=== PATIENT | male | born 1960 | race Caucasian/White ===

== ENCOUNTER 2024-04-02 14:10 | Inpatient (IN) | payer OTHER, SELFPAY ==
[2024-04-02] VITALS (15 sets, daily range): BP systolic 118–159; BP diastolic 58–100; BMI 32.9
--- NOTE | 2024-04-02 09:53 | EDRN ---
Edie GUNTER in room w/pt.
--- NOTE | 2024-04-02 09:55 | ED.GENMED ---
History of Present Illness
General
Chief Complaint: Abdominal Symptoms
Time Seen by Provider: 04/02/24 09:42
History of Present Illness
History of Present Illness:
63-year-old male with history of sarcoidosis presents to the emergency department for evaluation of abdominal distention and bloating with increased belching and flatus, worsening over the past week. Reports a 20+ pound weight loss in the past 3 to
4 months unintentionally. No night sweats. Generally no appetite and early satiety is reported as well. No history of abdominal surgeries. Does report 1 episode of bright red blood per rectum 3 weeks ago but none since. No history of
colonoscopy.
Past History
Past History
ED Past Medical History: None
ED Past Surgical History: None
Social History
Tobacco: Non-smoker
Alcohol: Occasional
Drug: None
Employment: Employed
Review of Systems
Review of Systems
Allergies reviewed?: Yes
All Other Systems: ROS reviewed and negative except as documented in HPI and ROS
Phy Exam
Physical Exam
Physical Exam:
GEN: Well appearing, NAD, WDWN
HEENT: Oral mucosa moist, no scleral icterus
Cardiac: Regular rate and rhythm, no murmur
Lung: No respiratory distress, no tachypnea
Abdomen: Protuberant abdomen/distended, no rigidity, grossly nontender
MSK: No gross deformity or injuries
Skin: Good color, no pallor or jaundice, no rashes
Neuro: AO x3, moves all extremities freely
Psych: disheveled, cooperative
Course
Orders/Labs/Results
Orders:
Orders
04/02/24 Breakfast
NPO
Allow oral meds: No
Allow clear liquids: No
NPO with Ice Chips: No
04/02/24 09:55
CT Abd/Pel (IV only)-DH only Urgent
Comment:
Reason For Exam: abd distention/bloating
04/02/24 10:29
Complete Blood Count/With Diff Urgent
Comprehensive Metabolic Panel Urgent
Lipase Urgent
04/02/24 12:30
0.9% Sodium Chloride 1000 ml [Nss] 1,000 ml IV BOLUS
Piperacillin/Tazo 4.5 Gram [Zosyn] 4.5 gram in 100 ml IV NOW
04/02/24 13:01
Lactic Acid Q4H
Comment: CANCEL 2nd LACTIC ACID IF 1st LACTIC ACID IS LESS THAN 2
Blood Culture Q30M
ARA Source: Blood/Venous
Specimen Description:
04/02/24 13:46
Sequential Compression Device [Pneumatic Compression Sleeves] As Directed
Type: Knee high
DX Deep Vein Thrombosis Video Routine
04/02/24 13:51
Admit/Transfer Patient As Directed
Co-Sign Provider:
Level of Care: Inpatient admission
Assign to:: Medical/Surgical
Physician / Group: alex
Diagnosis: perforated sigmoid malignancy
Reason for Hospitalization: perforated sigmoid malignancy
Expected length of stay greater than two midnights?: Yes
ELOS- Estimated Length of Stay in days: 2
I certify the patient meets the requirements for IP care: Yes
PRN Pain Medication Management As Directed
May give lesser potent ordered pain med per pt: Yes
preference::
Protocol:: Medication orders for pain may be administered in a
manner that supports deferring to patient preference
when the pt is:
- Requesting an ordered lesser potent pain medication.
Least to most potent pain medications are defined
as: acetaminophen < NSAID < tramadol < opioids
(morphine, oxycodone, hydromorphone).
- Requesting a lesser dose of the same medication IF
ORDERED.
- Requesting a less intrusive route of administration
if both routes are prescribed by the provider (PO <
IV).
04/02/24 13:52
Code Status As Directed
Resuscitation Status: Full Code
04/02/24 14:11
Blood Culture Q30M
ARA Source: Blood/Venous
Specimen Description:
04/02/24 14:58
HYDROmorphone [Dilaudid] 0.5 mg IV Q4HPRN PRN
Ondansetron Injectable [Zofran] 4 mg IV Q6HPRN PRN
04/02/24 16:30
Lactic Acid Q4H
Comment: CANCEL 2nd LACTIC ACID IF 1st LACTIC ACID IS LESS THAN 2
Abnormal Lab Results
04/02/24
10:29
WBC 21.3 H 10^3/uL
(4.8-10.8)
RBC 4.35 L 10^6/uL
(4.70-6.10)
Hgb 9.5 L g/dL
(13.0-18.0)
Hct 31.7 L %
(39.0-52.0)
MCV 72.9 L fL
(80.0-94.0)
MCH 21.8 L pg
(27.0-31.0)
MCHC 30.0 L g/dL
(33.0-37.0)
RDW 17.1 H %
(11.5-14.5)
Plt Count 693 H 10^3/uL
(130-400)
Abs Immat Gran (auto) 0.1 H 10^3/uL
(0-0.05)
Absolute Neuts (auto) 18.6 H 10^3/uL
(1.4-6.5)
Absolute Monos (auto) 1.3 H 10^3/uL
(0.1-0.6)
Immature Gran % 0.6 H %
(0-0.5)
Neutrophils % 87.4 H %
(42.2-75.2)
Lymphocytes % 5.6 L %
(20.5-51.1)
Sodium 134 L mmol/L
(135-145)
Glucose 130 H mg/dl
(70-99)
AST 14 L U/L
(17-59)
Total Protein 6.0 L g/dl
(6.3-8.2)
Albumin 2.9 L g/dl
(3.5-5.0)
04/02/24 10:29
04/02/24 10:29
Vital Signs
Initial and Last Documented VS:
Initial Vital Signs
Temp Pulse Resp BP Pulse Ox
98.1 F 93 16 143/89 98
04/02/24 09:13 04/02/24 09:13 04/02/24 09:13 04/02/24 09:13 04/02/24 09:13
Last Documented Vital Signs
Temp Pulse Resp BP Pulse Ox
98.1 F 78 16 130/77 98
04/02/24 09:13 04/02/24 15:20 04/02/24 15:20 04/02/24 15:20 04/02/24 15:20
MDM/Problems Addressed
MDM/Problems Addressed:
Imaging unfortunately reveals a contained perforation of the sigmoid colon likely from malignancy. Patient started on broad-spectrum antibiotics and IV fluids and will admit to the hospital, colorectal surgery consulted for further management
*Critical Care Note
Total Time (30-74mins, 75-104mins- exclusive of procedures): 35 mins
comment:
Critical care time: 35 minutes
Critical care time was exclusive of: Separately billable procedures, treating other patients, and teaching time
Critical care was necessary to treat or prevent imminent or life-threatening deterioration of the following conditions: Colonic perforation requiring urgent OR
Critical care time spent personally by me on the following activities:
[x] Review of old charts
[x] Obtaining history from patient or surrogate
[x] Ordering and review of the laboratory studies
[x] Ordering and review of radiographic studies
[x] Ordering and performing treatments and interventions
[x] Patient patient's response to treatment
[x] Development of treatment plan with patient or surrogate
ED Attending Note
-
Portions of this chart may have been created with voice recognition software.� Occasional wrong word or��sound alike� substitutions may have occurred due to the inherent limitations of voice recognition software.
Discharge Plan
Departure
Patient Disposition: Admit
Date of Disposition: 04/02/24
Time of Disposition: 12:55
Admit to: IMU
Presentation/result/management discussed w/ accepting MD/DO: Hospitalist
Discharge Problem:
Perforated sigmoid colon
Interventions
Interventions:
*Risk Screen - Suicide Last Done: 04/02/24 10:25
*General Assessment Last Done: 04/02/24 10:25
*Neglect/Abuse Screening Last Done: 04/02/24 10:25
ED- Fall Risk Assessment Last Done: 04/02/24 10:25
*ED COVID-19 Vaccine History Last Done: 04/02/24 10:25
*Nursing Disposition Last Done: 04/02/24 15:24
MB-Tinzlh-Cfrihwuovw Assessment Last Done: 04/02/24 10:25
Discharge Date and Time
Discharge Date/Time: 04/02/24 15:25
[2024-04-02 10:57] LABS: % Basophils 0.2 % (0-2); % Immature Granulocytes 0.6 % (0-0.5); % Lymphocytes 5.6 % (20.5-51.1); % Monocytes 6.2 % (1.7-9.3); % Neutrophils 87.4 % (42.2-75.2); Absolute Immature Granulocytes 0.1 10^3/uL (0-0.05); Absolute Lymphocytes 1.2 10^3/uL (1.2-3.4); Absolute Monocytes 1.3 10^3/uL (0.1-0.6); Absolute Neutrophils 18.6 10^3/uL (1.4-6.5); Hematocrit 31.7 % (39.0-52.0); Hemoglobin 9.5 g/dL (13.0-18.0); Mean Corpuscular Hgb 21.8 pg (27.0-31.0); Mean Corpuscular Volume 72.9 fL (80.0-94.0); Mean Platelet Volume 8.3 fL (7.4-10.4); Nucleated Red Blood Cells % 0 % (-); Platelet Count 693 10^3/uL (130-400); Red Blood Cell Count 4.35 10^6/uL (4.70-6.10); Red Cell Dist. Width 17.1 % (11.5-14.5); White Blood Cell Count 21.3 10^3/uL (4.8-10.8)
[2024-04-02 10:59] LABS: ALT (SGPT) 13 U/L (0-50); AST (SGOT) 14 U/L (17-59); Albumin 2.9 g/dl (3.5-5.0); Alkaline Phosphatase 117 U/L (38-126); Blood Urea Nitrogen 18 mg/dl (9-20); Calcium 9.1 mg/dl (8.4-10.2); Carbon Dioxide 29 mmol/L (22-30); Chloride 98 mmol/L (98-107); Estimated Creatinine Clearance 114 ml/min; Glucose 130 mg/dl (70-99); Lipase 40 U/L (23-300); Potassium 4.9 mmol/L (3.5-5.1); Sodium 134 mmol/L (135-145); Total Bilirubin 0.2 mg/dl (0.2-1.3); eGFR > 60.00
[2024-04-02 13:33] LABS: Lactic Acid 1.3 mmol/L (0.7-2.0)
--- NOTE | 2024-04-02 13:39 | CON.CRS ---
Medical History
-
Chief Complaint: abdominal bloating
History of Present Illness:
Mr Jacinto is a 63 yo male with a history of BL THR and sarcoid who presents with nausea with diarrhea and abdominal discomfort over the last 3-4 weeks. He does note one large bloody BM around Thanksgiving but denies bloody stools otherwise. He
notes an intentional weight loss of about 130lbs over the last years or so but a recent unplanned weight loss of 27lbs over the last 5 weeks. He notes increasing abdominal distention and discomfort causing him to present. He notes he is belching but
also passing flatus and some liquid stool with debris. He has never had a colonoscopy and reports a family history of colon ca in his mother. His brother is at bedside to assist with history.
Past Medical History
Past Medical History: Other (Sarcoid)
Past Surgical History: Orthopedic (BL THR)
Social History
Tobacco: Non-Smoker
Alcohol: Occasional
Family History
Family History: Cancer (colon ca in mother at age 53)
Allergies / Home Medications
Allergy/AdvReac Type Severity Reaction Status Date / Time
No Known Allergies Allergy Verified 04/02/24 09:13
�Medication �Instructions �Recorded �Confirmed �Type
Co Q-10 1 tab PO DAILY 09/07/16 09/07/16 History
Fish Oil [place]-3 Softgel 2 tab PO DAILY 09/07/16 09/07/16 History
L Argine 2 tab PO DAILY 09/07/16 09/07/16 History
Lactobacillus acidophilus 10 1 tab PO DAILY 09/07/16 09/07/16 History
billion cell capsule (Probiotic)
Red Yeast Rice 2 tab PO DAILY 09/07/16 09/07/16 History
Tuneric 1 tab PO DAILY 09/07/16 09/07/16 History
Vitamin B Complex 1 tab PO DAILY 09/07/16 09/07/16 History
Vitamin D 1 tab PO DAILY 09/07/16 09/07/16 History
Vitamin E 1 tab PO DAILY 09/07/16 09/07/16 History
glucosamine sulfate dipotassium Cl 2 cap PO DAILY 09/07/16 09/07/16 History
500 mg-chondroitin 400 mg capsule
(Glucosamine Sulfate 2
KCL-Chondroitin)
albuterol sulfate 90 mcg/actuation 1 puff inhalation Q4HPRN PRN 09/09/16 Rx
aerosol inhaler (Ventolin HFA) shortness of breath ##1
azithromycin 250 mg tablet 250 mg PO DAILY #3 tabs 09/09/16 Rx
benzonatate 100 mg capsule 200 mg (2 x 100 mg) PO TIDPRN PRN 09/09/16 Rx
COUGH ##10
cefuroxime axetil 500 mg tablet 500 mg PO BID #10 tabs 09/09/16 Rx
fluticasone propionate 50 1 spray intranasal DAILY ##1 09/09/16 Rx
mcg/actuation nasal
spray,suspension
guaifenesin 100 mg/5 mL oral liquid 100 mg (5 mL) PO Q4HPRN PRN cough 09/09/16 Rx
##30
prednisone 10 mg tablet 10 mg PO .PAPER #40 tabs 09/09/16 Rx
Review of Systems
-
History Source: Patient and Family
All other systems: Negative unless noted
A 10 point review of systems was completed, and was negative except as per HPI.
Physical Exam
Vital Signs
Temp 98.1 F 04/02/24 09:13
Pulse 83 04/02/24 13:00
Resp Rate 16 04/02/24 13:00
Blood pressure 133/88 04/02/24 13:00
SaO2 100 04/02/24 13:00
04/01/24 04/02/24 04/03/24
06:59 06:59 06:59
Actual Weight 106.8 kg
Body Mass Index (BMI) 32.9
Lab Results / Allergies
04/02/24 10:29
04/02/24 10:
WBC 21.3 10^3/uL (4.8-10.8) H 04/02/24 10:
Hgb 9.5 g/dL (13.0-18.0) L 04/02/24 10:
Hct 31.7 % (39.0-52.0) L 04/02/24 10:
Plt Count 693 10^3/uL (130-400) H 04/02/24 10:
Abs Immat Gran (auto) 0.1 10^3/uL (0-0.05) H 04/02/24 10:
Neutrophils % 87.4 % (42.2-75.2) H 04/02/24 10:
Allergy/AdvReac Type Severity Reaction Status Date / Time
No Known Allergies Allergy Verified 04/02/24 09:13
Physical Exam
General: No Apparent Distress
HEENT: Moist Mucous Membranes
Respiratory: Non Labored Respirations
GI: Soft, Tender (generalized but without rebound, rigidity or guarding) and Distended
Skin: Warm and Dry
Neuro: Awake and Alert
Psych: Calm
Data Reviewed
-
CT Scan: Image Personally Visualized and interpreted, Report Reviewed by me, Discussed with Physician, Discussed with Patient and Discussed with Family
Labs: Labs Reviewed by me, Discussed with Physician, Discussed with Patient and Discussed with Family
Old Records: Reviewed
Assessment / Plan
-
Mr Jacinto is a 63 yo male with a history of BL THR and sarcoid who presents with nausea with diarrhea and abdominal discomfort over the last 3-4 weeks. He does note one large bloody BM around Thanksgiving but denies bloody stools otherwise. He
presents with increasing distention and belching. CT imaging with obstructing mass in the sigmoid colon with focal perforation/free air and phlegmonous changes. Afebrile with stable vital signs. Significant leukocytosis noted (wbc 21.3).
Admit for continued treatment
Keep NPO for OR today for emergent operative intervention with exploratory laparotomy and colostomy creation
Continue IV zosyn which was initiated in the ED
IVF as per primary team
Analgesics/antiemetics
SCDs for VTE ppx intraop
--- NOTE | 2024-04-02 13:55 | HPS.HSE ---
Family Physician
-
Family Physician: Alejo England, DO
Chief Complaint
-
abdominal pain
History of Present Illness
63-year-old male past medical history of sarcoidosis, presenting with 3 weeks of abdominal pain, distention and bloating with 20 pound weight loss in the past 3 to 4 months unintentionally. Denies fevers or night sweats. He had 1 episode of bright
red blood per rectum 3 weeks ago but none since. Denies nausea or vomiting. He had been having loose stools until 3 days ago when he stopped having bowel movements. He finally had a bowel movement this morning.
His mother had colon cancer at age of 53 and required colon resection.
He drinks alcohol occasionally. Denies smoking.
Medical History
Past Medical History
Past Medical History: Reports Other (sarcoidosis)
Past Surgical History: Reports Other (Double hip replacement,)
Social History
Tobacco: Non-smoker
Alcohol: Occasional
Drug: None
Family History
Family History: Other (His mother had colon cancer at age of 53 and required colon resection.)
Allergies / Home Medications
Allergies reflects when Allergies were last updated in [facility].
Home Medications with original date entered in [facility]
Allergy/Medication List:
Allergies
Allergy/AdvReac Type Severity Reaction Status Date / Time
No Known Allergies Allergy Verified 04/02/24 09:13
Home Medications
Co Q-10 1 tab PO DAILY 09/07/16
Fish Oil [place]-3 Softgel 2 tab PO DAILY 09/07/16
L Argine 2 tab PO DAILY 09/07/16
Lactobacillus acidophilus 10 billion cell capsule (Probiotic) 1 tab PO DAILY 09/07/16
Red Yeast Rice 2 tab PO DAILY 09/07/16
Tuneric 1 tab PO DAILY 09/07/16
Vitamin B Complex 1 tab PO DAILY 09/07/16
Vitamin D 1 tab PO DAILY 09/07/16
Vitamin E 1 tab PO DAILY 09/07/16
glucosamine sulfate dipotassium Cl 500 mg-chondroitin 400 mg capsule (Glucosamine Sulfate 2 KCL-Chondroitin) 2 cap PO DAILY 09/07/16
albuterol sulfate 90 mcg/actuation aerosol inhaler (Ventolin HFA) 1 puff inhalation Q4HPRN PRN shortness of breath ##1 09/09/16
azithromycin 250 mg tablet 250 mg PO DAILY #3 tabs 09/09/16
benzonatate 100 mg capsule 200 mg (2 x 100 mg) PO TIDPRN PRN COUGH ##10 09/09/16
cefuroxime axetil 500 mg tablet 500 mg PO BID #10 tabs 09/09/16
fluticasone propionate 50 mcg/actuation nasal spray,suspension 1 spray intranasal DAILY ##1 09/09/16
guaifenesin 100 mg/5 mL oral liquid 100 mg (5 mL) PO Q4HPRN PRN cough ##30 09/09/16
prednisone 10 mg tablet 10 mg PO .PAPER #40 tabs 09/09/16
Review of Systems
-
History Source: Patient
A 12 point ROS was completed and negative except as noted: Yes
Constitutional: Reports No Symptoms
EENT: Reports No Symptoms
Respiratory: Reports No Symptoms
Cardiac: Reports No Symptoms
Abdomen/GI: Reports See HPI
: Reports No Symptoms
Musculoskeletal: Reports No Symptoms
Skin: Reports No Symptoms
Neurological: Reports No Symptoms
Endocrine: Reports No Symptoms
Hematologic/Lymphatic: Reports No Symptoms
Psych: Reports No Symptoms
Physical Exam
Vital Signs
Vital Signs
Temp Pulse Resp BP Pulse Ox
98.1 F 83 16 133/88 100
04/02/24 09:13 04/02/24 13:00 04/02/24 13:00 04/02/24 13:00 04/02/24 13:00
Physical Exam
General: Well Developed, Well Nourished and No Apparent Distress
HEENT: NormoCephalic, Moist mucous membranes and Atraumatic
Respiratory: Clear
Cardiac: S1/S2 and Regular Rhythm; No Murmur or Rub
GI: Soft, Normal Bowel Sounds, Tender (diffusely ) and Distended; No Organomegaly
Rectal: Deferred by Provider
Musculoskeletal: No Clubbing, No Cyanosis and No Edema
Skin: No Rash
Neuro: Nonfocal/grossly intact
Laboratory Results
-
04/02/24 10:29
04/02/24 10:29
Laboratory Results
Lactic Acid 1.3 mmol/L (0.7-2.0) 04/02/24 13:01
Total Bilirubin 0.2 mg/dl (0.2-1.3) 04/02/24 10:29
AST 14 U/L (17-59) L 04/02/24 10:29
ALT 13 U/L (0-50) 04/02/24 10:29
Alkaline Phosphatase 117 U/L (38-126) 04/02/24 10:29
Lipase 40 U/L (23-300) 04/02/24 10:29
Data Reviewed
-
Lab Data: Labs Reviewed by me
Old Records: Reviewed
Impression/Plan
-
IMPRESSION:
PLAN:
# Likely perforated sigmoid malignancy versus less likely perforated sigmoid diverticulitis
-CT abdomen pelvis shows segment wall thickening within the mid sigmoid colon extensive adjacent phlegmonous change/developing abscess and focal free air extending superiorly from the sigmoid colon into the adjacent mesentery with associated colonic
obstruction with dilation of the ascending transverse and descending colon
-N.p.o.
-IV fluids
-Zosyn
-Colorectal surgery consulted and plan for OR today
Sarcoidosis
Full code
DVT prophylaxis�SCDs
N.p.o.
[2024-04-02] MEDS: ZOSYN 100 IV (14:15)
[2024-04-02] MEDS: NSS 1000 IV (14:15)
--- NOTE | 2024-04-02 15:15 | EDRN ---
Pt sent to OR w/ pneumatic compression L sized knee stockings but no pump as not available in ED at the time. OR said they will call [facility] for the pneumatic stocking equipment they need.
--- NOTE | 2024-04-02 22:11 | W.IMMPOSTOP ---
Addendum entered and electronically signed by Bi Churchill MD 04/08/24 13:56:
For CDI: peritonitis was not present
Original Note:
Surgical Immed Post Op Note
-
Primary Surgeon: Bi Churchill MD
Assisting Surgeon: Jessika Decker NP, ETIOLOGIST�S, Bassem Reese MD
Pre-op Diagnosis: Large bowel obstruction, perforated sigmoid mass, liver mass
Post-op Diagnosis: Large bowel obstruction, perforated sigmoid mass associated with abscess and invasion into 2 loops of small bowel, liver mass
Procedure Performed: Exploratory laparotomy, sigmoidectomy with en bloc small bowel resection x 2, drainage of abdominal abscess, resection of abdominal wall tumor, biopsy of liver mass, abdominal washout, tap block, creation of end colostomy
Anesthesia Type: General
Specimen / Cultures: Abdominal fluid cultures, sigmoid en bloc with small bowel, liver biopsy
Estimated Blood Loss: 200 mL
IVF 3.25 L
UOP 375 mL
Complications: None
Operative Findings: Murky ascites initially encountered, sent for culture; mid sigmoid mass densely adherent to lower anterior abdominal wall associated with an abscess containing thick green material and tumor invading into the preperitoneal space;
sigmoid mass appeared to invade into the sigmoid mesentery and also to loops of small bowel, one loop was about 50 cm from the ligament of Treitz and another area of mid jejunum; sigmoid mass was invading the base of the small bowel mesentery
posteriorly; the mass was resected en bloc with the 2 loops of small bowel; the small bowel mesentery was salvaged and no ischemic loops of small bowel developed; divided proximally at the proximal sigmoid and distally at the rectosigmoid junction;
divided the small bowel loops that were involved with the mass and medially proximal and distal; mobilized the proximal sigmoid and descending colon up to the proximal descending; evaluated liver and identified a small superficial mass concerning
for metastasis in the right lateral segment, performed 3 Kristian-Cut biopsies and controlled hemostasis with electrocautery; palpable large liver mass in the posterior aspect of the right lateral segment of the liver; washed abdomen out with 5 L of warm
saline; checked hemostasis which was assured; performed end to end antiperistaltic small bowel anastomoses x 2; performed tap block injecting 15 mL of 0.25% Marcaine with epi mixed with 0.3 mg of dexamethasone, injected 3 locations bilaterally in
the transversus abdominis plane; pulled omentum over bowel, placed Seprafilm underlying the fascial incision and closed fascia; matured and colostomy in Mikki fashion
Colon Resection
Colon Resection
Operation performed with curative intent: No
Tumor Location: Sigmoid Colon
Sigmoid Resection: Inferior Mesenteric
--- NOTE | 2024-04-02 22:28 | OR.RPT ---
Operative Report
Operative Report
DATE OF OPERATION: 04/04/2024
SURGEON: Bi Churchill MD
PREOPERATIVE DIAGNOSIS: Large bowel obstruction, perforated sigmoid mass, liver mass
POSTOPERATIVE DIAGNOSIS: Large bowel obstruction, perforated sigmoid mass associated with abscess and invasion into abdominal wall as well as 2 loops of small bowel, liver mass
OPERATION: Exploratory laparotomy, sigmoidectomy with en bloc small bowel resection x 2, drainage abdominal abscess, resection of abdominal wall tumor, biopsy of liver mass, abdominal washout, TAP block, creation of end colostomy
ASSISTANTS:
1. Bassem Reese MD
2. Jessika Decker NP, [facility]
ANESTHESIA: General
ESTIMATED BLOOD LOSS: 200 mL
UOP: 375 mL
IVF: 3.25 L
FINDINGS:
1. Murky ascites initially encountered, sent for abdominal fluid culture
2. Sigmoid mass with perforation and invasion anteriorly in the lower mid anterior abdominal wall associated with abscess cavity; invasion posteriorly into the base of the small bowel mesentery as well as invasion superiorly into 2 loops of small
bowel, each about 10 cm in length; performed en bloc resection of sigmoid with involved small bowel; resected residual tumor seen on the anterior abdominal wall
3. Small liver lesion noted on the lateral anterior right lobe of the liver; performed Kristian-Cut biopsies x 3; reaching over the dome, I was able to palpate a large liver mass, but not able to biopsy due to its location
4. Created end colostomy in the left upper quadrant
SPECIMENS:
1. Abdominal fluid cultures
2. Sigmoid en bloc with small bowel
3. Liver biopsy
DRAINS: None
COMPLICATIONS: No immediate complications.
INDICATIONS: The patient is a 66-year-old male who presented with several weeks of worsening abdominal pain, bloating and weight loss. He never had a colonoscopy. His mother had colon cancer at [address] scan was done showing mid
sigmoid thickening concerning for a mass associated with extensive adjacent phlegmonous change concerning for localized perforation, as well as significant proximal distention of the colon, cecum measuring 10.5 cm, and liver lesion of 6 cm within
the hepatic dome. He was hemodynamically stable and without signs of peritonitis. However, due to the concern for impending cecal perforation, I recommended moving forward uregently with surgery. The operation was discussed with the patient in
detail, including risks, benefits and alternatives. My plan is to explore the abdomen, assess the viability of the proximal colon and assess if this area of the sigmoid is resectable. I anticipate needing to create an ostomy to reduce the risk of
post-operative complications. Risks described included, but are not limited to, bleeding, infection, need to resect more bowel than anticipated, anastomotic leak (if anastomosis created), rectal stump dehiscence, ureteral injury, bowel or solid
organ injury, risks associated with a stoma if created and anesthetic risks. The patient understood and agreed to proceed. The patient's brother was present for this discussion as well.
PROCEDURE IN DETAIL: The patient was taken to the operating room and placed on the operating table in supine position. I assessed his abdominal wall and placed two ostomy markings in the LUQ and LLQ. Sequential compression devices were placed
bilaterally. General anesthesia was induced and the patient was intubated without complication. The patient was placed in lithotomy position with both arms secured to the armboards in extended position. Hughes catheter was placed with sterile
technique. The abdomen was shaved, prepped and draped in a sterile fashion. A time-out was performed verifying the correct patient, procedure, operative site, positioning, and special equipment. Anesthesia placed an nasogastric tube. Preoperative
antibiotics were given. A marking pen was used to jenny out the midline.
Using a 15 blade scalpel, a midline incision was made from 15 cm above the umbilicus and extended caudally to 5 cm above the pubic symphysis. This was taken down to the level of the fascia with Bovie electrocautery and hemostasis was assured. The
linea alba was divided carefully with Bovie electrocautery. Then, 2 Kellys were used to grasp and elevate the peritoneum, which was sharply divided with Metzenbaum scissors, ensuring no peritoneal organs were in the vicinity. Upon entry, I
encountered murky serous ascites, which was suctioned and sent for culture. I extended the fascial incision to the length of the skin incision, taking care to avoid injury to the bladder. An extra large Amando wound protector was placed. The abdomen
was explored. The small bowel was significantly distended, but it appeared healthy without evidence of ischemia. A sigmoid mass was palpable in the mid-sigmoid and was clearly adherent to the lower anterior abdominal wall, to the left of midline.
Due to the distention of the small bowel, this was difficult to visualize. Therefore the Amando was removed. The Bookwalter was set up with 4 points of retractions. The patient was placed in Trendelenburg position with the left side tilted up. I
evaluated the remainder of the colon. The cecum was significantly distended but appeared healthy without cyanosis or perforation. The transverse colon was also significantly distended, but the distention had tapered off a bit towards the splenic
flexure. The small bowel was then swept out of the pelvis. With the sigmoid colon adequately exposed, it appeared that the sigmoid had either perforated into the anterior abdominal wall or invaded into the anterior abdominal wall. I began by taking
down the adhesions bluntly and with sharp dissection, ensuring I was a safe distance from the left ureter. As this dissection was difficult, I continued a lateral to medial mobilization of the proximal sigmoid and descending colon, taking down the
white line of Toldt and mobilizing the mesocolon from the retroperitoneum.
In order to improve the visualization and mobility of the left colon, I elected to decompress the colon at the mid transverse colon. I placed a 2-0 Vicryl pursestring stitch. I created a colotomy with electrocautery. A copious amount of air
evacuated from the transverse colon and right colon. With manual milking of the cecum and ascending colon, more air was evacuated. I milked the descending colon retrograde and expressed more air. I placed a Smith suction tip within the colotomy
and suction some liquid stool, but the majority of the distention was due to gas. The colon was now easily mobile throughout its length. I tied down the pursestring and elevated it. Using a blue load of the TA 60 stapler, I fired underneath the
pursestring stitch and excised the excess tissue. The colotomy was closed nicely and the staple line was hemostatic. I continued my dissection of the mid sigmoid colon. I was able to completely mobilize the proximal sigmoid colon down towards the
base of the mesentery. To improve the mobility of the mass, I stapled the proximal sigmoid colon at least 5 cm proximal to the mass using a green load of the contour stapler. I continued to dissect around the mass with blunt and sharp dissection,
taking care to avoid important structures. The mass was slightly more mobile. The mass seemed to be palpable in the mesentery of the mid-sigmoid colon. It was difficult to assess how extensive the invasion was into the retroperitoneum.
To get a better sense of the aggressiveness of the tumor, I started to visualize the superior aspect of it by packing away the small bowel with lap pads. It became clear that this mass was invading the small bowel at 2 separate points. I followed
one loop and discovered that the involved bowel was about 50 cm distal to the ligament of Treitz. The second loop involved was in the mid�jejunum. At this point, this mass was clearly more extensive than initially anticipated by CT scan. I called
my senior business development manager, Dr. Reese, for his assistance. While waiting for his arrival, I reviewed the CT scan once again to check for any evidence of invasion of the mass into the retroperitoneal structures, such as the RADHA, aorta and iliac arteries.
There was a clear plane between these vital structures. Once Dr. Reese arrived, we assessed the mass and with an extra set of hands, I was able to delineate the involved structures better. The 2 loops of bowel that were involved only included
bowel lumen and not their mesentery. The mass did appear to involve the base of the small bowel mesentery, but this invasion appeared superficial. We discussed possibly aborting with a proximal colostomy and mucous fistula. However, as this mass
did not appear to involve any vital structures, we both felt that the best thing for the patient would be to resect this mass en bloc at this index surgery.
I identified the loops of small bowel involved. The length of involvement was short, estimated to be about 5 cm with each loop. I transected proximally and distally from the point of invasion with 2 to 3 cm of clear margin. I created a hole in
the mesentery at these transection points using electrocautery and stapled the bowel with the DOT stapler. I ligated the mesentery of each resection point with the Voyant LigaSure. The mass was more mobile and it was clear that there was
involvement of the base of the mesentery of the small bowel. We turned back to a lateral approach in order to come around the mass. However, the inflamed tissue was so thick, that this dissection appeared unsafe at this point. Therefore, with
meticulous dissection, we continued the medial mobilization of the mass by dissecting the peritoneum of the small bowel mesentery from the mass. I stayed superficial, avoiding the vessels of the mesentery. This involved a patch of the mesentery
peritoneum, about 3 cm x 6 cm in width. At this point, the small bowel was completely free of the sigmoid mass. I was able to better delineate the plane medially and I cut through the inflammation laterally with the Bovie, ensuring a safe distance
from the left ureter and iliac vessels. The mass was now completely mobilized. I elected a point distal to the mass, at the rectosigmoid junction, which was greater than 5 cm from the mass. I created a hole in the mesentery and divided the bowel
with a green load of the contour stapler. I used the Voyant LigaSure and divided the mesentery, connecting my distal transection point to my proximal transection point. During this ligation, the ureter visualized and was kept safe. The mass,
including the loops of bowel, was passed off as specimen. The rectal stump staple line appeared healthy and was hemostatic.
For my planned end colostomy, I continued mobilizing the proximal descending colon up to the level of the splenic flexure, but without taking this down. I evaluated the operative field for hemostasis, which was assured. I evaluated the liver.
There was a small mass that was located in the right lateral lobe superficially that appeared concerning for metastasis. I took 3 biopsies using a Kristian-Cut device and passed this off for specimen. I controlled hemostasis with electrocautery. The
large 6 cm mass that was seen on CT scan was palpable in the posterior aspect of the right liver, but this was not visible due to its location. I copiously irrigated the abdomen with 5 L of warm saline. Again, the operative field was checked and
hemostasis was assured.
I next performed the small bowel anastomoses. I placed blue towels to isolate the remainder of the operative field. I elevated the antimesenteric portion of the staple line with an Allis clamp and cut off the corner with the Metzenbaum scissors.
After ensuring entry into the bowel lumen, I advanced the DOT stapler into each enterotomy. I aligned the antimesenteric portions of each limb of the small bowel and closed the stapler. I waited about 30 seconds and fired. After removing the
stapler, the staple line was evaluated for hemostasis, which was assured. I aligned the common enterotomy with Allis clamps and stapled and divided with a blue load of the TA 60 stapler. The staple line was hemostatic. I closed the mesenteric
defect with a running 2-0 Vicryl. I placed a crotch stitch with a 3-0 Vicryl interrupted. The lumen of the anastomosis was checked between pinched fingers and appeared nicely patent. The second small bowel anastomosis was performed in the exact
same manner. After these were performed, the blue towels were removed from the operative field and gloves were changed.
The descending colon was nicely mobilized and reached the left upper quadrant ostomy-marking without any tension. Using an Allis, I elevated the skin at my proposed left upper quadrant ostomy site and created a circular incision with
electrocautery. I coned out a small amount of subcutaneous tissue. Using Cash4Gold's and electrocautery, I took this down through the anterior and posterior layers of the fascia, making a cruciate incision in each and splitting the rectus muscle
with a Johanne clamp. I ensured the colostomy tunnel was large enough by passing the tips of 3 fingers through easily. I brought the colon through the colostomy tunnel, ensuring no twist to the mesentery. I directed the mesentery medially. I once
more examined the operative field, including the rectal stump, mesentery, left retroperitoneum and liver biopsy site, and hemostasis was assured.
I performed a tap block, injecting 15 mL of 0.25% Marcaine with epi mixed with dexamethasone in 3 locations in the transversus abdominis plane bilaterally. I pulled the omentum to protect the bowel and anastomoses from the abdominal wall closure.
Seprafilm was placed just below the midline incision. The midline fascia was closed with a running 0 PDS, starting at the corners and ending in the middle. Another 30mL of the same local was injected subcutaneously. The skin was closed with
widely-gapped linda and Telfa jc and, ultimately, an Aquacel dressing was placed. The left-sided colostomy was matured in a Brooked fashion with 3-0 Vicryl stitches, and a stoma appliance was placed.
At this point, the procedure was complete. The patient was awoken and extubated without complication. All needle, sponge and instrument counts were reported as correct. The patient tolerated the procedure well and was transferred to the recovery
room in stable condition with the nasogastric tube and hughes in place.
Of note, Jessika Decker and Bassem Reese, assistants, were necessary during this procedure for traction, countertraction, and exploratory purposes. After Dr. Reese arrived, Jessika scrubbed out. I was present for the entire duration of the case.
DICTATED BY: Bi Churchill MD
[2024-04-02 22:34] LABS: Hematocrit 29.2 % (39.0-52.0); Hemoglobin 9.1 g/dL (13.0-18.0); Mean Corp Hgb Conc. 31.2 g/dL (33.0-37.0); Mean Corpuscular Volume 70.5 fL (80.0-94.0); Mean Platelet Volume 8.7 fL (7.4-10.4); Platelet Count 592 10^3/uL (130-400); Red Blood Cell Count 4.14 10^6/uL (4.70-6.10); White Blood Cell Count 36.2 10^3/uL (4.8-10.8)
[2024-04-02 22:45] LABS: Blood Urea Nitrogen 20 mg/dl (9-20); Carbon Dioxide 26 mmol/L (22-30); Chloride 100 mmol/L (98-107); Estimated Creatinine Clearance 83 ml/min; Glucose 168 mg/dl (70-99); Potassium 4.9 mmol/L (3.5-5.1); Sodium 132 mmol/L (135-145); eGFR > 60.00
--- NOTE | 2024-04-02 23:00 | PTCARENOTE ---
Pt arrived at 22:47 from PACU post Exploratory lap, sigmoidectomy with en bloc small bowel resection x 2, drainage of abdominal abscess, resection of abdominal wall tumor, biopsy of liver mass, abdominal washout, tap block, creation of end
colostomy. Pt AOx3, but drowsy, bed in a low position, call light in reach pt denies pain, care ongoing.
--- NOTE | 2024-04-02 23:02 | SUR.PHASEI ---
frequent reorientation - does not remember coming to hospital or surgery. no pain , vss, discharge to [place] - hand off at bedside
[2024-04-02] MEDS: TORADOL 15 MG IV (23:57)
[2024-04-03] VITALS (8 sets, daily range): BP systolic 96–133; BP diastolic 49–94; PULSE 83; O2SAT 93; BMI 32.4
[2024-04-03] MEDS: ZOSYN 50 IV ×4 (01:34→19:49)
[2024-04-03] MEDS: TORADOL 15 MG IV (04:48)
[2024-04-03 05:26] LABS: Hematocrit 24.3 % (39.0-52.0); Hemoglobin 7.5 g/dL (13.0-18.0); Mean Corp Hgb Conc. 30.9 g/dL (33.0-37.0); Mean Corpuscular Hgb 22.3 pg (27.0-31.0); Mean Corpuscular Volume 72.3 fL (80.0-94.0); Mean Platelet Volume 8.9 fL (7.4-10.4); Platelet Count 514 10^3/uL (130-400); Red Blood Cell Count 3.36 10^6/uL (4.70-6.10); Red Cell Dist. Width 17.2 % (11.5-14.5); White Blood Cell Count 25.7 10^3/uL (4.8-10.8)
[2024-04-03 05:42] LABS: ALT (SGPT) 11 U/L (0-50); AST (SGOT) 16 U/L (17-59); Albumin 2.2 g/dl (3.5-5.0); Alkaline Phosphatase 73 U/L (38-126); Blood Urea Nitrogen 22 mg/dl (9-20); Calcium 7.9 mg/dl (8.4-10.2); Carbon Dioxide 27 mmol/L (22-30); Chloride 101 mmol/L (98-107); Estimated Creatinine Clearance 83 ml/min; Glucose 157 mg/dl (70-99); Potassium 4.3 mmol/L (3.5-5.1); Sodium 134 mmol/L (135-145); Total Bilirubin 0.3 mg/dl (0.2-1.3); Total Protein 4.7 g/dl (6.3-8.2); eGFR > 60.00
[2024-04-03 08:52] LABS: % Basophils 0.2 % (0-2); % Immature Granulocytes 0.5 % (0-0.5); % Lymphocytes 4.1 % (20.5-51.1); % Monocytes 4.4 % (1.7-9.3); % Neutrophils 90.8 % (42.2-75.2); Absolute Immature Granulocytes 0.1 10^3/uL (0-0.05); Absolute Lymphocytes 1.1 10^3/uL (1.2-3.4); Absolute Monocytes 1.1 10^3/uL (0.1-0.6); Absolute Neutrophils 23.3 10^3/uL (1.4-6.5); Nucleated Red Blood Cells % 0 % (-)
--- NOTE | 2024-04-03 10:22 | W.PN.CRS1 ---
Addendum entered and electronically signed by Bi Churchill MD 04/03/24 18:41:
63-year-old male with PMH of sarcoidosis, bilateral THR surgery who presents with several weeks of diarrhea, associated with increase in abdominal pain over the last 2 to 3 weeks, associated with increase in bloating over the last week; has had 20
pound weight loss in the last 5 weeks, never had a colonoscopy; family history of colon cancer in mother; WBC 21.3, CT showing large bowel obstruction with cecum of 10 cm, transition point of mid sigmoid mass associated with localized perforation,
as well as 6 cm liver lesion
POD 1 open sigmoidectomy with en bloc small bowel resection x2, liver biopsy, TAP block, end-colostomy
AFVSS, ABD soft, non-distended, appropriately tender, no rebound or guarding; ostomy pink and productive of stool; NGT in place
WBC 25.7 from 36.2, Hb 7.1 from 7.5, Cr 1.1, UOP > 745 mL
� Large bowel obstruction due to sigmoid mass with invasion into the anterior abdominal wall and small bowel
�Follow-up path; most likely colon cancer; will need CT chest and CEA for staging, but appears metastatic
�Continue n.p.o. and NGT with IVF
� Continue pain control with Dilaudid as needed
� Hold DVT PPx for drop in Hb; likely delutional and intraoperative blood loss; low suspicion for active bleeding
�Repeat CBC in AM
� OOB/IS, appreciate PT
�IV Zosyn x 4 days
� Appreciate hospitalist
Original Note:
Today's Communication / Plan
-
NGT/NPO/IVF
Assessment/Plan
-
63 yo male presenting with large and small bowel obstruction secondary to large perforated sigmoid mass associated with abscess and invasion into 2 loops of small bowel, liver mass
POD #1 Exploratory laparotomy, sigmoidectomy with en bloc small bowel resection x 2, drainage of abdominal abscess, resection of abdominal wall tumor, biopsy of liver mass, abdominal washout, tap block, creation of end colostomy
AFVSS
Acute anemia present in setting of hemodilution and expected operative losses
Await return of bowel function
Leukocytosis trending down
--Continue with NGT to continuous suction
--Start IVF with LR at 125ml/hr
--Continue NPO, ok for ice chips for comfort
--IV PPI for GI ppx
--Analgesics/antiemetics as needed
--OOB/ambulate
--C/W hughes, will plan voiding trial in am
--Wound care consult for ostomy teaching
--OR path pending
--Hold chemical vte ppx until h/h stable, continue SCDs while in bed
Subjective Data
Procedure
04/02/24 Exploratory laparotomy, sigmoidectomy with en bloc small bowel resection x 2, drainage of abdominal abscess, resection of abdominal wall tumor, biopsy of liver mass, abdominal washout, tap block, creation of end colostomy
Subjective Data
Date of Service: April 03, 2024
Patient seen and examined at bedside. Notes preop pain is now resolved. Feeling much better. Denies n/v.
Objective Data
-
Vital Signs
Temp Pulse Resp BP Pulse Ox
97.9 F 79 18 105/60 95
04/03/24 08:01 04/03/24 08:01 04/03/24 08:01 04/03/24 08:01 04/03/24 08:01
Intake & Output
04/02/24 04/03/24 04/04/24
06:59 06:59 06:59
Intake Total 480 / 540 60 / 60
Output Total 775 / 835 60 / 60
Balance -295 / -295 0 / 0
Intake:
IV fluids (Total) 400 / 400
normosol 100 / 100
IV piggybacks 50 / 50
Amount instilled into GI Tube ( 60 / 60
Total)
Dale Sump 30 / 90 60 / 60
Output:
Gastrointestinal tube output (
Total)
Dale Sump
Urine, Hughes 745 / 745
Other:
Number of unmeasured liquid
stools
Colostomy 50
Lab Results
04/03/24 04:36
Physical Exam
-
General: No Acute Distress
HEENT: Other (NGT with minimal brown output)
Abdomen: Soft, Distended (mild), Bowel Movement (stoma pink/viable with liquid pasty stool in appliance) and No Flatus (appliance flat)
Skin: Warm and Dry
Wound: Dressing in Place and Dressing Dry
[2024-04-03] MEDS: LR 1000 IV ×2 (11:04→23:45)
[2024-04-03] MEDS: NSS (PRESERVATIVE FREE) 10 ML IV (11:04)
[2024-04-03] MEDS: PROTONIX IV 40 MG IV (11:05)
[2024-04-03 12:04] LABS: Hematocrit 23.8 % (39.0-52.0); Hemoglobin 7.1 g/dL (13.0-18.0); Mean Corp Hgb Conc. 29.8 g/dL (33.0-37.0); Mean Corpuscular Hgb 21.7 pg (27.0-31.0); Mean Corpuscular Volume 72.8 fL (80.0-94.0); Mean Platelet Volume 8.5 fL (7.4-10.4); Platelet Count 477 10^3/uL (130-400); Red Blood Cell Count 3.27 10^6/uL (4.70-6.10); Red Cell Dist. Width 17.2 % (11.5-14.5)
--- NOTE | 2024-04-03 13:45 | W.PN.HOSP.TC ---
Today's Communication/Plan
-
See above
Follow HH in am
Assessment / Plan
Assessment / Plan
# Acute abdominal pain sec to perforated sigmoid mass
# Liver mass
-CT abdomen pelvis shows segment wall thickening within the mid sigmoid colon extensive adjacent phlegmonous change/developing abscess and focal free air extending superiorly from the sigmoid colon into the adjacent mesentery with associated colonic
obstruction with dilation of the ascending transverse and descending colon
Status post emergent exploratory laparotomy 04/03
Findings - Large bowel obstruction, perforated sigmoid mass associated with abscess and invasion into 2 loops of small bowel, liver mass
Procedure - Exploratory laparotomy, sigmoidectomy with en bloc small bowel resection x 2, drainage of abdominal abscess, resection of abdominal wall tumor, biopsy of liver mass, abdominal washout, tap block, creation of end colostomy
CW NPO, pain med, NG tube suction.
Await return of bowel function.
CW emp abx. Abdo fluid cx pending.
Consult Onc depending on bx .
# Acute anemia suspect secondary to dilution and blood loss.
Aim for H&H more than 7.0.
Continue to follow H&H for now.
Sarcoidosis
Full code
DVT prophylaxis�SCDs
Anticipated Discharge: > 48 hours
Subjective/Interval History
-
Date of Service: April 03, 2024
S/p emergent laparotomy and bowel resection with liver biopsy.
NG tube in. Denies any nausea. Abdominal pain okay with the medication.
Denies any shortness of breath.
No fevers or chills.
Objective Data
-
Labs:
Laboratory Results
04/03/24 04/03/24
04:36 11:42
WBC 25.7 H 19.0 H
Hgb 7.5 L 7.1 L
Hct 24.3 L 23.8 L
Plt Count 514 H 477 H
Sodium 134 L
Potassium 4.3
Chloride 101
Carbon Dioxide 27
BUN 22 H
Creatinine 1.1
Glucose 157 H
Calcium 7.9 L
Total Bilirubin 0.3
AST 16 L
ALT 11
Alkaline Phosphatase 73
Vital Signs:
Vital Signs
Temp Pulse Resp BP Pulse Ox
97.8 F 80 18 102/64 95
04/03/24 11:30 04/03/24 11:30 04/03/24 11:30 04/03/24 11:30 04/03/24 11:30
I&O
04/02/24 04/03/24 04/04/24
06:59 06:59 06:59
Intake Total 480 / 540 60 / 60
Output Total 775 / 835 60 / 60
Balance -295 / -295 0 / 0
Review of Systems
-
Constitutional: Denies Fever
EENT: Denies Sore Throat
Respiratory: Denies Cough or Trouble Breathing
Cardiac: Denies Chest Pain
Abdomen/GI: Reports Abdominal Pain; Denies Nausea
Neuro: Denies Dizzy
Physical Exam
-
General: No Apparent Distress
HEENT: Moist Mucous Membranes
Respiratory: Clear to Auscultation (anteriorly) and Non Labored Respirations; Negative Accessory Resp Muscle Use
Cardiac: Regular Rhythm and S1/S2
GI: Soft and Other (surgical dressing clean ); Negative Normal Bowel Sounds
Neuro: AO x 3
Data Reviewed
-
Labs: Labs Reviewed by me
--- NOTE | 2024-04-03 15:49 | CM ---
CM attempted visit to complete IA
Pt quite sleepy and plan for completion of IA tomorrow
Pt POD#1 new ostomy
[2024-04-03] MEDS: DILAUDID 0.5 MG IV ×2 (16:32→23:56)
--- NOTE | 2024-04-03 16:39 | PTCARENOTE ---
Pt with c/o lightheadedness while standing at bedside during PT session. Dr Churchill made aware. Repeat CBC for 1800. Care remains ongoing.
--- NOTE | 2024-04-03 17:32 | PTCARENOTE ---
RN repeatedly restarting IVF during this shift due IV pump alarming 'occlusion'. Pt unable to keep his arm straight. Pt educated on importance of IVF, hydration status/ dehydration, and needing to keep arm straight for infusion. Pt also educated on
need to alert staff if pump begins alarming. Pt verbalizes understanding but continues to bend arm and not notifying staff to alarming pump. No No applied to pts arm, RN continuing frequent rounds.
[2024-04-03 18:40] LABS: Hematocrit 21.8 % (39.0-52.0); Mean Corp Hgb Conc. 32.1 g/dL (33.0-37.0); Mean Corpuscular Hgb 22.6 pg (27.0-31.0); Mean Corpuscular Volume 70.3 fL (80.0-94.0); Mean Platelet Volume 8.6 fL (7.4-10.4); Platelet Count 508 10^3/uL (130-400); White Blood Cell Count 19.5 10^3/uL (4.8-10.8)
[2024-04-04] VITALS (11 sets, daily range): BP systolic 101–130; BP diastolic 55–76; BMI 32.2
[2024-04-04] MEDS: ZOSYN 50 IV ×4 (02:17→20:40)
[2024-04-04 08:51] LABS: Hematocrit 22.1 % (39.0-52.0); Hemoglobin 6.7 g/dL (13.0-18.0); Mean Corp Hgb Conc. 30.3 g/dL (33.0-37.0); Mean Corpuscular Hgb 22.3 pg (27.0-31.0); Mean Corpuscular Volume 73.4 fL (80.0-94.0); Mean Platelet Volume 8.4 fL (7.4-10.4); Platelet Count 428 10^3/uL (130-400); Red Blood Cell Count 3.01 10^6/uL (4.70-6.10); Red Cell Dist. Width 17.1 % (11.5-14.5); White Blood Cell Count 13.7 10^3/uL (4.8-10.8)
[2024-04-04 08:59] LABS: Blood Urea Nitrogen 16 mg/dl (9-20); Calcium 7.9 mg/dl (8.4-10.2); Carbon Dioxide 29 mmol/L (22-30); Chloride 103 mmol/L (98-107); Estimated Creatinine Clearance 101 ml/min; Glucose 89 mg/dl (70-99); Potassium 3.8 mmol/L (3.5-5.1); Sodium 136 mmol/L (135-145); eGFR > 60.00
[2024-04-04] MEDS: NSS (PRESERVATIVE FREE) 10 ML IV (09:09)
[2024-04-04] MEDS: PROTONIX IV 40 MG IV (09:09)
[2024-04-04] MEDS: LR 1000 IV ×2 (09:12→23:44)
[2024-04-04] MEDS: DILAUDID 0.5 MG IV (09:21)
--- NOTE | 2024-04-04 11:13 | W.PN.CRS1 ---
Today's Communication / Plan
-
dc ngt
1 unit prbcs
cea
await void
Assessment/Plan
-
63 yo male presenting with large and small bowel obstruction secondary to large perforated sigmoid mass associated with abscess and invasion into 2 loops of small bowel, liver mass
POD #2 Exploratory laparotomy, sigmoidectomy with en bloc small bowel resection x 2, drainage of abdominal abscess, resection of abdominal wall tumor, biopsy of liver mass, abdominal washout, tap block, creation of end colostomy
AFVSS
Hgb 6.7 (7.0)
Leukocytosis trending down 13.7 (19.5)
04/04- 1 unit prbcs
--Discontinue NGT
--1 unit PRBCs given anemia, trend H/H
--Continue IV LR at 125ml/hr
--Remain NPO with chips for today
--Continue IV PPI for GI ppx
--Analgesics/antiemetics as needed
--OOB/ambulate
--Await void, hughes discontinued
--Wound care consult for ostomy teaching
--OR path pending
--Hold chemical vte ppx until h/h stable, continue SCDs while in bed
--IV zosyn for 4 days total
--Eventual CT chest for staging
--CEA ordered for AM
Subjective Data
Procedure
04/02/24 Exploratory laparotomy, sigmoidectomy with en bloc small bowel resection x 2, drainage of abdominal abscess, resection of abdominal wall tumor, biopsy of liver mass, abdominal washout, tap block, creation of end colostomy
Subjective Data
Date of Service: April 04, 2024
Patient states he is still in a bit of pain and requiring narcotics. He denies nausea or vomiting. He is having bowel function.
Objective Data
-
Vital Signs
Temp Pulse Resp BP Pulse Ox
97.7 F 84 20 120/63 100
04/04/24 07:21 04/04/24 07:21 04/04/24 07:21 04/04/24 07:21 04/04/24 07:21
Intake & Output
04/03/24 04/04/24 04/05/24
06:59 06:59 06:59
Intake Total 480 / 540 2440 / 2440
Output Total 775 / 835 1745 / 1745
Balance -295 / -295 695 / 695
Intake:
IV fluids (Total) 400 / 400 2000 / 2000
normosol 100 / 100
IV piggybacks 50 / 50 200 / 200
Amount instilled into GI Tube ( 30 / 90 240 / 240
Total)
[place] Sump 30 / 90 240 / 240
Output:
Liquid stool amount 885 / 885
Colostomy 885 / 885
Gastrointestinal tube output ( 30 / 90 460 / 460
Total)
[place] Sump 30 / 90 460 / 460
Urine, Hughes 745 / 745 400 / 400
Other:
Number of unmeasured liquid
stools
Colostomy 50
Lab Results
04/04/24 08:13
04/04/24 08:13
Physical Exam
-
General: No Acute Distress and AOx3
Abdomen: Soft, Non Distended, Tender (mild) and Other (colostomy warm and pink with function)
Skin: Warm and Dry
Incision: Clear, Dry, Intact
--- NOTE | 2024-04-04 11:30 | PTCARENOTE ---
NGT removed per PA order.
[2024-04-04] MEDS: LR IV (12:48)
--- NOTE | 2024-04-04 13:25 | WOUNDNOTE ---
[facility] RN note: Patient s/p ostomy surgery sigmoidectomy with ostomy creation. Assessment and care completed by this typewriter repairer and RN, Leonor.
See H&P for complete history.
PMH: Sarcoidosis
Ostomy location and type: LUQ colostomy created on 04/02.
Per colorectal surgery, ok to remove midline dressing and change pouch today. Patient reported fatigue from surgery and will need more teaching. He states he will be doing all the care himself and lives alone. Midline with jc intact and minimal
drainage. Ostomy pink and budded. Appliance changed with Desiree ostomy barrier #[id number] and pouch #[id number].
Ostomy supplies ordered from [facility] and at bedside.
Note to case management: VN services recommended for ostomy teaching if patient does not go to SNF.
Nursing care plan updated, will follow as needed.
--- NOTE | 2024-04-04 13:38 | W.PN.HOSP.TC ---
Addendum entered and electronically signed by Theresa Bishop MD 04/04/24 14:47:
I saw and evaluated the patient independently. I reviewed the resident�s note and agree with findings and plan as documented by Dr. Ramírez.
GENERAL: well developed, well nourished, male in no apparent distress
HEENT:NC/AT--NGT
HEART: regular rate and rhythm, +S1, +S2
LUNGS : clear to auscultation bilaterally
ABDOM: soft, nontender, nondistended, + bowel sounds, +ostomy with stool present
EXT: no cyanosis, clubbing, or edema
NEUROLOGIC: grossly intact
Acute abdominal pain secondary to perforated sigmoid mass--highly suspect malignancy as cause--postop day 2 for exploratory laparotomy, sigmoidectomy with small bowel resection, drainage of abdominal abscess, resection of abdominal wall tumor,
biopsy of liver mass and creation of end colostomy--NG tube removed as per colorectal surgery, appreciate input--not advancing diet just yet--continue antibiotic coverage with Zosyn for total of 4 days--will eventually need hematology/oncology if
malignancy found and CT chest for staging--CEA pending--biopsy pending--WBC count improved
Anemia--last normal hemoglobin was 14.6 in 2017--unclear what baseline is--would not be surprised if this is acute blood loss anemia from surgery and postop IV fluid dilution on anemia of chronic disease from likely malignancy (MCV low, platelet
count high)--admission hemoglobin was 9.5, down to 6.7 by today's blood work--transfuse 2 units packed red blood cells
Hyponatremia--mild only, lowest was 132--today 136--possibly paraneoplastic from presumed malignancy
DVT proph
code status -- FULL CODE
Original Note:
Today's Communication/Plan
-
Continue IV Zosyn
Transfuse 2 units of packed RBCs
Remain NPO with chips for today
Continue with IV LR at 125 mL/h
Wound care consult for ostomy teaching
Discontinue NGT and Laws's(await void)
Assessment / Plan
Assessment / Plan
IMPRESSION
63 yo male presenting with large and small bowel obstruction secondary to large perforated sigmoid mass associated with abscess and invasion into 2 loops of small bowel, liver mass
Mother had a history of colon cancer at the age of 53, patient never had a screening colonoscopy done
POD #2 Exploratory laparotomy, sigmoidectomy with en bloc small bowel resection x 2, drainage of abdominal abscess, resection of abdominal wall tumor, biopsy of liver mass, abdominal washout, tap block, creation of end colostomy
ASSESSMENT/PLAN
Anemia most likely secondary to blood loss/dilutional
Hgb 6.7 (7.0)
Transfused 2 units of packed RBCs due to anemia
Continue to trend H/H
LEUKOCYTOSIS
Patient had a TLC count of 21.3 on the day of admission on Thursday, April 02, 2024
TLC is trending down, April 04, 2024 is 13.7
Continue to monitor TLC count
# Acute abdominal pain sec to perforated sigmoid mass
-CT abdomen pelvis 04/02/2024
Shows segment wall thickening within the mid sigmoid colon extensive adjacent phlegmonous change/developing abscess and focal free air extending superiorly from the sigmoid colon into the adjacent mesentery with associated colonic obstruction with
dilation of the ascending transverse and descending colon
Status post emergent exploratory laparotomy 04/03, today's postoperative day 2
Procedure - Exploratory laparotomy, sigmoidectomy with en bloc small bowel resection x 2, drainage of abdominal abscess, resection of abdominal wall tumor, biopsy of liver mass, abdominal washout, tap block, creation of end colostomy
As per follow-up of colorectal surgery
Continue IV LR at 125ml/hr
--Remain NPO with chips for today
--Continue IV PPI for GI ppx
--Analgesics/antiemetics as needed
--OOB/ambulate
--Await void, ellen discontinued
--Wound care consult for ostomy teaching
--OR path pending
--Hold chemical vte ppx until h/h stable, continue SCDs while in bed
--IV zosyn for 4 days total
--Eventual CT chest for staging
--CEA ordered for AM
CW NPO, pain med, NG tube suction.
Await return of bowel function.
CW emp abx. Abdo fluid cx pending.
Consult Onc depending on bx .
Sarcoidosis
Full code
DVT prophylaxis�SCDs
Anticipated Discharge: 24 - 48 hours
Subjective/Interval History
-
Date of Service: April 04, 2024
No active issues, patient passing flatus, reports improvement in bloating/abdominal distention and adequate pain management
Denies Fever, Denies Sore Throat,Denies Cough or Trouble Breathing, Denies Chest Pain
Objective Data
-
Labs:
Laboratory Results
04/04/24
08:13
WBC 13.7 H
Hgb 6.7 L*
Hct 22.1 L
Plt Count 428 H
Sodium 136
Potassium 3.8
Chloride 103
Carbon Dioxide 29
BUN 16
Creatinine 0.9
Glucose 89
Calcium 7.9 L
Vital Signs:
Vital Signs
Temp Pulse Resp BP Pulse Ox
97.5 F 75 16 111/55 93
04/04/24 13:32 04/04/24 13:32 04/04/24 13:32 04/04/24 13:32 04/04/24 11:02
I&O
04/03/24 04/04/24 04/05/24
06:59 06:59 06:59
Intake Total 480 / 540 2440 / 2440 0 / 0
Output Total 775 / 835 1745 / 1745
Balance -295 / -295 695 / 695 0 / 0
Review of Systems
-
All other systems: Reviewed and negative
Physical Exam
-
General: Well Developed and No Apparent Distress
HEENT: Moist Mucous Membranes and Anicteric
Respiratory: Clear to Auscultation and Other (No wheezes,ronchi or rales)
Cardiac: Regular Rhythm and S1/S2
GI: Soft, Nondistended, Ostomy (Bag had greenish output) and Other (Dressing clean)
Skin: Warm and Dry
Neuro: Awake and Oriented
Psych: Calm and Other (and cooperative)
--- NOTE | 2024-04-04 13:39 | CM ---
Patient seen at bedside with physicians. Patient states that he lives alone in a ranch style home with [address] enter[address] Patient Dr. Alvarado is his PCP and he uses the [facility] in [place]. Patient with new Ostomy and pending pt/ot assessment.
Patient stated he has [facility]admissions. CM updated admissions. Therapy recommending Acute Rehab. CM will continue to follow for discharge planning needs.
Plan; Acute Rehab vs SNF
--- NOTE | 2024-04-04 17:25 | PTCARENOTE ---
Patient OOB to chair with assist x1 and walker. Patient tolerated sitting in chair for 2 hours. Patient has no c/o of nausea since NGT was removed. Patient encouraged coughing and deep breathing.
[2024-04-04 20:42] LABS: Hematocrit 26.7 % (39.0-52.0); Hemoglobin 8.5 g/dL (13.0-18.0)
[2024-04-05] MEDS: ZOSYN 50 IV ×4 (02:26→20:46)
[2024-04-05 03:01] VITALS: BP 128/68; BMI 32.1
[2024-04-05] MEDS: LR 1000 IV (06:23)
[2024-04-05 07:31] LABS: % Basophils 0.1 % (0-2); % Eosinophils 0.7 % (0-6); % Immature Granulocytes 1.5 % (0-0.5); % Monocytes 6.8 % (1.7-9.3); % Neutrophils 77.9 % (42.2-75.2); Absolute Eosinophils 0.1 10^3/uL (0-0.7); Absolute Immature Granulocytes 0.2 10^3/uL (0-0.05); Absolute Lymphocytes 1.5 10^3/uL (1.2-3.4); Absolute Monocytes 0.8 10^3/uL (0.1-0.6); Absolute Neutrophils 8.8 10^3/uL (1.4-6.5); Hematocrit 25.2 % (39.0-52.0); Hemoglobin 7.9 g/dL (13.0-18.0); Mean Corp Hgb Conc. 31.3 g/dL (33.0-37.0); Mean Corpuscular Hgb 23.4 pg (27.0-31.0); Mean Corpuscular Volume 74.8 fL (80.0-94.0); Mean Platelet Volume 8.8 fL (7.4-10.4); Nucleated Red Blood Cells % 0 % (-); Platelet Count 379 10^3/uL (130-400); Red Blood Cell Count 3.37 10^6/uL (4.70-6.10); Red Cell Dist. Width 17.5 % (11.5-14.5); White Blood Cell Count 11.3 10^3/uL (4.8-10.8)
--- NOTE | 2024-04-05 07:33 | W.PN.HOSP.TC ---
Addendum entered and electronically signed by Theresa Bishop MD 04/05/24 14:23:
I saw and evaluated the patient independently. I reviewed the resident�s note and agree with findings and plan as documented by Dr. Ramírez.
GENERAL: well developed, well nourished, male in no apparent distress
HEENT:NC/AT--NGT out, having clears
HEART: regular rate and rhythm, +S1, +S2
LUNGS : clear to auscultation bilaterally
ABDOM: soft, nontender, nondistended, + bowel sounds, +ostomy with stool present
EXT: no cyanosis, clubbing, or edema
NEUROLOGIC: grossly intact
Acute abdominal pain secondary to perforated sigmoid mass--highly suspect malignancy as cause--postop day 3 for exploratory laparotomy, sigmoidectomy with small bowel resection, drainage of abdominal abscess, resection of abdominal wall tumor,
biopsy of liver mass and creation of end colostomy--NG tube removed as per colorectal surgery, appreciate input--tolerating clears--continue antibiotic coverage with Zosyn for total of 4 days--will eventually need hematology/oncology if malignancy
found and CT chest for staging--CEA pending--biopsy pending--WBC count improved
Anemia--last normal hemoglobin was 14.6 in 2017--unclear what baseline is--would not be surprised if this is acute blood loss anemia from surgery and postop IV fluid dilution on anemia of chronic disease from likely malignancy (MCV low, platelet
count high)--admission hemoglobin was 9.5, down to 6.7, s/p 2 units packed red blood cells
Hyponatremia--mild only, lowest was 132--today 137--possibly paraneoplastic from presumed malignancy
DVT proph
code status -- FULL CODE
Original Note:
Today's Communication/Plan
-
Follow wound cultures
Allow clear liquids after review with colorectal surgeon
Continue to trend H/H
Assessment / Plan
Assessment / Plan
IMPRESSION
63 yo male presenting with large and small bowel obstruction secondary to large perforated sigmoid mass associated with abscess and invasion into 2 loops of small bowel, liver mass
Mother had a history of colon cancer at the age of 53, patient never had a screening colonoscopy done
POD #3 Exploratory laparotomy, sigmoidectomy with en bloc small bowel resection x 2, drainage of abdominal abscess, resection of abdominal wall tumor, biopsy of liver mass, abdominal washout, tap block, creation of end colostomy
ASSESSMENT/PLAN
Anemia most likely secondary to blood loss from surgery/dilutional/Malignancy
Hgb 8.5 after transfusion of 2 packs of RBCs-04/04/2024
Hgb today 04/05/2024-7.9
Continue to trend H/H
LEUKOCYTOSIS
Patient had a TLC count of 21.3 on the day of admission on Thursday, April 02, 2024
TLC is trending down, April 04, 2024 is 13.7,04/05/2024-11
Patient is on zosyn since 04/03/2024
Continue to monitor TLC count,trending down
# Acute abdominal pain sec to perforated sigmoid mass
-CT abdomen pelvis 04/02/2024
Shows segment wall thickening within the mid sigmoid colon extensive adjacent phlegmonous change/developing abscess and focal free air extending superiorly from the sigmoid colon into the adjacent mesentery with associated colonic obstruction with
dilation of the ascending transverse and descending colon
Status post emergent exploratory laparotomy 04/03, today's postoperative day 2
Procedure - Exploratory laparotomy, sigmoidectomy with en bloc small bowel resection x 2, drainage of abdominal abscess, resection of abdominal wall tumor, biopsy of liver mass, abdominal washout, tap block, creation of end colostomy
Pain meds as needed
Hyponatremia
Patient had an episode of mild hyponatremia possibly secondary to malignancy.Currently stable at 136,137continue to monitor
DIET
Tolerating clear liquids well
Advance diet as tolerated
PT OT evaluation done on April 03, 2024
Recommended acute rehab for postacute care, reason for recommendation medical complexity and physical limitations
Sarcoidosis
Full code
DVT prophylaxis�SCDs
Anticipated Discharge: 24 - 48 hours
Subjective/Interval History
-
Date of Service: April 05, 2024
Mild pain at the surgery site,otherwise feels well
Objective Data
-
Labs:
Laboratory Results
04/04/24 04/05/24
20:25 06:16
WBC 11.3 H
Hgb 8.5 L D 7.9 L
Hct 26.7 L 25.2 L
Plt Count 379
Sodium Pending
Potassium Pending
Chloride Pending
Carbon Dioxide Pending
BUN Pending
Creatinine Pending
Glucose Pending
Calcium Pending
Total Bilirubin Pending
AST Pending
ALT Pending
Alkaline Phosphatase Pending
Vital Signs:
Vital Signs
Temp Pulse Resp BP Pulse Ox
98.6 F 70 18 128/68 94
04/05/24 03:01 04/05/24 03:01 04/05/24 03:01 04/05/24 03:01 04/05/24 03:01
I&O
04/04/24 04/05/24 04/06/24
06:59 06:59 06:59
Intake Total 2440 / 2440 3190 / 3190
Output Total 1745 / 1745 1300 / 1300
Balance 695 / 695 1890 / 1890
Review of Systems
-
All other systems: Reviewed and negative
Physical Exam
-
General: Well Developed, Well Nourished and Other (appears weak and tired)
HEENT: Normocephalic, Moist Mucous Membranes and PERRLA
Respiratory: Clear to Auscultation and Other (No wheezes,ronchi or rales)
Cardiac: Regular Rhythm and S1/S2
GI: Soft, Nontender and Ostomy (with stool output)
Musculoskeletal: No Clubbing, No Cyanosis and No Edema
Skin: Warm and Dry
Neuro: Awake, Oriented and No Motor Deficits
Psych: Calm
[2024-04-05 07:44] LABS: ALT (SGPT) 11 U/L (0-50); AST (SGOT) 19 U/L (17-59); Albumin 2.1 g/dl (3.5-5.0); Alkaline Phosphatase 65 U/L (38-126); Blood Urea Nitrogen 12 mg/dl (9-20); Calcium 7.7 mg/dl (8.4-10.2); Carbon Dioxide 26 mmol/L (22-30); Chloride 105 mmol/L (98-107); Estimated Creatinine Clearance > 125 ml/min; Glucose 72 mg/dl (70-99); Magnesium 2.4 mg/dl (1.6-2.3); Potassium 3.5 mmol/L (3.5-5.1); Sodium 137 mmol/L (135-145); Total Bilirubin 0.4 mg/dl (0.2-1.3); Total Protein 4.4 g/dl (6.3-8.2); eGFR > 60.00
[2024-04-05 08:14] VITALS: BP 128/69
[2024-04-05] MEDS: PROTONIX IV 40 MG IV (08:26)
[2024-04-05] MEDS: NSS (PRESERVATIVE FREE) 10 ML IV (08:26)
[2024-04-05 11:02] VITALS: BP 116/59
--- NOTE | 2024-04-05 11:17 | W.PN.CRS1 ---
Today's Communication / Plan
-
Clear liquids with Ensure
Assessment/Plan
-
63 yo male presenting with large and small bowel obstruction secondary to large perforated sigmoid mass associated with abscess and invasion into 2 loops of small bowel, liver mass
POD # 3 exploratory laparotomy, sigmoidectomy with en bloc small bowel resection x 2, drainage of abdominal abscess, resection of abdominal wall tumor, biopsy of liver mass, abdominal washout, tap block, creation of end colostomy
AFVSS
Hgb 7.9
Leukocytosis trending down, 11.3 from 13.7
04/04- 1 unit prbcs
--Advance diet to clears with Ensure
-- trend hemoglobin
--Continue IV LR at 125ml/hr, okay to decrease if tolerating clears
--Continue IV PPI for GI ppx
--Analgesics/antiemetics as needed
--OOB/ambulate
--Wound care consult for ostomy teaching
--OR path pending
--Hold chemical vte ppx until h/h stable, continue SCDs while in bed
--IV zosyn for 4 days total, day 3 of 4
--Eventual CT chest for staging
--CEA pending
Subjective Data
Procedure
04/02/24 Exploratory laparotomy, sigmoidectomy with en bloc small bowel resection x 2, drainage of abdominal abscess, resection of abdominal wall tumor, biopsy of liver mass, abdominal washout, tap block, creation of end colostomy
Subjective Data
Date of Service: April 05, 2024
Patient states he has no nausea or vomiting. He is hungry and thirsty. He has bowel function. He has been out of bed.
Objective Data
-
Vital Signs
Temp Pulse Resp BP Pulse Ox
98.0 F 68 17 116/59 96
04/05/24 11:02 04/05/24 11:02 04/05/24 11:02 04/05/24 11:02 04/05/24 11:02
Intake & Output
04/04/24 04/05/24 04/06/24
06:59 06:59 06:59
Intake Total 2440 / 2440 3190 / 3190
Output Total 1745 / 1745 1300 / 1300
Balance 695 / 695 1890 / 1890
Intake:
Oral fluids 240 / 240
IV fluids (Total) 2000 / 1999 1750 / 1750
IV piggybacks 200 / 200 200 / 200
Amount instilled into GI Tube ( 240 / 240
Total)
[place] Sump 240 / 240
Blood products 500 / 500
Blood Product Amount Infused ( 500 / 500
mL)
Packed Rbc Leukoreduced Unit 250 / 250
[id number]
Packed Rbc Leukoreduced Unit 250 / 250
[id number]
Output:
Liquid stool amount 885 / 885 250 / 250
Colostomy 885 / 885 250 / 250
Gastrointestinal tube output ( 460 / 460
Total)
[place] Sump 460 / 460
Urine, Laws 400 / 400
Urine, Voided 1050 / 1050
Other:
Number of approximated SMALL 1
amounts of urine
Lab Results
04/05/24 06:16
04/05/24 06:16
Physical Exam
-
General: No Acute Distress and AOx3
Abdomen: Soft, Non Distended, Non Tender and Other (Colostomy warm and pink, edematous, with function)
Skin: Warm and Dry
Incision: Clear, Dry, Intact
[2024-04-05] MEDS: LR IV ×2 (12:08→16:45)
[2024-04-05] MEDS: DILAUDID 1 MG IV (14:08)
[2024-04-05 14:40] VITALS: BP 134/73; PULSE 72
[2024-04-05 15:18] VITALS: BP 130/68
[2024-04-05 17:17] LABS: CEA 49.2 ng/ml
--- NOTE | 2024-04-05 17:37 | CM ---
Patient seen at bedside with physicians this am. Patient requested referral to [facility] and referral sent via all scripts pending response. CM will continue to follow for discharge planning needs.
Plan; home with VN vs SNF; pending response
[2024-04-05 23:34] VITALS: BP 127/78
[2024-04-06 06:00] VITALS: BMI 33.5
[2024-04-06 06:59] LABS: % Basophils 0.2 % (0-2); % Eosinophils 2.6 % (0-6); % Lymphocytes 17.3 % (20.5-51.1); % Monocytes 6.5 % (1.7-9.3); % Neutrophils 72.4 % (42.2-75.2); Absolute Eosinophils 0.2 10^3/uL (0-0.7); Absolute Immature Granulocytes 0.1 10^3/uL (0-0.05); Absolute Lymphocytes 1.5 10^3/uL (1.2-3.4); Absolute Monocytes 0.6 10^3/uL (0.1-0.6); Absolute Neutrophils 6.4 10^3/uL (1.4-6.5); Hematocrit 26.5 % (39.0-52.0); Hemoglobin 8.2 g/dL (13.0-18.0); Mean Corp Hgb Conc. 30.9 g/dL (33.0-37.0); Mean Corpuscular Hgb 23.1 pg (27.0-31.0); Mean Corpuscular Volume 74.6 fL (80.0-94.0); Nucleated Red Blood Cells % 0 % (-); Platelet Count 414 10^3/uL (130-400); Red Blood Cell Count 3.55 10^6/uL (4.70-6.10); Red Cell Dist. Width 17.7 % (11.5-14.5); White Blood Cell Count 8.9 10^3/uL (4.8-10.8)
--- NOTE | 2024-04-06 07:05 | W.PN.HOSP.TC ---
Addendum entered and electronically signed by Theresa Bishop MD 04/06/24 13:13:
I saw and evaluated the patient independently. I reviewed the resident�s note and agree with findings and plan as documented by Dr. Ramírez.
GENERAL: well developed, well nourished, male in no apparent distress
HEENT:NC/AT
HEART: regular rate and rhythm, +S1, +S2
LUNGS : clear to auscultation bilaterally
ABDOM: soft, nontender, nondistended, + bowel sounds, +ostomy with stool present
EXT: no cyanosis, clubbing, or edema
NEUROLOGIC: grossly intact
Acute abdominal pain secondary to perforated sigmoid mass--highly suspect malignancy as cause, CEA elevated at 49 but path pending--postop day 4 for exploratory laparotomy, sigmoidectomy with small bowel resection, drainage of abdominal abscess,
resection of abdominal wall tumor, biopsy of liver mass and creation of end colostomy--tolerating clears, advanced to solid food--continue antibiotic coverage with Zosyn for total of 4 days (today last day)--will eventually need hematology/oncology
if malignancy found--CT chest pending---WBC count improved
Anemia--last normal hemoglobin was 14.6 in 2017--unclear what baseline is--would not be surprised if this is acute blood loss anemia from surgery and postop IV fluid dilution on anemia of chronic disease from likely malignancy (MCV low, platelet
count high)--admission hemoglobin was 9.5, down to 6.7, s/p 2 units packed red blood cells and now 8.2
Hyponatremia--mild only, lowest was 132--today 137--possibly paraneoplastic from presumed malignancy
hypokalemia--replete
DVT proph
code status -- FULL CODE
Original Note:
Today's Communication/Plan
-
Advance diet as tolerated
Stop Zosyn
Follow anaerobic culture of the wound
Assessment / Plan
Assessment / Plan
IMPRESSION
63 yo male presenting with large and small bowel obstruction secondary to large perforated sigmoid mass associated with abscess and invasion into 2 loops of small bowel, along with a liver mass
Mother had a history of colon cancer at the age of 53, patient never had a screening colonoscopy done
POD #4Exploratory laparotomy, sigmoidectomy with en bloc small bowel resection x 2, drainage of abdominal abscess, resection of abdominal wall tumor, biopsy of liver mass, abdominal washout, tap block, creation of end colostomy
ASSESSMENT/PLAN
Anemia most likely secondary to blood loss from surgery/dilutional/Malignancy
Hgb 8.5 after transfusion of 2 packs of RBCs-04/04/2024
Hgb 04/05/2024-7.9, patient's hemoglobin remained stable and is 8.2 on 04/06/2024
Continue to trend H/H
LEUKOCYTOSIS
Patient had a TLC count of 21.3 on the day of admission on Thursday, April 02, 2024
TLC is trending down, April 04, 2024 is 13.7,04/05/2024-11, 04/06/2024 8.9
Patient is on zosyn since 04/03/2024, today is day 4 of Zosyn, plan is to stop Zosyn today
Continue to monitor TLC count,trending down
# Acute abdominal pain sec to perforated sigmoid mass
-CT abdomen pelvis 04/02/2024
Shows segment wall thickening within the mid sigmoid colon extensive adjacent phlegmonous change/developing abscess and focal free air extending superiorly from the sigmoid colon into the adjacent mesentery with associated colonic obstruction with
dilation of the ascending transverse and descending colon
Status post emergent exploratory laparotomy
Procedure - Exploratory laparotomy, sigmoidectomy with en bloc small bowel resection x 2, drainage of abdominal abscess, resection of abdominal wall tumor, biopsy of liver mass, abdominal washout, tap block, creation of end +ostomy function +voiding
Pain meds as needed
Carcinoembryonic antigen 49.2
Gram stain of the wound showed no growth in 72 hours
Follow anaerobic culture of abdominal wound
Plan is to do eventual CT scan of abdomen/pelvis to do staging of the disease
Hyponatremia
Currently stable, continue to monitor
DIET
Patient put on regular diet today
Patient complained of cough with mucus this morning, a chest CT was done, report pending
I will Zosyn to be discontinued tomorrow
Pain control with Tylenol and Dilaudid
PT OT evaluation done on April 03, 2024
Recommended acute rehab for postacute care, reason for recommendation medical complexity and physical limitations
Sarcoidosis
Full code
DVT prophylaxis�SCDs
Anticipated Discharge: 24 - 48 hours
Subjective/Interval History
-
Date of Service: April 06, 2024
Patient complains of mild cough with yellowish white scant sputum and abdominal pain on changing positions but otherwise feels well
Objective Data
-
Labs:
Laboratory Results
04/06/24
05:49
WBC 8.9
Hgb 8.2 L
Hct 26.5 L
Plt Count 414 H
Sodium Pending
Potassium Pending
Chloride Pending
Carbon Dioxide Pending
BUN Pending
Creatinine Pending
Glucose Pending
Calcium Pending
Total Bilirubin Pending
AST Pending
ALT Pending
Alkaline Phosphatase Pending
Vital Signs:
Vital Signs
Temp Pulse Resp BP Pulse Ox
97.4 F 65 14 127/78 94
04/05/24 23:34 04/05/24 23:34 04/05/24 23:34 04/05/24 23:34 04/05/24 23:34
I&O
04/05/24 04/06/24 04/07/24
06:59 06:59 06:59
Intake Total 3190 / 3190 795 / 795
Output Total 1300 / 1300 1300 / 1300
Balance 1890 / 1890 -505 / -505
Review of Systems
-
All other systems: Reviewed and negative
Physical Exam
-
General: Well Developed, Well Nourished, No Apparent Distress and Comfortable
HEENT: Normocephalic and Atraumatic
Respiratory: Clear to Auscultation and Other (No wheezes rhonchi or rales)
Cardiac: Regular Rhythm and S1/S2
GI: Soft, Nontender, Normal Bowel Sounds and Distended (Mildly distended)
Musculoskeletal: No Clubbing, No Cyanosis and No Edema
Skin: Warm and Dry
Neuro: Awake, Oriented and No Motor Deficits
Psych: Calm and Other ( cooperative)
[2024-04-06 07:22] VITALS: BP 153/76
[2024-04-06 07:24] LABS: ALT (SGPT) 12 U/L (0-50); AST (SGOT) 17 U/L (17-59); Albumin 2.2 g/dl (3.5-5.0); Alkaline Phosphatase 62 U/L (38-126); Blood Urea Nitrogen 9 mg/dl (9-20); Calcium 7.7 mg/dl (8.4-10.2); Carbon Dioxide 30 mmol/L (22-30); Chloride 100 mmol/L (98-107); Estimated Creatinine Clearance > 125 ml/min; Glucose 88 mg/dl (70-99); Magnesium 2.3 mg/dl (1.6-2.3); Potassium 3.2 mmol/L (3.5-5.1); Sodium 134 mmol/L (135-145); Total Bilirubin 0.3 mg/dl (0.2-1.3); Total Protein 4.6 g/dl (6.3-8.2); eGFR > 60.00
[2024-04-06] MEDS: PROTONIX IV 40 MG IV (08:35)
[2024-04-06] MEDS: NSS (PRESERVATIVE FREE) 10 ML IV (08:36)
--- NOTE | 2024-04-06 08:48 | W.PN.CRS1 ---
Today's Communication / Plan
-
� As below
Assessment/Plan
-
63-year-old male with PMH of sarcoidosis, bilateral THR surgery who presents with several weeks of diarrhea, associated with increase in abdominal pain over the last 2 to 3 weeks, associated with increase in bloating over the last week; has had 20
pound weight loss in the last 5 weeks, never had a colonoscopy; family history of colon cancer in mother; WBC 21.3, CT showing large bowel obstruction with cecum of 10 cm, transition point of mid sigmoid mass associated with localized perforation,
as well as 6 cm liver lesion
POD 4 open sigmoidectomy with en bloc small bowel resection x2, liver biopsy, TAP block, end-colostomy
AFVSS
WBC 8.9 from 11.3, hemoglobin 8.2 from 7.9, creatinine 0.7
� Large bowel obstruction due to sigmoid mass with invasion into the anterior abdominal wall and small bowel
�Follow-up path; most likely colon cancer
�Will need CT chest
- CEA 49.2
� Advance to regular diet
� Continue pain control with Tylenol and Dilaudid as needed
� Hemoglobin stable, okay for DVT PPx with Lovenox
� OOB/IS, appreciate PT
�IV Zosyn x 4 days total
� Appreciate hospitalist
Subjective Data
Procedure
04/02/24 Exploratory laparotomy, sigmoidectomy with en bloc small bowel resection x 2, drainage of abdominal abscess, resection of abdominal wall tumor, biopsy of liver mass, abdominal washout, tap block, creation of end colostomy
Subjective Data
Date of Service: April 06, 2024
No overnight events.
Pain controlled, but still bothers him with coughing.
Denies nausea/vomiting. Tolerating diet.
+ostomy function +voiding
Objective Data
-
Vital Signs
Temp Pulse Resp BP Pulse Ox
97.5 F 57 14 153/76 97
04/06/24 07:22 04/06/24 07:22 04/06/24 07:22 04/06/24 07:22 04/06/24 07:22
Intake & Output
04/05/24 04/06/24 04/07/24
06:59 06:59 06:59
Intake Total 3190 / 3190 795 / 795
Output Total 1300 / 1300 1300 / 1300
Balance 1890 / 1890 -505 / -505
Intake:
Oral fluids 240 / 240 720 / 720
IV fluids (Total) 1750 / 1750 25 / 25
IV piggybacks 200 / 200 50 / 50
Blood products 500 / 500
Blood Product Amount Infused ( 500 / 500
mL)
Packed Rbc Leukoreduced Unit 250 / 250
[id number]
Packed Rbc Leukoreduced Unit 250 / 250
[id number]
Output:
Liquid stool amount 250 / 250 600 / 600
Colostomy 250 / 250 600 / 600
Urine, Voided 1050 / 1050 700 / 700
Other:
Number of approximated SMALL 1
amounts of urine
Number of approximated MODERATE 1
amounts of urine
Number of unmeasured liquid
stools
Colostomy 2
Lab Results
04/06/24 05:49
04/06/24 05:49
Physical Exam
-
General: No Acute Distress and AOx3
HEENT: Grossly Normal
Abdomen: Soft, Non Distended, Non Tender and Other (Ostomy pink and edematous, productive of stool)
Skin: Warm and Dry
Wound: No Signs of Infection, No Skin Erythema and Other (Midline incision with intermittent gaps with Telfa jc, clean, no purulent drainage)
[2024-04-06] MEDS: ZOSYN 50 IV ×3 (11:12→21:20)
[2024-04-06] MEDS: KCL 40 MEQ PO (13:14)
--- NOTE | 2024-04-06 14:27 | CM ---
Patient requested referral to [facility] and CM sent referral via all scripts as well as [facility]. CM will continue to follow for discharge planning needs.
Plan; SNF vs [facility] pending acceptance.
[2024-04-06 15:02] VITALS: BP 151/98
[2024-04-06 15:31] VITALS: BP 151/98; PULSE 86; O2SAT 97
[2024-04-06] MEDS: LOVENOX 40 MG SC (17:43)
[2024-04-06] MEDS: ROXICODONE 5 MG PO (22:41)
[2024-04-06 23:00] VITALS: BP 135/64
[2024-04-07] MEDS: ZOSYN 50 IV ×2 (03:21→09:57)
[2024-04-07 04:18] VITALS: BMI 33.4
--- NOTE | 2024-04-07 06:55 | W.PN.HOSP.TC ---
Addendum entered and electronically signed by Theresa Bishop MD 04/07/24 13:26:
I saw and evaluated the patient independently. I reviewed the resident�s note and agree with findings and plan as documented by Dr. Ramírez.
GENERAL: well developed, well nourished, male in no apparent distress
HEENT:NC/AT
HEART: regular rate and rhythm, +S1, +S2
LUNGS : clear to auscultation bilaterally
ABDOM: soft, nontender, nondistended, + bowel sounds, +ostomy with stool present
EXT: no cyanosis, clubbing, or edema
NEUROLOGIC: grossly intact
Acute abdominal pain secondary to perforated sigmoid mass--highly suspect malignancy as cause, CEA elevated at 49 but path pending--postop day 5 for exploratory laparotomy, sigmoidectomy with small bowel resection, drainage of abdominal abscess,
resection of abdominal wall tumor, biopsy of liver mass and creation of end colostomy--tolerating solid food--continue antibiotic coverage with Zosyn for total of 4 days (finished)--will eventually need hematology/oncology if malignancy found--CT
chest shows hepatic mets, no lung mets--WBC count improved
Anemia--last normal hemoglobin was 14.6 in 2017--unclear what baseline is--would not be surprised if this is acute blood loss anemia from surgery and postop IV fluid dilution on anemia of chronic disease from likely malignancy (MCV low, platelet
count high)--admission hemoglobin was 9.5, down to 6.7, s/p 2 units packed red blood cells-- watch HGB
Hyponatremia--mild only, lowest was 132--today 137--possibly paraneoplastic from presumed malignancy
hypokalemia--replete
DVT proph
code status -- FULL CODE
await consult from Dr. Box--therapy recommending acute rehab....
Original Note:
Today's Communication/Plan
-
Replete potassium
hold zosyn
Consult PMR more likely a snf candidate
Assessment / Plan
Assessment / Plan
IMPRESSION
63 yo male presenting with large and small bowel obstruction secondary to large perforated sigmoid mass associated with abscess and invasion into 2 loops of small bowel, along with a liver mass
Mother had a history of colon cancer at the age of 53, patient never had a screening colonoscopy done
POD #4Exploratory laparotomy, sigmoidectomy with en bloc small bowel resection x 2, drainage of abdominal abscess, resection of abdominal wall tumor, biopsy of liver mass, abdominal washout, tap block, creation of end colostomy
ASSESSMENT/PLAN
Anemia most likely secondary to blood loss from surgery/dilutional/Malignancy
Hgb 8.5 after transfusion of 2 packs of RBCs-04/04/2024
Hgb 04/05/2024-7.9, patient's hemoglobin remained stable and is 8.2 on 04/06/2024
Continue to trend H/H
LEUKOCYTOSIS
Patient had a TLC count of 21.3 on the day of admission on Thursday, April 02, 2024
TLC is trending down, April 04, 2024 is 13.7,04/05/2024-11, 04/06/2024 8.9
Patient is on zosyn since 04/03/2024, today is day 4 of Zosyn, plan is to stop Zosyn today
Continue to monitor TLC count,trending down
# Acute abdominal pain sec to perforated sigmoid mass
-CT abdomen pelvis 04/02/2024
Shows segment wall thickening within the mid sigmoid colon extensive adjacent phlegmonous change/developing abscess and focal free air extending superiorly from the sigmoid colon into the adjacent mesentery with associated colonic obstruction with
dilation of the ascending transverse and descending colon
Status post emergent exploratory laparotomy
Procedure - Exploratory laparotomy, sigmoidectomy with en bloc small bowel resection x 2, drainage of abdominal abscess, resection of abdominal wall tumor, biopsy of liver mass, abdominal washout, tap block, creation of end +ostomy function +voiding
Pain meds as needed
Carcinoembryonic antigen 49.2
Gram stain of the wound showed no growth in 72 hours
Anaerobic culture of wound showed no anaerobic isolates
Blood culture showed no growth in the last [address] chest 04/06/2024
IMPRESSION:
1). There is no evidence of pulmonary metastasis.
2).There are low-density hepatic lesions consistent with hepatic metastasis including a 6 cm lesion at the dome of the right lobe of the liver
3). There are small bilateral pleural effusions with associated compressive atelectasis of the posterior lung bases.
4). There is ascites around the right lobe of the liver
Eventual CT scan of abdomen to stage the disease
Hyponatremia
Currently stable, continue to monitor
Hypokalemia
Replaced 40 mEq of potassium on 04/06/2024
Follow fresh potassium and manage accordingly
DIET
Patient put on regular diet
Patient complained of cough with mucus this morning, a chest CT was done, no evidence of infective changes
Advised the patient to do incentive spirometry,
chest physiotherapy
Discontinue Zosyn
Pain control with Tylenol and Dilaudid
PT OT evaluation done on April 03, 2024
Recommended acute rehab for postacute care, reason for recommendation medical complexity and physical limitations
PMR consultation requested
Sarcoidosis
Full code
DVT prophylaxis�SCDs
Anticipated Discharge: 24 - 48 hours
Subjective/Interval History
-
Date of Service: April 07, 2024
No activation
Objective Data
-
Labs:
Laboratory Results
04/07/24
06:12
WBC Pending
Hgb Pending
Hct Pending
Plt Count Pending
Sodium Pending
Potassium Pending
Chloride Pending
Carbon Dioxide Pending
BUN Pending
Creatinine Pending
Glucose Pending
Calcium Pending
Vital Signs:
Vital Signs
Temp Pulse Resp BP Pulse Ox
97.3 F 74 20 135/64 96
04/06/24 23:00 04/06/24 23:00 04/06/24 23:00 04/06/24 23:00 04/06/24 23:00
I&O
04/05/24 04/06/24 04/07/24
06:59 06:59 06:59
Intake Total 3190 / 3190 795 / 795 1580 / 1580
Output Total 1300 / 1300 1300 / 1300 1200 / 1200
Balance 1890 / 1890 -505 / -505 380 / 380
Review of Systems
-
All other systems: Reviewed and negative
Physical Exam
-
General: Well Developed, Well Nourished and No Apparent Distress
HEENT: Normocephalic and Atraumatic
Respiratory: Clear to Auscultation
Cardiac: Regular Rhythm and S1/S2
GI: Soft, Nontender, Nondistended, Normal Bowel Sounds and Other (+ostomy,+stool output)
Musculoskeletal: No Clubbing, No Cyanosis and No Edema
Skin: Warm and Dry
Neuro: Awake, Alert and Nonfocal/Grossly Intact
Psych: Calm and Other (Cooperative)
[2024-04-07 06:57] LABS: % Basophils 0.4 % (0-2); % Eosinophils 3.5 % (0-6); % Immature Granulocytes 0.9 % (0-0.5); % Lymphocytes 20.4 % (20.5-51.1); % Neutrophils 65.8 % (42.2-75.2); Absolute Eosinophils 0.4 10^3/uL (0-0.7); Absolute Immature Granulocytes 0.1 10^3/uL (0-0.05); Absolute Lymphocytes 2.1 10^3/uL (1.2-3.4); Absolute Monocytes 0.9 10^3/uL (0.1-0.6); Absolute Neutrophils 6.7 10^3/uL (1.4-6.5); Hematocrit 24.7 % (39.0-52.0); Hemoglobin 7.9 g/dL (13.0-18.0); Mean Corpuscular Hgb 23.4 pg (27.0-31.0); Mean Corpuscular Volume 73.1 fL (80.0-94.0); Mean Platelet Volume 8.9 fL (7.4-10.4); Nucleated Red Blood Cells % 0 % (-); Platelet Count 403 10^3/uL (130-400); Red Blood Cell Count 3.38 10^6/uL (4.70-6.10); Red Cell Dist. Width 18.1 % (11.5-14.5); White Blood Cell Count 10.1 10^3/uL (4.8-10.8)
[2024-04-07 07:18] LABS: Blood Urea Nitrogen 7 mg/dl (9-20); Calcium 7.5 mg/dl (8.4-10.2); Carbon Dioxide 29 mmol/L (22-30); Chloride 101 mmol/L (98-107); Estimated Creatinine Clearance 115 ml/min; Glucose 100 mg/dl (70-99); Magnesium 2.1 mg/dl (1.6-2.3); Potassium 3.2 mmol/L (3.5-5.1); Sodium 134 mmol/L (135-145); eGFR > 60.00
[2024-04-07 07:30] VITALS: BP 130/80
[2024-04-07] MEDS: KCL 40 MEQ PO ×2 (08:04→13:53)
[2024-04-07] MEDS: NSS (PRESERVATIVE FREE) 10 ML IV (08:04)
[2024-04-07] MEDS: PROTONIX IV 40 MG IV (08:05)
[2024-04-07] MEDS: FLUSH (NSS) 2 FLUSH IV ×2 (08:05→09:58)
--- NOTE | 2024-04-07 09:39 | W.PN.CRS1 ---
Today's Communication / Plan
-
Okay for discharge from our perspective
Pathology still pending
Follow-up in 2 weeks
Follow-up with oncology
Assessment/Plan
-
63-year-old male with PMH of sarcoidosis, bilateral THR surgery who presents with several weeks of diarrhea, associated with increase in abdominal pain over the last 2 to 3 weeks, associated with increase in bloating over the last week; has had 20
pound weight loss in the last 5 weeks, never had a colonoscopy; family history of colon cancer in mother; WBC 21.3, CT showing large bowel obstruction with cecum of 10 cm, transition point of mid sigmoid mass associated with localized perforation,
as well as 6 cm liver lesion
POD 5 open sigmoidectomy with en bloc small bowel resection x2, liver biopsy, TAP block, end-colostomy
AFVSS
WBC 10.1, hemoglobin 7.9
� Large bowel obstruction due to sigmoid mass with invasion into the anterior abdominal wall and small bowel
�Follow-up path; most likely colon cancer, still pending
�Will need CT chest
- CEA 49.2
�Continue regular diet
� Continue pain control with Tylenol and Dilaudid as needed
� Hemoglobin stable, okay for DVT PPx with Lovenox
� OOB/IS, appreciate PT
�IV Zosyn x 4 days total, last dose at 10 AM
� Appreciate hospitalist
-Okay for discharge when medically cleared. He will be going to an acute rehab. Will need follow-up with oncology and in the office with Dr. Churchill in 2 weeks. I updated his sister, Mar, by phone.
Subjective Data
Procedure
04/02/24 Exploratory laparotomy, sigmoidectomy with en bloc small bowel resection x 2, drainage of abdominal abscess, resection of abdominal wall tumor, biopsy of liver mass, abdominal washout, tap block, creation of end colostomy
Subjective Data
Date of Service: April 07, 2024
Patient states he feels well. He has been getting out of bed. He has no nausea or vomiting. His pain is controlled.
Objective Data
-
Vital Signs
Temp Pulse Resp BP Pulse Ox
97.8 F 74 16 130/80 96
04/07/24 07:30 04/07/24 07:30 04/07/24 07:30 04/07/24 07:30 04/07/24 07:30
Intake & Output
04/06/24 04/07/24 04/08/24
06:59 06:59 06:59
Intake Total 795 / 795 1580 / 1580
Output Total 1300 / 1300 1200 / 1200
Balance -505 / -505 380 / 380
Intake:
Oral fluids 720 / 720 1480 / 1480
IV fluids (Total) 25 / 25
IV piggybacks 50 / 50 100 / 100
Output:
Liquid stool amount 600 / 600 400 / 400
Colostomy 600 / 600 400 / 400
Urine, Voided 700 / 700 800 / 800
Other:
Number of approximated MODERATE 1
amounts of urine
Number of approximated LARGE 1
amounts of urine
Number of unmeasured liquid
stools
Colostomy 2
Lab Results
04/07/24 06:12
04/07/24 06:12
Physical Exam
-
General: No Acute Distress and AOx3
Abdomen: Soft, Non Distended, Non Tender and Other (Colostomy warm and pink with function)
Wound: Dressing Changed (Karlee removed)
--- NOTE | 2024-04-07 10:25 | WOUNDNOTE ---
[facility] RN NOTE: Patient for possible discharge to SNF today. Patient will need ongoing teaching and support for ostomy management. Ostomy is intact, no drainage or leaking from appliance noted. Midline incision dressing C/D/I. Spoke to RNTita and no
problems reported. Ostomy supplies at bedside and discharge instructions updated. Will update CM.
--- NOTE | 2024-04-07 12:09 | PN.CDI ---
CDI
- -
CDI:
Physician Documentation Request
Admit Date: 04/02/24 14:10
Dear Cristel Castro,
Patient found to have perforated sigmoid mass with associated abscess
04/02 Patient underwent Exploratory laparotomy, sigmoidectomy with en bloc small bowel resection x 2, drainage of abdominal abscess, resection of abdominal wall tumor, biopsy of liver mass, abdominal washout, tap block, creation of end colostomy.
Operative findings included 'Murky ascites. mid sigmoid mass densely adherent to lower anterior abdominal wall associated with an abscess containing thick green material ....'
Please provide further specificity to perforated sigmoid mass with abscess.
Peritonitis was present
Peritonitis was not present
other
Use of terms such as suspected, likely, concern for, or probable (associated with a specific diagnosis that is being evaluated, monitored, or treated as if it exists) are acceptable and can be coded in the inpatient setting, when documented at the
time of discharge.
Thank you,
Camilla Marks RN, BSN
CDI Specialist
tiger text
Please use your independent medical judgment in providing your response.
[2024-04-07 13:11] VITALS: BP 131/84; PULSE 77; O2SAT 98
--- NOTE | 2024-04-07 14:43 | CM ---
Chart reviewed
Seen by Dr Box today -recs OT eval
OT eval pending
Spoke with [facility] regarding bed availability - will check bed status and return call
Will need auth
Plan - acute vs SNF when medically stable
[2024-04-07 15:46] VITALS: BP 127/70
[2024-04-07 16:15] VITALS: BP 135/83; PULSE 75; O2SAT 98
[2024-04-07] MEDS: LOVENOX 40 MG SC (18:11)
--- NOTE | 2024-04-07 22:10 | CON.MD ---
Consultation - Medical
-
Referring Provider:�Theresa Bishop
Chief Complaint:�Debility after colon surgery and colostomy
�
History of Present Illness:�63-year-old male with PMH (sarcoidosis) presented to [facility] on 04/02/2024 with a 3-week history abdominal pain, distention, bloating, 20 pound weight loss over the last 3 to 4 months unintentionally. He also
had 1 episode of bright red blood per rectum as well as loose stools leading up to a 3-day history of constipation. Found to have a colonic obstruction with dilatation, mid sigmoid colon segment wall thickening with extensive adjacent concern for
abscess and focal free air extending from the sigmoid colon. On 04/02 he had an ex lap with sigmoidectomy, small bowel resection x 2, drainage of abscess, resection of abdominal wall tumor and biopsy of liver mass with abdominal washout and
creation of end colostomy. Noted with postoperative anemia requiring 2 units of PRBCs. Given a course of Zosyn. Mild hyponatremia possibly paraneoplastic. He will be advanced to regular diet.
�
Past Medical History:�Sarcoidosis
Procedure History:�Bilateral hip replacement
Family History:� Mother colon cancer at age 53 requiring colon resection
�
Social History:�
Functional Level Premorbidly:�Independent with all activities�
Functional Level Currently:�Supervision for grooming upper extremity self-care. Max assist lower extremity self-care. Min assist toilet transfer and bed mobility. Able to ambulate 75 feet x 3 with min assist.
�
Tobacco:�Denies�
Alcohol:�Occasionally
Drug use:�Denies�
�
Lives with:�Alone
24-hour assistance available:�No
Number of floors:�1
# steps to enter:�4
Driving:�Yes
Occupation:�Not working
��
Allergies:�
Allergy/AdvReac Type Severity Reaction Status Date / Time
No Known Allergies Allergy Verified 04/02/24 09:13
�
Review of Systems:�
Constitutional: (x) abNormal _recent weight loss
Eye: (x) Normal _
Ear/Nose/Throat: (x) Normal _
Respiratory: (x) Normal _
Cardiovascular: (x) Normal _
Gastrointestinal: (x) abNormal _likely colon cancer with ex lap and with ostomy, mild/moderate abdominal pain
Genitourinary: (x) Normal _
Musculoskeletal: (x) Normal _
Integumentary: (x) abNormal _abdominal surgeries with ostomy
Neurologic: (x) Normal _
Psychiatric: (x) Normal _
Endocrine: (x) Normal _
Hematologic/Lymphatic: (x) abNormal _low blood counts
Allergic/Immunologic: (x) Normal _
�
Medications:�
Active Current Visit Medication List
Category Date Time Status
0.9% Sodium Chloride [Nss (Preservative Free)] Med 04/03/24 11:00 Active
10 ml IV DAILY
Enoxaparin Sodium [Lovenox] Med 04/06/24 18:00 Active
40 mg SC QPM
Flush (0.9% Sodium Chloride) [Flush (Nss)] Med 04/02/24 16:00 Active
See Dose Instructions IV PER PROTOCOL
HYDROmorphone [Dilaudid] Med 04/06/24 08:44 Active
0.5 mg IV Q3HPRN PRN
Ondansetron Injectable [Zofran] Med 04/02/24 14:58 Active
4 mg IV Q6HPRN PRN
Oxycodone [Roxicodone] Med 04/06/24 08:43 Active
10 mg PO Q4HPRN PRN
Oxycodone [Roxicodone] Med 04/06/24 08:43 Active
5 mg PO Q4HPRN PRN
Pantoprazole [Protonix IV] Med 04/03/24 11:00 Active
40 mg IV DAILY
�
Vitals:�
Temp Pulse Resp BP Pulse Ox
98 F 75 18 127/70 96
04/07/24 15:46 04/07/24 15:46 04/07/24 15:46 04/07/24 15:46 04/07/24 15:46
Height 5 ft 11 in
Actual Weight 108.681 kg
Body Mass Index (BMI) 33.4
�
Physical Exam:�
General Appearance/Observation: Well-developed, well-nourished male in no apparent distress.�
Pain/Comfort Assessment: Mild to moderate abdominal pain
Mood/Affect: Appropriate�
�
Integumentary/Operative Site:�Ostomy intact with healthy bowel
�
Eyes: Conjunctiva/Lids: normal���� Pupils: pupils equal round and reactive to light and Accommodation�
Ears/Nose/Throat: oral mucosa moist,� throat clear.������������ Lips/Teeth/Gums: normal�
Cardiovascular: Heart: regular, no murmur�
Pulses: dorsalis pedis 2+ bilaterally�
Respiratory: Respiratory Effort/Chest Expansion: normal������� Auscultation: Clear to auscultation bilaterally�
Gastrointestinal: abdomen mildly tender, no distension, normal abdominal bowel sounds, colostomy intact and functioning
Genitourinary: No Laws�
Extremities:�Edema: None�Cyanosis: None�Trophic�changes: None
�
Neurology Exam:
Orientation: Alert, Oriented to self, Time, Place�
Memory: Intact
Comprehension: Intact
Two step command: Intact
Cranial Nerves:
�� CNII:�Pupillary light reflex: Intact����
�� CN III, IV, : Extraocular muscles: Intact�
�� CN V:�Facial Sensation�at�Forehead: Intact,�Maxilla: Intact,�Mandible: Intact
�� CN VII:�Facial movement: Symmetric
�� CN VIII:�Hearing: Normal
�� CN IX/X:�Speech & swallow: Normal,�Position of Uvula: Midline
�� CN XI:�Shoulder shrug: Symmetric
�� CN XII:�Tongue protrusion: Midline
Sensory:
�� Light touch: Intact in bilateral upper and lower extremities
Reflexes:
�� Biceps: 2+ bilaterally
�� Brachioradialis: 2+ bilaterally
�� Triceps: 2+ bilaterally
�� Patellar: 2+ bilaterally
�� Achilles: 2+ bilaterally
�� Babinski: Down going bilaterally
�� Clonus: None
�� Andrzej: Negative bilaterally�
Cerebellar: Dysmetria/Ataxia: None�
Musculoskeletal: Motor: (Manual muscle scale 0-5)�
Muscle SA EF WE EE FF FA HF KE DF EHL PF
Right� 5 5 5 5 5 4 5 5 5
Left 4+ 5 5 5 5 4 5 5 5
�
Tone: Normal in all extremities�
Range of Motion: Passively within normal limits in all extremities�
�
Lab Results
Laboratory Data
04/07/24 06:12
04/07/24 06:12
Total Bilirubin 0.3 mg/dl (0.2-1.3) 04/06/24 05:49
AST 17 U/L (17-59) 04/06/24 05:49
ALT 12 U/L (0-50) 04/06/24 05:49
Alkaline Phosphatase 62 U/L (38-126) 04/06/24 05:49
Total Protein 4.6 g/dl (6.3-8.2) L 04/06/24 05:49
Albumin 2.2 g/dl (3.5-5.0) L 04/06/24 05:49
�
Diagnostic Results:�as per HPI�
PROCEDURES: CT Abd/Pel (IV only)-DH only
CLINICAL INDICATION: abd distention/bloating
IMPRESSION:
There is a segment wall thickening within the mid sigmoid colon with extensive adjacent phlegmonous change/developing abscess and focal free air which extends superiorly from the sigmoid colon into the adjacent mesentery. There is associated colonic
obstruction with dilation of the ascending, transverse and descending colon. Findings likely represent focally perforated sigmoid malignancy, less likely focally perforated sigmoid diverticulitis with adjacent developing abscess/phlegmonous change.
There is a heterogeneous lesion measuring approximate 6.0 cm within the hepatic dome which is most suspicious for metastasis, less likely hepatic abscess.
Assessment
63-year-old M PMH (sarcoidosis) 04/02/2024 colonic obstruction with dilatation, mid sigmoid colon segment wall thickening with extensive adjacent concern for abscess and focal free air extending from the sigmoid colon s/p 04/02 ex lap with
sigmoidectomy, small bowel resection x 2, drainage of abscess, resection of abdominal wall tumor and biopsy of liver mass with abdominal washout and creation of end colostomy with anemia, hyponatremia and hypokalemia resulting in ADL and ambulatory
dysfunction.
�
Plan�
PM&R�PT/OT to increase independence with ADLs, improve balance, coordination, endurance, strength, mobility, community reintegration, decreased burden of care on others and family education.�
�
Likely colon cancer status post resection with abscess drainage and colostomy: Monitor incision, monitor ostomy output.� Completed a course of Zosyn. Pain control with oxycodone.
-Further outpatient evaluation with oncology for treatment plan
-Has liver lesion with concern for metastasis
Postoperative anemia: Status post 2 units PRBCs, monitor and transfuse as necessary.
Psych: Psychology consult when available.� Monitor mood, medications as needed.�
Skin: monitor for pressure sores/rashes/lesions.�
Pain: acetaminophen or oxycodone as needed.�
Bowel: Ostomy education, monitor output.�
Bladder: Time void, PVRs, PRN straight cath.� Notes voiding without any concerns currently.
GI Prophylaxis: Pantoprazole�
FEN:
�Hyponatremia: Monitor thought secondary to malignancy
�Hypokalemia: Replace and monitor. Magnesium normal.
DVT Prophylaxis: Mechanical and Lovenox.�
Pulmonary: Incentive spirometry�
Obesity: Continue to gambling counsellor patient about diet adjustments to control obesity. Body habitus and increased force to move body and extremities causes further difficulty with functional tasks.�
Safety: Continue to reinforce assistance with all transfers.�
Code Status:� Full code
Dispo�(date/plan/equipment needs): Home with family care.� Social history reviewed.�
Functional and Medical Goals:�Modified Independent with ADL�s, ambulation, transfers�
Discharge Destination:�Acute inpatient rehabilitation
A total of 60 minutes were spent with the patient preparing for the evaluation, obtaining history, performing examination and evaluation, counseling, data review, case management, care coordination, border guard, and EMR documentation.
�
Summary of recommendations:
-�Discharge Destination:�Acute inpatient rehabilitation�
Likely colon cancer status post resection with abscess drainage and colostomy: Monitor incision, monitor ostomy output.� Completed a course of Zosyn. Pain control with oxycodone.
-Further outpatient evaluation with oncology for treatment plan
Hyponatremia: Monitor thought secondary to malignancy
Hypokalemia: Replace and monitor. Magnesium normal.�
Postoperative anemia: Status post 2 units PRBCs, monitor and transfuse as necessary.
Thank you for allowing me to care for your patient. Please contact me with any questions or concerns.
[2024-04-07 23:46] VITALS: BP 134/81
[2024-04-08 06:00] VITALS: BMI 34.2
--- NOTE | 2024-04-08 06:45 | W.PN.HOSP.TC ---
Addendum entered and electronically signed by Emanuel Ulloa MD 04/08/24 17:24:
Seen and examined by me independently in collaboration with the nuclear medicine medical director.
Lab data and imaging data reviewed.
Addendum as below :
Afebrile and hemodynamically stable. Saturating well on room air.
Tolerating diet. Abdomen benign. Minor bleeding from lower incision site history noted, no evidence of erythema or induration. tiny bit Old blood noted, no active bleeding,linda intact. Continue with wound care.
Await pathology report.
Medically stable for discharge to acute rehab. Appreciate physiatry input.
Original Note:
Today's Communication/Plan
-
Follow fresh labs
Add on Iron studies
Look for discharge disposition facility
Assessment / Plan
Assessment / Plan
IMPRESSION
63 yo male presenting with large and small bowel obstruction secondary to large perforated sigmoid mass associated with abscess and invasion into 2 loops of small bowel, along with a liver mass
Mother had a history of colon cancer at the age of 53, patient never had a screening colonoscopy done
POD #5Exploratory laparotomy, sigmoidectomy with en bloc small bowel resection x 2, drainage of abdominal abscess, resection of abdominal wall tumor, biopsy of liver mass, abdominal washout, tap block, creation of end colostomy
ASSESSMENT/PLAN
Anemia most likely secondary to blood loss from surgery/dilutional/Malignancy
Hgb 8.5 after transfusion of 2 packs of RBCs-04/04/2024
Hgb patient's hemoglobin remained stable 04/05/2024-7.9, 8.2 on 04/06/2024, 7.9 on 04/07/2024
Continue to trend H/H
LEUKOCYTOSIS
Patient had a TLC count of 21.3 on the day of admission on Thursday, April 02, 2024
TLC is trending down, April 04, 2024 is 13.7,04/05/2024-11, 04/06/2024 8.9,12/19/224-10.1
Resolved
#1. Acute abdominal pain sec to perforated sigmoid mass
04/02/2024 3-week history abdominal pain, distention, bloating, 20 pound weight loss over the last 3 to 4 months unintentionally
-CT abdomen pelvis 04/02/2024
Shows segment wall thickening within the mid sigmoid colon extensive adjacent phlegmonous change/developing abscess and focal free air extending superiorly from the sigmoid colon into the adjacent mesentery with associated colonic obstruction with
dilation of the ascending transverse and descending colon
Status post emergent exploratory laparotomy 04/02/2024
POD#6
Procedure - Exploratory laparotomy, sigmoidectomy with en bloc small bowel resection x 2, drainage of abdominal abscess, resection of abdominal wall tumor, biopsy of liver mass, abdominal washout, tap block, creation of end colostomy
Eating regular diet
Continue to work wit PT to improve functional status
+ostomy function +voiding
Pain meds as needed
Carcinoembryonic antigen 49.2
Gram stain of the wound showed no growth in 72 hours
Anaerobic culture of wound showed no anaerobic isolates
Blood culture showed no growth in the last 72 hours
Biopsy still pending
To Follow up with oncology for treatment options after staging of disease process
CT chest 04/06/2024
IMPRESSION:
1). There is no evidence of pulmonary metastasis.
2).There are low-density hepatic lesions consistent with hepatic metastasis including a 6 cm lesion at the dome of the right lobe of the liver
3). There are small bilateral pleural effusions with associated compressive atelectasis of the posterior lung bases.
4). There is ascites around the right lobe of the liver
Eventual CT scan of abdomen to stage the disease
Hyponatremia
Currently stable, continue to monitor(04/07/2024-134)
Hypokalemia
Follow fresh potassium and manage accordingly(last on 04/07/2024)-3.2
DIET
Patient put on regular diet
Patient complained of cough with mucus this morning, a chest CT was done, no evidence of infective changes
Advised the patient to do incentive spirometry,
chest physiotherapy
PT OT evaluation done on April 03, 2024
Recommended acute rehab for postacute care, reason for recommendation medical complexity and physical limitations
PMR consultation appreciated-�Discharge Destination:�Acute inpatient rehabilitation�
Sarcoidosis
Full code
DVT prophylaxis�SCDs
Anticipated Discharge: 24 - 48 hours
Subjective/Interval History
-
Date of Service: April 08, 2024
Mild cough and mild to moderate abdominal pain with movement from bed to chair
Had an episode of bleed from incision
Objective Data
-
Vital Signs:
Vital Signs
Temp Pulse Resp BP Pulse Ox
97.4 F 69 18 134/81 97
04/07/24 23:46 04/07/24 23:46 04/07/24 23:46 04/07/24 23:46 04/08/24 01:23
I&O
04/06/24 04/07/24 04/08/24
06:59 06:59 06:59
Intake Total 795 / 795 1580 / 1580 1760 / 1760
Output Total 1300 / 1300 1200 / 1200 3175 / 3175
Balance -505 / -505 380 / 380 -1415 / -1415
Review of Systems
-
All other systems: Reviewed and negative
Physical Exam
-
General: Well Developed, Well Nourished and No Apparent Distress
HEENT: Normocephalic, Atraumatic and Moist Mucous Membranes
Respiratory: Clear to Auscultation
Cardiac: Regular Rhythm and S1/S2
GI: Soft, Normal Bowel Sounds, Tender (mild), Ostomy (+ ostomy with +stool output) and Other (Incision looks ok without any active bleed)
Musculoskeletal: No Clubbing, No Cyanosis and No Edema
Skin: Warm and Dry
Neuro: Awake, Oriented and No Motor Deficits
Psych: Calm
[2024-04-08 07:20] VITALS: BP 141/84
[2024-04-08 09:06] LABS: % Basophils 0.3 % (0-2); % Eosinophils 2.6 % (0-6); % Lymphocytes 17.6 % (20.5-51.1); % Neutrophils 70.5 % (42.2-75.2); Absolute Eosinophils 0.3 10^3/uL (0-0.7); Absolute Immature Granulocytes 0.1 10^3/uL (0-0.05); Absolute Lymphocytes 1.7 10^3/uL (1.2-3.4); Absolute Monocytes 0.8 10^3/uL (0.1-0.6); Absolute Neutrophils 6.8 10^3/uL (1.4-6.5); Hematocrit 26.2 % (39.0-52.0); Hemoglobin 8.1 g/dL (13.0-18.0); Mean Corp Hgb Conc. 30.9 g/dL (33.0-37.0); Mean Corpuscular Hgb 23.3 pg (27.0-31.0); Mean Corpuscular Volume 75.3 fL (80.0-94.0); Mean Platelet Volume 8.9 fL (7.4-10.4); Nucleated Red Blood Cells % 0 % (-); Platelet Count 432 10^3/uL (130-400); Red Blood Cell Count 3.48 10^6/uL (4.70-6.10); Red Cell Dist. Width 18.7 % (11.5-14.5); White Blood Cell Count 9.7 10^3/uL (4.8-10.8)
[2024-04-08 09:10] LABS: Blood Urea Nitrogen 5 mg/dl (9-20); Calcium 7.9 mg/dl (8.4-10.2); Carbon Dioxide 29 mmol/L (22-30); Chloride 102 mmol/L (98-107); Estimated Creatinine Clearance > 125 ml/min; Glucose 90 mg/dl (70-99); Magnesium 2.1 mg/dl (1.6-2.3); Potassium 3.8 mmol/L (3.5-5.1); Sodium 135 mmol/L (135-145); eGFR > 60.00
[2024-04-08] MEDS: PROTONIX 40 MG PO (09:18)
--- NOTE | 2024-04-08 12:38 | PN.CDI ---
CDI
- -
CDI:
Physician Documentation Request
Admit Date: 04/02/24 14:10
Dear Zhao,
Patient found to have perforated sigmoid mass with associated abscess
04/02 Patient underwent Exploratory laparotomy, sigmoidectomy with en bloc small bowel resection x 2, drainage of abdominal abscess, resection of abdominal wall tumor, biopsy of liver mass, abdominal washout, tap block, creation of end colostomy.
Operative findings included 'Murky ascites. mid sigmoid mass densely adherent to lower anterior abdominal wall associated with an abscess containing thick green material ....'
Please provide further specificity to perforated sigmoid mass with abscess.
Peritonitis was present
Peritonitis was not present
other
Use of terms such as suspected, likely, concern for, or probable (associated with a specific diagnosis that is being evaluated, monitored, or treated as if it exists) are acceptable and can be coded in the inpatient setting, when documented at the
time of discharge.
Thank you,
Camilla Marks RN, BSN
CDI Specialist
tiger text
Please use your independent medical judgment in providing your response.
--- NOTE | 2024-04-08 13:07 | WOUNDNOTE ---
WOC RN note: Patient sitting in chair. Sacrum blanchable mild red an intact. Patient stood with walker for sacral skin check. Skin on heels blanchable mild red and intact. Instructed patient pressure injury prevention measures. He has an air chair
cushion. Ostomy supplies in room. Colostomy teaching folder given. Instructed patient colostomy pouch emptying and changing using Desiree wafer # [id number], stoma paste and [place] pouch # [id number]. Instructed use of Rose seal if needed instead of
stoma paste. Patient was able to open and close pouch. Patient gave this fiction and nonfiction prose writer permission to order a Desiree ostomy secure starter kit. Next appliance change due by Thursday. Stoma pink, budded, 2 1/4 inches diameter. Peristomal skin intact.
--- NOTE | 2024-04-08 13:32 | CM ---
Addendum entered by Nicci Calvo 04/08/24 14:47:
patient requested CM call his sister; Mar, . CM answered all questions.
Original Note:
CM spoke with Matt, Dr. oBx indicated that patient would be appropriate for [facility], Per Greta CM should start auth. CM spoke with Jacqueline and sending clinical information to [phone]. Per Harry location of [facility] is out of
network, CM requested [facility] location as it is in network. CM awaiting response. Patient also interested in [facility] if SNF if unable to get into [facility]. CM will continue to follow for discharge planning needs.
Plan; SNF vs Acute rehab pending auth
[2024-04-08 13:36] LABS: Iron 25 ug/dl (49-181)
[2024-04-08 13:46] LABS: Percent Saturation 10 % (20-50); Total Iron Binding Capacity 239 ug/dl (261-462)
[2024-04-08 14:22] VITALS: BP 144/77; PULSE 79
[2024-04-08] MEDS: FEOSOL 325 MG PO (14:30)
[2024-04-08 14:56] VITALS: BP 157/87
[2024-04-08 15:15] LABS: Ferritin 15.5 ng/ml (17.9-464.0)
[2024-04-08] MEDS: LOVENOX 40 MG SC (16:35)
[2024-04-08 23:41] VITALS: BP 139/78
[2024-04-09 05:33] LABS: % Basophils 0.2 % (0-2); % Eosinophils 3.2 % (0-6); % Immature Granulocytes 0.9 % (0-0.5); % Lymphocytes 20.2 % (20.5-51.1); % Monocytes 8.5 % (1.7-9.3); Absolute Eosinophils 0.3 10^3/uL (0-0.7); Absolute Immature Granulocytes 0.1 10^3/uL (0-0.05); Absolute Lymphocytes 1.9 10^3/uL (1.2-3.4); Absolute Monocytes 0.8 10^3/uL (0.1-0.6); Absolute Neutrophils 6.4 10^3/uL (1.4-6.5); Hematocrit 25.2 % (39.0-52.0); Mean Corp Hgb Conc. 31.7 g/dL (33.0-37.0); Mean Corpuscular Hgb 23.3 pg (27.0-31.0); Mean Corpuscular Volume 73.5 fL (80.0-94.0); Mean Platelet Volume 9.3 fL (7.4-10.4); Nucleated Red Blood Cells % 0 % (-); Platelet Count 430 10^3/uL (130-400); Red Blood Cell Count 3.43 10^6/uL (4.70-6.10); Red Cell Dist. Width 19.2 % (11.5-14.5); White Blood Cell Count 9.5 10^3/uL (4.8-10.8)
[2024-04-09 05:58] LABS: Blood Urea Nitrogen 7 mg/dl (9-20); Carbon Dioxide 26 mmol/L (22-30); Chloride 103 mmol/L (98-107); Estimated Creatinine Clearance > 125 ml/min; Glucose 88 mg/dl (70-99); Magnesium 2.1 mg/dl (1.6-2.3); Potassium 3.8 mmol/L (3.5-5.1); Sodium 135 mmol/L (135-145); eGFR > 60.00
[2024-04-09 06:00] VITALS: BMI 34.0
[2024-04-09 07:25] VITALS: BP 155/87
[2024-04-09] MEDS: PROTONIX 40 MG PO (08:42)
[2024-04-09] MEDS: FEOSOL 325 MG PO (08:42)
--- NOTE | 2024-04-09 10:41 | W.PN.HOSP.TC ---
Today's Communication/Plan
-
Ongoing dispo efforts
Continue current treatment
Assessment / Plan
Assessment / Plan
IMPRESSION
63 yo male presenting with large and small bowel obstruction secondary to large perforated sigmoid mass associated with abscess and invasion into 2 loops of small bowel, along with a liver mass
Mother had a history of colon cancer at the age of 53, patient never had a screening colonoscopy done
POD #5Exploratory laparotomy, sigmoidectomy with en bloc small bowel resection x 2, drainage of abdominal abscess, resection of abdominal wall tumor, biopsy of liver mass, abdominal washout, tap block, creation of end colostomy
ASSESSMENT/PLAN
Anemia most likely secondary to blood loss from surgery/dilutional/Malignancy
Hgb 8.5 after transfusion of 2 packs of RBCs-04/04/2024
Hgb patient's hemoglobin remained stable 04/05/2024-7.9, 8.2 on 04/06/2024, 7.9 on 04/07/2024
Continue to trend H/H
LEUKOCYTOSIS
Patient had a TLC count of 21.3 on the day of admission on Thursday, April 02, 2024
TLC is trending down, April 04, 2024 is 13.7,04/05/2024-11, 04/06/2024 8.9,-10.1
Resolved
#1. Acute abdominal pain sec to perforated sigmoid mass
04/02/2024 3-week history abdominal pain, distention, bloating, 20 pound weight loss over the last 3 to 4 months unintentionally
-CT abdomen pelvis 04/02/2024
Shows segment wall thickening within the mid sigmoid colon extensive adjacent phlegmonous change/developing abscess and focal free air extending superiorly from the sigmoid colon into the adjacent mesentery with associated colonic obstruction with
dilation of the ascending transverse and descending colon
Status post emergent exploratory laparotomy 04/02/2024
POD#6
Procedure - Exploratory laparotomy, sigmoidectomy with en bloc small bowel resection x 2, drainage of abdominal abscess, resection of abdominal wall tumor, biopsy of liver mass, abdominal washout, tap block, creation of end colostomy
Eating regular diet
Continue to work wit PT to improve functional status
+ostomy function +voiding
Pain meds as needed
Carcinoembryonic antigen 49.2
Gram stain of the wound showed no growth in 72 hours
Anaerobic culture of wound showed no anaerobic isolates
Blood culture showed no growth in the last 72 hours
Biopsy still pending
To Follow up with oncology for treatment options after staging of disease process
CT chest 04/06/2024
IMPRESSION:
1). There is no evidence of pulmonary metastasis.
2).There are low-density hepatic lesions consistent with hepatic metastasis including a 6 cm lesion at the dome of the right lobe of the liver
3). There are small bilateral pleural effusions with associated compressive atelectasis of the posterior lung bases.
4). There is ascites around the right lobe of the liver
Eventual CT scan of abdomen to stage the disease
DIET
Patient put on regular diet
PT OT evaluation done on April 03, 2024
Recommended acute rehab for postacute care, reason for recommendation medical complexity and physical limitations
PMR consultation appreciated-�Discharge Destination:�Acute inpatient rehabilitation�
Sarcoidosis
Full code
DVT prophylaxis�SCDs
\\DW CM today -ongoing dispo efforts
Anticipated Discharge: > 48 hours
Subjective/Interval History
-
Date of Service: April 09, 2024
No further bleeding from surgical wound
Tolerating diet
Objective Data
-
Labs:
Laboratory Results
04/09/24
04:57
WBC 9.5
Hgb 8.0 L
Hct 25.2 L
Plt Count 430 H
Sodium 135
Potassium 3.8
Chloride 103
Carbon Dioxide 26
BUN 7 L
Creatinine 0.7
Glucose 88
Calcium 8.0 L
Vital Signs:
Vital Signs
Temp Pulse Resp BP Pulse Ox
98.5 F 78 18 155/87 97
04/09/24 07:25 04/09/24 07:25 04/09/24 07:25 04/09/24 07:25 04/09/24 07:25
I&O
04/08/24 04/09/24 04/10/24
06:59 06:59 06:59
Intake Total 1760 / 1760 1860 / 1860
Output Total 3175 / 3175 3795 / 3795
Balance -1415 / -1415 -5 / -1934
Review of Systems
-
Constitutional: Denies Fever
EENT: Denies Sore Throat
Respiratory: Denies Cough or Trouble Breathing
Cardiac: Denies Chest Pain
Abdomen/GI: Denies Nausea or Vomiting
Neuro: Denies Dizzy
Physical Exam
-
General: No Apparent Distress
Respiratory: Non Labored Respirations; Negative Accessory Resp Muscle Use
Cardiac: Regular Rhythm and S1/S2; Negative Tachycardic
GI: Soft, Ostomy and Other (abdominal wound linda in place and no bleeding)
Neuro: AO x 3
Data Reviewed
-
Labs: Labs Reviewed by me
--- NOTE | 2024-04-09 10:56 | CM ---
Patient seen at bedside, patient aware pending auth from [facility] for [facility] placement. CM spoke with sister and she conveyed that she has concerns about living arrangements at brother's home, she has made arrangements for him to stay with his brother
at discharge. CM will continue to follow for discharge planning needs.
Plan; Acute rehab vs SNF; pending auth confirmation to [facility]
[2024-04-09 15:15] VITALS: BP 138/77
--- NOTE | 2024-04-09 15:56 | CHAP ---
A enterprise solutions architect visit was requested by staff for Mr. Jacinto. He shared a lot about his background, his difficulties and struggles. We talked about what is most important in his life - he does maintain his relationship with God. Emotional and
spiritual support provided, along with assurance of our on-going availability.
[2024-04-09] MEDS: LOVENOX 40 MG SC (17:36)
[2024-04-09 23:44] VITALS: BP 135/84
[2024-04-10 05:15] VITALS: BMI 33.7
[2024-04-10 07:10] VITALS: BP 155/90
[2024-04-10] MEDS: PROTONIX 40 MG PO (09:21)
[2024-04-10] MEDS: FEOSOL 325 MG PO (09:21)
--- NOTE | 2024-04-10 11:00 | W.PN.HOSP.TC ---
Today's Communication/Plan
-
DC planning
Assessment / Plan
Assessment / Plan
IMPRESSION
63 yo male presenting with large and small bowel obstruction secondary to large perforated sigmoid mass associated with abscess and invasion into 2 loops of small bowel, along with a liver mass
Mother had a history of colon cancer at the age of 53, patient never had a screening colonoscopy done
POD #5Exploratory laparotomy, sigmoidectomy with en bloc small bowel resection x 2, drainage of abdominal abscess, resection of abdominal wall tumor, biopsy of liver mass, abdominal washout, tap block, creation of end colostomy
ASSESSMENT/PLAN
Anemia most likely secondary to blood loss from surgery/dilutional/Malignancy
Hgb improved after transfusion of 2 packs of RBCs-04/04/2024
Hgb patient's hemoglobin remained stable
Acute abdominal pain sec to perforated sigmoid mass
04/02/2024 3-week history abdominal pain, distention, bloating, 20 pound weight loss over the last 3 to 4 months unintentionally
-CT abdomen pelvis 04/02/2024
Shows segment wall thickening within the mid sigmoid colon extensive adjacent phlegmonous change/developing abscess and focal free air extending superiorly from the sigmoid colon into the adjacent mesentery with associated colonic obstruction with
dilation of the ascending transverse and descending colon
Status post emergent exploratory laparotomy 04/02/2024
POD#6
Procedure - Exploratory laparotomy, sigmoidectomy with en bloc small bowel resection x 2, drainage of abdominal abscess, resection of abdominal wall tumor, biopsy of liver mass, abdominal washout, tap block, creation of end colostomy
Eating regular diet
Continue to work wit PT to improve functional status
+ostomy function +voiding
Pain meds as needed
Carcinoembryonic antigen 49.2
Gram stain of the wound showed no growth in 72 hours
Anaerobic culture of wound showed no anaerobic isolates
Blood culture showed no growth in the last 72 hours
Biopsy still pending
To Follow up with oncology for treatment options after staging of disease process
CT chest 04/06/2024
IMPRESSION:
1). There is no evidence of pulmonary metastasis.
2).There are low-density hepatic lesions consistent with hepatic metastasis including a 6 cm lesion at the dome of the right lobe of the liver
3). There are small bilateral pleural effusions with associated compressive atelectasis of the posterior lung bases.
4). There is ascites around the right lobe of the liver
Eventual CT scan of abdomen to stage the disease
DIET
Patient put on regular diet
PT OT evaluation done on April 03, 2024
Recommended acute rehab for postacute care, reason for recommendation medical complexity and physical limitations
PMR consultation appreciated-�Discharge Destination:�Acute inpatient rehabilitation�
Sarcoidosis
Full code
DVT prophylaxis�SCDs
\\DW CM today -ongoing dispo efforts
Anticipated Discharge: Within 24 hours
Subjective/Interval History
-
Date of Service: April 10, 2024
Patient without overnight events.
Tolerating diet. Ambulating in the hallways.
Objective Data
-
Vital Signs:
Vital Signs
Temp Pulse Resp BP Pulse Ox
97.6 F 86 16 155/90 96
04/10/24 07:10 04/10/24 07:10 04/10/24 07:10 04/10/24 07:10 04/10/24 07:10
I&O
04/09/24 04/10/24 04/11/24
06:59 06:59 06:59
Intake Total 1860 / 1860 1620 / 1620
Output Total 3795 / 3795 2725 / 2725
Balance -1935 / -1935 -1105 / -5
Review of Systems
-
Constitutional: Denies Fever
Respiratory: Denies Trouble Breathing
Cardiac: Denies Chest Pain
Skin: Denies Itching
Physical Exam
-
General: Comfortable
Respiratory: Non Labored Respirations; Negative Accessory Resp Muscle Use
Cardiac: Regular Rhythm and S1/S2
GI: Soft and Ostomy
Neuro: AO x 3
Psych: Calm
[2024-04-10 14:45] VITALS: BP 130/78; PULSE 85; O2SAT 97
[2024-04-10 15:25] VITALS: BP 149/77
[2024-04-10] MEDS: LOVENOX SC (17:30)
[2024-04-10] MEDS: LOVENOX 40 MG SC (18:00)
--- NOTE | 2024-04-10 18:37 | PTCARENOTE ---
Patient emptied colostomy bag multiple times yesterday and today while this nurse observed. Patient emptied bag and closed on his own. This nurse educated patient on importance of washing hands afterwards.
[2024-04-10 23:10] VITALS: BP 157/82
[2024-04-11 06:00] VITALS: BMI 33.6
[2024-04-11 07:00] VITALS: BP 158/85
[2024-04-11] MEDS: FEOSOL 325 MG PO (09:11)
[2024-04-11] MEDS: PROTONIX 40 MG PO (09:11)
--- NOTE | 2024-04-11 11:27 | W.PN.HOSP.TC ---
Today's Communication/Plan
-
DC planning
Assessment / Plan
Assessment / Plan
IMPRESSION
63 yo male presenting with large and small bowel obstruction secondary to large perforated sigmoid mass associated with abscess and invasion into 2 loops of small bowel, along with a liver mass
Mother had a history of colon cancer at the age of 53, patient never had a screening colonoscopy done
Status post exploratory laparotomy, sigmoidectomy with en bloc small bowel resection x 2, drainage of abdominal abscess, resection of abdominal wall tumor, biopsy of liver mass, abdominal washout, tap block, creation of end colostomy
ASSESSMENT/PLAN
Anemia most likely secondary to blood loss from surgery/dilutional/Malignancy
Hgb improved after transfusion of 2 packs of RBCs-04/04/2024
Hgb patient's hemoglobin remained stable
Acute abdominal pain sec to perforated sigmoid mass
04/02/2024 3-week history abdominal pain, distention, bloating, 20 pound weight loss over the last 3 to 4 months unintentionally
-CT abdomen pelvis 04/02/2024
Shows segment wall thickening within the mid sigmoid colon extensive adjacent phlegmonous change/developing abscess and focal free air extending superiorly from the sigmoid colon into the adjacent mesentery with associated colonic obstruction with
dilation of the ascending transverse and descending colon
Status post emergent exploratory laparotomy 04/02/2024
POD#7
Procedure - Exploratory laparotomy, sigmoidectomy with en bloc small bowel resection x 2, drainage of abdominal abscess, resection of abdominal wall tumor, biopsy of liver mass, abdominal washout, tap block, creation of end colostomy
Eating regular diet
Continue to work wit PT to improve functional status
+ostomy function +voiding
Pain meds as needed
Carcinoembryonic antigen 49.2
Gram stain of the wound showed no growth in 72 hours
Anaerobic culture of wound showed no anaerobic isolates
Blood culture showed no growth in the last 72 hours
Biopsy still pending
To Follow up with oncology for treatment options after staging of disease process
CT chest 04/06/2024
IMPRESSION:
1). There is no evidence of pulmonary metastasis.
2).There are low-density hepatic lesions consistent with hepatic metastasis including a 6 cm lesion at the dome of the right lobe of the liver
3). There are small bilateral pleural effusions with associated compressive atelectasis of the posterior lung bases.
4). There is ascites around the right lobe of the liver
Eventual CT scan of abdomen to stage the disease
DIET
Patient put on regular diet
PT OT evaluation done on April 03, 2024 and reevaluated again yesterday and recommendation still is for SNF
Recommended acute rehab for postacute care, reason for recommendation medical complexity and physical limitations
PMR consultation appreciated-�Discharge Destination:�Acute inpatient rehabilitation�
Sarcoidosis
Full code
DVT prophylaxis�SCDs
\\ ongoing dispo efforts
Medically stable for discharge
Anticipated Discharge: Today
Subjective/Interval History
-
Date of Service: April 11, 2024
No overnight events. Patient walking in the hallways.
Denies any specific complaints.
Tolerating diet.
No shortness of breath or chest pain. No fevers.
Objective Data
-
Vital Signs:
Vital Signs
Temp Pulse Resp BP Pulse Ox
98.1 F 82 18 158/85 96
04/11/24 07:00 04/11/24 07:00 04/11/24 07:00 04/11/24 07:00 04/11/24 07:00
I&O
04/10/24 04/11/24 04/12/24
06:59 06:59 06:59
Intake Total 1620 / 1620 1200 / 1200
Output Total 2725 / 2725 1920 / 1920
Balance -1105 / -1105 -720 / -720
Review of Systems
-
Constitutional: Denies Fever or Chills
EENT: Denies Sore Throat
Respiratory: Denies Cough
Abdomen/GI: Denies Abdominal Pain, Nausea or Vomiting
Neuro: Denies Dizzy
Physical Exam
-
General: No Apparent Distress
HEENT: Moist Mucous Membranes
Respiratory: Clear to Auscultation and Non Labored Respirations; Negative Accessory Resp Muscle Use
Cardiac: Regular Rhythm and S1/S2
GI: Soft, Nontender, Ostomy and Other (Katia clean)
Neuro: AO x 3
--- NOTE | 2024-04-11 11:34 | W.PN.CRS1 ---
Addendum entered and electronically signed by Bi Churchill MD 04/12/24 07:48:
Will follow peripherally; please call for questions/concerns
Original Note:
Today's Communication / Plan
-
-As below
Assessment/Plan
-
63-year-old male with PMH of sarcoidosis, bilateral THR surgery who presents with several weeks of diarrhea, associated with increase in abdominal pain over the last 2 to 3 weeks, associated with increase in bloating over the last week; has had 20
pound weight loss in the last 5 weeks, never had a colonoscopy; family history of colon cancer in mother; WBC 21.3, CT showing large bowel obstruction with cecum of 10 cm, transition point of mid sigmoid mass associated with localized perforation,
as well as 6 cm liver lesion
POD 9 open sigmoidectomy with en bloc small bowel resection x2, liver biopsy, TAP block, end-colostomy
AFVSS
No labs today
� Large bowel obstruction due to sigmoid mass with invasion into the anterior abdominal wall and small bowel
�Follow-up path; most likely colon cancer
�CT chest - no evidence of mets, 6 cm hepatic lesion c/w met
- CEA 49.2
� Continue regular diet
� Continue pain control with Tylenol and Dilaudid as needed
� Cont DVT PPx with Lovenox
� OOB/IS, appreciate PT
� Appreciate hospitalist; okay for DC to rehab from surgical standpoint
Subjective Data
Procedure
04/02/24 Exploratory laparotomy, sigmoidectomy with en bloc small bowel resection x 2, drainage of abdominal abscess, resection of abdominal wall tumor, biopsy of liver mass, abdominal washout, tap block, creation of end colostomy
Subjective Data
Date of Service: April 11, 2024
No overnight events.
Pain well�controlled.
Denies nausea/vomiting. Tolerating diet.
+ostomy function +voiding
Pt is OOB.
Objective Data
-
Vital Signs
Temp Pulse Resp BP Pulse Ox
98.1 F 82 18 158/85 96
04/11/24 07:00 04/11/24 07:00 04/11/24 07:00 04/11/24 07:00 04/11/24 07:00
Intake & Output
04/10/24 04/11/24 04/12/24
06:59 06:59 06:59
Intake Total 1620 / 1620 1200 / 1200
Output Total 2725 / 2725 1920 / 1920
Balance -1105 / -1105 -720 / -720
Intake:
Oral fluids 1620 / 1620 1200 / 1200
Output:
Liquid stool amount 1150 / 1150 450 / 450
Colostomy 1150 / 1150 450 / 450
Urine, Voided 1575 / 1575 1470 / 1470
Lab Results
04/09/24 04:57
04/09/24 04:57
Physical Exam
-
General: No Acute Distress and AOx3
HEENT: Grossly Normal
Abdomen: Soft, Non Distended, Tender (Appropriately tender near midline incision), No Guarding and No Rebound
Wound: No Signs of Infection, No Skin Erythema and Other (Midline incision closed with intermittent linda, no erythema or drainage)
--- NOTE | 2024-04-11 11:56 | CM ---
Addendum entered by Nadia Harvey 04/11/24 15:39:
Auth # [id number]
Denied acute rehab
For P2P call [phone] by [facility] 04/12
Dr Mcclain notified by TT
Reviewer - Ely [phone], ext [phone]
Original Note:
Chart reviewed
[employer] auth pending for acute rehab
Plan - acute rehab pending auth
[2024-04-11 15:00] VITALS: BP 157/88
[2024-04-11] MEDS: LOVENOX 40 MG SC (17:14)
[2024-04-11 23:45] VITALS: BP 143/83
[2024-04-12 06:00] VITALS: BMI 33.4
[2024-04-12 07:00] VITALS: BP 154/76
[2024-04-12] MEDS: FEOSOL 325 MG PO (08:18)
[2024-04-12] MEDS: PROTONIX 40 MG PO (08:18)
--- NOTE | 2024-04-12 09:22 | W.PN.HOSP.TC ---
Today's Communication/Plan
-
DC
Assessment / Plan
Assessment / Plan
IMPRESSION
63 yo male presenting with large and small bowel obstruction secondary to large perforated sigmoid mass associated with abscess and invasion into 2 loops of small bowel, along with a liver mass
Mother had a history of colon cancer at the age of 53, patient never had a screening colonoscopy done
Status post exploratory laparotomy, sigmoidectomy with en bloc small bowel resection x 2, drainage of abdominal abscess, resection of abdominal wall tumor, biopsy of liver mass, abdominal washout, tap block, creation of end colostomy
ASSESSMENT/PLAN
Anemia most likely secondary to blood loss from surgery/dilutional/Malignancy
Hgb improved after transfusion of 2 packs of RBCs-04/04/2024
Hgb patient's hemoglobin remained stable
Acute abdominal pain sec to perforated sigmoid mass
04/02/2024 3-week history abdominal pain, distention, bloating, 20 pound weight loss over the last 3 to 4 months unintentionally
-CT abdomen pelvis 04/02/2024
Shows segment wall thickening within the mid sigmoid colon extensive adjacent phlegmonous change/developing abscess and focal free air extending superiorly from the sigmoid colon into the adjacent mesentery with associated colonic obstruction with
dilation of the ascending transverse and descending colon
Status post emergent exploratory laparotomy 04/02/2024
POD#7
Procedure - Exploratory laparotomy, sigmoidectomy with en bloc small bowel resection x 2, drainage of abdominal abscess, resection of abdominal wall tumor, biopsy of liver mass, abdominal washout, tap block, creation of end colostomy
Eating regular diet
Continue to work wit PT to improve functional status
+ostomy function +voiding
Pain meds as needed
Carcinoembryonic antigen 49.2
Gram stain of the wound showed no growth in 72 hours
Anaerobic culture of wound showed no anaerobic isolates
Blood culture showed no growth in the last 72 hours
Biopsy still pending
To Follow up with oncology for treatment options after staging of disease process
CT chest 04/06/2024
IMPRESSION:
1). There is no evidence of pulmonary metastasis.
2).There are low-density hepatic lesions consistent with hepatic metastasis including a 6 cm lesion at the dome of the right lobe of the liver
3). There are small bilateral pleural effusions with associated compressive atelectasis of the posterior lung bases.
4). There is ascites around the right lobe of the liver
Eventual CT scan of abdomen to stage the disease
DIET
Regular diet -tolerating
PT OT evaluation done on April 03, 2024 and reevaluated again yesterday and recommendation still is for SNF
Recommended acute rehab for postacute care, reason for recommendation medical complexity and physical limitations
PMR consultation appreciated-�Discharge Destination:�Acute inpatient rehabilitation�
Sarcoidosis
Full code
DVT prophylaxis�SCDs
ongoing dispo efforts
Medically stable for discharge
Anticipated Discharge: Today
Subjective/Interval History
-
Date of Service: April 12, 2024
Voices no specific complaints.
Tolerating diet. No abdominal pain.
Denies any shortness of breath or chest pain.
No fever or chills.
Objective Data
-
Vital Signs:
Vital Signs
Temp Pulse Resp BP Pulse Ox
97.5 F 80 18 154/76 97
04/12/24 07:00 04/12/24 07:00 04/12/24 07:00 04/12/24 07:00 04/12/24 07:00
I&O
04/11/24 04/12/24 04/13/24
06:59 06:59 06:59
Intake Total 1200 / 1200 1440 / 1440
Output Total 1919 / 192
Balance -720 / -720 1440 / 1440
Review of Systems
-
Constitutional: Denies Fever
EENT: Denies Sore Throat
Respiratory: Denies Cough
Neuro: Denies Dizzy
Physical Exam
-
General: No Apparent Distress
Respiratory: Non Labored Respirations; Negative Accessory Resp Muscle Use
Cardiac: Regular Rhythm and S1/S2; Negative Tachycardic
GI: Soft and Ostomy
Neuro: AO x 3
Psych: Negative Confused
[2024-04-12 11:27] VITALS: BP 144/79; PULSE 79; O2SAT 98
--- NOTE | 2024-04-12 14:58 | WOUNDNOTE ---
WON RN NOTE: Appliance changed by patient with minimal assist and direction. Stoma pink and budded, 2' round, periwound intact. CM at bedside and aware additional supplies being ordered. Asked nurse Aileen to place in when supplies arrive. Support
and encouragement given to patient.
[2024-04-12 15:00] VITALS: BP 130/78
--- NOTE | 2024-04-12 15:31 | CM ---
Chart reviewed and patient was denied acute rehab, per physician advisor patient does not meet acute rehab criteria, patient is aware, plan is to home to [facility], [facility] [address] [address], per nursing patient did well with teaching
session today for Ostomy care. Plan is to home with visiting nurse options, options reviewed and referral sent to [facility] visiting nurse however due to the holiday they are unable to see patient till Thursday, patient is agreeable to [facility], [facility]
manager document reached out to [facility] and they will see patient on Thursday and will try to schedule patient for Thursday admission, referral sent to [facility].
[facility]
[phone]
[2024-04-12] MEDS: LOVENOX 40 MG SC (17:56)
[2024-04-12] MEDS: ULTRAM 50 MG PO (21:32)
[2024-04-12 23:30] VITALS: BP 148/86
[2024-04-13 06:00] VITALS: BMI 33.8
[2024-04-13 08:15] VITALS: BP 139/80
[2024-04-13] MEDS: PROTONIX 40 MG PO (08:31)
[2024-04-13] MEDS: FEOSOL 325 MG PO (08:31)
--- NOTE | 2024-04-13 11:22 | W.PN.HOSP.TC ---
Today's Communication/Plan
-
DC in a.m. once services are set up at home.
Assessment / Plan
Assessment / Plan
IMPRESSION
63 yo male presenting with large and small bowel obstruction secondary to large perforated sigmoid mass associated with abscess and invasion into 2 loops of small bowel, along with a liver mass
Mother had a history of colon cancer at the age of 53, patient never had a screening colonoscopy done
Status post exploratory laparotomy, sigmoidectomy with en bloc small bowel resection x 2, drainage of abdominal abscess, resection of abdominal wall tumor, biopsy of liver mass, abdominal washout, tap block, creation of end colostomy
ASSESSMENT/PLAN
Anemia most likely secondary to blood loss from surgery/dilutional/Malignancy
Hgb improved after transfusion of 2 packs of RBCs-04/04/2024
Hgb patient's hemoglobin remained stable
Acute abdominal pain sec to perforated sigmoid mass
04/02/2024 3-week history abdominal pain, distention, bloating, 20 pound weight loss over the last 3 to 4 months unintentionally
-CT abdomen pelvis 04/02/2024
Shows segment wall thickening within the mid sigmoid colon extensive adjacent phlegmonous change/developing abscess and focal free air extending superiorly from the sigmoid colon into the adjacent mesentery with associated colonic obstruction with
dilation of the ascending transverse and descending colon
Status post emergent exploratory laparotomy 04/02/2024
POD#7
Procedure - Exploratory laparotomy, sigmoidectomy with en bloc small bowel resection x 2, drainage of abdominal abscess, resection of abdominal wall tumor, biopsy of liver mass, abdominal washout, tap block, creation of end colostomy
Eating regular diet
Continue to work wit PT to improve functional status
+ostomy function +voiding
Pain meds as needed
Carcinoembryonic antigen 49.2
Gram stain of the wound showed no growth in 72 hours
Anaerobic culture of wound showed no anaerobic isolates
Blood culture showed no growth in the last 72 hours
Biopsy still pending
To Follow up with oncology for treatment options after staging of disease process
CT chest 04/06/2024
IMPRESSION:
1). There is no evidence of pulmonary metastasis.
2).There are low-density hepatic lesions consistent with hepatic metastasis including a 6 cm lesion at the dome of the right lobe of the liver
3). There are small bilateral pleural effusions with associated compressive atelectasis of the posterior lung bases.
4). There is ascites around the right lobe of the liver
Eventual CT scan of abdomen to stage the disease
DIET
Regular diet -tolerating
PT OT evaluation done on April 03, 2024 and reevaluated again yesterday and recommendation still is for SNF
Recommended acute rehab for postacute care, reason for recommendation medical complexity and physical limitations
PMR consultation appreciated-�Discharge Destination:�Acute inpatient rehabilitation�
Sarcoidosis
Full code
DVT prophylaxis�SCDs
ongoing dispo efforts. Patient did well with the PT not requiring acute rehab. Going home to the [facility] and case management to arrange outpatient health services.
Medically stable for discharge
Anticipated Discharge: Within 24 hours
Subjective/Interval History
-
Date of Service: April 13, 2024
No overnight events.
Feels good. Tolerating diet. Walking around in the hallways on the floor.
No fever chills.
Denies shortness of breath.
Objective Data
-
Vital Signs:
Vital Signs
Temp Pulse Resp BP Pulse Ox
98.1 F 73 16 139/80 96
04/13/24 08:15 04/13/24 08:15 04/13/24 08:15 04/13/24 08:15 04/13/24 08:15
I&O
04/12/24 04/13/24 04/14/24
06:59 06:59 06:59
Intake Total 1440 / 1440 600 / 1740 1140 / 1140
Balance 1440 / 1440 600 / 1740 1140 / 1140
Physical Exam
-
General: No Apparent Distress
HEENT: Moist Mucous Membranes
Respiratory: Non Labored Respirations; Negative Accessory Resp Muscle Use
Cardiac: Regular Rhythm and S1/S2; Negative Tachycardic
Neuro: AO x 3
[2024-04-13 15:46] VITALS: BP 141/79
[2024-04-13] MEDS: LOVENOX 40 MG SC (17:47)
[2024-04-13 23:45] VITALS: BP 151/88
[2024-04-14 06:00] VITALS: BMI 33.6
[2024-04-14] MEDS: FEOSOL 325 MG PO (08:37)
[2024-04-14] MEDS: PROTONIX 40 MG PO (08:37)
[2024-04-14 09:00] VITALS: BP 155/86
--- NOTE | 2024-04-14 10:44 | W.PN.HOSP.TC ---
Today's Communication/Plan
-
DC
Assessment / Plan
Assessment / Plan
IMPRESSION
63 yo male presenting with large and small bowel obstruction secondary to large perforated sigmoid mass associated with abscess and invasion into 2 loops of small bowel, along with a liver mass
Mother had a history of colon cancer at the age of 53, patient never had a screening colonoscopy done
Status post exploratory laparotomy, sigmoidectomy with en bloc small bowel resection x 2, drainage of abdominal abscess, resection of abdominal wall tumor, biopsy of liver mass, abdominal washout, tap block, creation of end colostomy
ASSESSMENT/PLAN
Anemia most likely secondary to blood loss from surgery/dilutional/Malignancy
Hgb improved after transfusion of 2 packs of RBCs-04/04/2024
Hgb patient's hemoglobin remained stable
Acute abdominal pain sec to perforated sigmoid mass
04/02/2024 3-week history abdominal pain, distention, bloating, 20 pound weight loss over the last 3 to 4 months unintentionally
-CT abdomen pelvis 04/02/2024
Shows segment wall thickening within the mid sigmoid colon extensive adjacent phlegmonous change/developing abscess and focal free air extending superiorly from the sigmoid colon into the adjacent mesentery with associated colonic obstruction with
dilation of the ascending transverse and descending colon
Status post emergent exploratory laparotomy 04/02/2024
Procedure - Exploratory laparotomy, sigmoidectomy with en bloc small bowel resection x 2, drainage of abdominal abscess, resection of abdominal wall tumor, biopsy of liver mass, abdominal washout, tap block, creation of end colostomy
Eating regular diet
Carcinoembryonic antigen 49.2
Biopsy still pending
To Follow up with oncology for treatment options after staging of disease process
CT chest 04/06/2024
IMPRESSION:
1). There is no evidence of pulmonary metastasis.
2).There are low-density hepatic lesions consistent with hepatic metastasis including a 6 cm lesion at the dome of the right lobe of the liver
3). There are small bilateral pleural effusions with associated compressive atelectasis of the posterior lung bases.
4). There is ascites around the right lobe of the liver
Eventual CT scan of abdomen to stage the disease
DIET
Regular diet -tolerating
Sarcoidosis
Full code
DVT prophylaxis�SCDs
ongoing dispo efforts. Patient did well with the PT not requiring acute rehab. Going home to the [facility] and case management to arrange outpatient health services.
Medically stable for discharge
Pt understands the dc follow up plan with [facility] and possibly need of oncology and may be chemotx depending on bx result. Total time of discharge 35-minute
Anticipated Discharge: Today
Subjective/Interval History
-
Date of Service: April 14, 2024
Voices no specific complaints.
No new issues. Await set up of services at home.
Objective Data
-
Vital Signs:
Vital Signs
Temp Pulse Resp BP Pulse Ox
98.0 F 69 18 151/88 98
04/13/24 23:45 04/13/24 23:45 04/13/24 23:45 04/13/24 23:45 04/14/24 01:26
I&O
04/13/24 04/14/24 04/15/24
06:59 06:59 06:59
Intake Total 600 / 1740 2340 / 2340
Balance 600 / 1740 2340 / 2340
Review of Systems
-
Constitutional: Denies Fever
Respiratory: Denies Trouble Breathing
Cardiac: Denies Chest Pain
Abdomen/GI: Denies Abdominal Pain, Nausea or Vomiting
Neuro: Denies Dizzy
Physical Exam
-
General: Comfortable
HEENT: Moist Mucous Membranes
Respiratory: Non Labored Respirations; Negative Accessory Resp Muscle Use
Cardiac: Regular Rhythm and S1/S2; Negative Tachycardic
GI: Soft, Nontender and Ostomy
Neuro: AO x 3
--- NOTE | 2024-04-14 11:27 | CM ---
Pt for discharge today
[facility] will follow for RN/PT/OT
Has ride home with brother
Given IMM
Plan - home with [facility]
[phone]
[2024-04-14] MEDS: FLUAD (65 yr+) 2024-2025 FORMULA 0.5 ML IM (12:44)
--- NOTE | 2024-04-14 13:54 | WOUNDNOTE ---
[facility] RN NOTE: Visited patient prior to discharge. Colostomy appliance changed this morning by RN. At time of assessment, pouch was intact, no drainage or leaking noted. Reviewed care of ostomy with patient and brother including when to empty pouch,
how to order supplies and contact traffic recorder's at [facility]. Patient has supplies for up to 6 pouch changes. Patient states understanding of instructions and stated he feels confident with pouch emptying. Patient will be going to his brothers house while
he recovers. Per notes, patient will have VN services with [facility].
== END 2024-04-14 13:58 | disposition home health service (06) | DRG 329 ==
LOC: 2 SOUTH 14:10
PROVIDERS: Physician Assistant; Registered Nurse; ADMITTING PHYSICIAN Hospitalist; ATTENDING PHYSICIAN Internal Medicine; CONSULT PHYSICIAN Physical Medicine & Rehabilitation; EMERGENCY PHYSICIAN Student in an Organized Health Care Education/Training Program; FAMILY PHYSICIAN Family Medicine; OTHER PHYSICIAN Surgery
PROC: 0DTN0ZZ Resection of Sigmoid Colon, Open Approach (ICD-10-PCS; 2024-04-02)
PROC: 0WBF0ZZ Excision of Abdominal Wall, Open Approach (ICD-10-PCS; 2024-04-02)
PROC: 0D1M0Z4 Bypass Descending Colon to Cutaneous, Open Approach (ICD-10-PCS; 2024-04-02)
PROC: 0W9G0ZZ Drainage of Peritoneal Cavity, Open Approach (ICD-10-PCS; 2024-04-02)
PROC: 0FB00ZX Excision of Liver, Open Approach, Diagnostic (ICD-10-PCS; 2024-04-02)
PROC: 0DB80ZZ Excision of Small Intestine, Open Approach (ICD-10-PCS; 2024-04-02)
PROC: 30233N1 Transfusion of Nonautologous Red Blood Cells into Peripheral Vein, Percutaneous Approach (ICD-10-PCS; 2024-04-04)
PROC: 3E02340 Introduction of Influenza Vaccine into Muscle, Percutaneous Approach (ICD-10-PCS; 2024-04-14)
DX: C18.7 Malignant neoplasm of sigmoid colon (principal); K63.1 Perforation of intestine (nontraumatic); K65.1 Peritoneal abscess; R18.8 Other ascites; E87.1 Hypo-osmolality and hyponatremia; K56.699 Other intestinal obstruction unspecified as to partial versus complete obstruction; D62 Acute posthemorrhagic anemia; E87.6 Hypokalemia; D86.9 Sarcoidosis, unspecified; D63.0 Anemia in neoplastic disease; K76.9 Liver disease, unspecified; R63.4 Abnormal weight loss; Z23 Encounter for immunization; Z68.33 Body mass index [BMI] 33.0-33.9, adult; Z79.899 Other long term (current) drug therapy; Z80.0 Family history of malignant neoplasm of digestive organs
CPT/HCPCS: 88307; 88309; 71260; 74177; 80048; 80053; 82378; 82728; 83540; 83550; 83605; 83690; 83735; 85014; 85018; 85025; 85027; 86850; 86900; 86901; 86920; 87040; 87070; 87075; 87205; 88313; 88342; 90662; 96361; 96365; 97116; 97163; 97166; 97530; 97535; 99291; C1776; G0008; P9016; Q9967

== ENCOUNTER 2024-05-10 06:19 | Day surgery (SDC) | payer OTHER, SELFPAY ==
--- NOTE | 2024-05-09 17:00 | PTCARENOTE ---
Hgb 8.0 collected 04/09, reviewed by Dr Linder, no further intervention required.
[2024-05-10] VITALS (7 sets, daily range): BP systolic 147–180; BP diastolic 66–93; BMI 35.0
[2024-05-10] MEDS: TYLENOL 1000 MG PO (15:42)
[2024-05-10] MEDS: CELEBREX 200 MG PO (15:42)
[2024-05-10] MEDS: NORMOSOL-R/PLASMALYTE-A 1000 IV (15:42)
== END 2024-05-10 19:20 | disposition home or self-care (01) ==
LOC: SDS 06:19
PROVIDERS: ATTENDING PHYSICIAN Surgery
PROC: 0JH63WZ Insertion of Totally Implantable Vascular Access Device into Chest Subcutaneous Tissue and Fascia, Percutaneous Approach (ICD-10-PCS; 2024-05-10)
DX: C18.9 Malignant neoplasm of colon, unspecified (principal)
CPT/HCPCS: 36561; 71045; 76000; C1788

== ENCOUNTER → 2024-05-16 12:33 | Outpatient (REF) | payer OTHER, SELFPAY ==
[2024-05-16 11:50] LABS: % Basophils 0.3 % (0-2); % Eosinophils 2.2 % (0-6); % Immature Granulocytes 0.2 % (0-0.5); % Lymphocytes 20.9 % (20.5-51.1); % Monocytes 7.7 % (1.7-9.3); % Neutrophils 68.7 % (42.2-75.2); Absolute Eosinophils 0.1 10^3/uL (0-0.7); Absolute Lymphocytes 1.2 10^3/uL (1.2-3.4); Absolute Monocytes 0.5 10^3/uL (0.1-0.6); Hematocrit 28.6 % (39.0-52.0); Hemoglobin 8.6 g/dL (13.0-18.0); Mean Corp Hgb Conc. 30.1 g/dL (33.0-37.0); Mean Corpuscular Hgb 23.2 pg (27.0-31.0); Mean Corpuscular Volume 77.3 fL (80.0-94.0); Mean Platelet Volume 9.5 fL (7.4-10.4); Platelet Count 291 10^3/uL (130-400); Red Cell Dist. Width 20.4 % (11.5-14.5); White Blood Cell Count 5.8 10^3/uL (4.8-10.8)
[2024-05-16 12:28] LABS: ALT (SGPT) 11 U/L (0-50); AST (SGOT) 20 U/L (17-59); Albumin 3.9 g/dl (3.5-5.0); Alkaline Phosphatase 73 U/L (38-126); Blood Urea Nitrogen 13 mg/dl (9-20); Calcium 9.1 mg/dl (8.4-10.2); Carbon Dioxide 28 mmol/L (22-30); Chloride 102 mmol/L (98-107); Glucose 95 mg/dl (70-99); Potassium 4.5 mmol/L (3.5-5.1); Sodium 137 mmol/L (135-145); Total Bilirubin 0.3 mg/dl (0.2-1.3); Total Protein 6.4 g/dl (6.3-8.2); eGFR > 60.00
== END ==
LOC: OIDL 12:33
PROVIDERS: ATTENDING PHYSICIAN Internal Medicine Hematology & Oncology
DX: D50.9 Iron deficiency anemia, unspecified (principal); C18.0 Malignant neoplasm of cecum; C78.7 Secondary malignant neoplasm of liver and intrahepatic bile duct
CPT/HCPCS: 80053; 82378; 85025

== ENCOUNTER → 2024-05-19 07:18 | Outpatient (REF) | payer OTHER, SELFPAY ==
--- NOTE | 2024-05-10 17:56 | W.IMMPOSTOP ---
Addendum entered and electronically signed by Bi Churchill MD 05/10/24 18:33:
brother updated via phone
Original Note:
Surgical Immed Post Op Note
-
Primary Surgeon: Bi Churchill MD
Assisting Surgeon: None
Pre-op Diagnosis: Metastatic colon cancer
Post-op Diagnosis: Metastatic colon cancer
Procedure Performed: Right subclavian port insertion
Anesthesia Type: Sedation with local
Specimen / Cultures: None
Estimated Blood Loss: 5 mL
Complications: None
Operative Findings: Per op note
--- NOTE | 2024-05-10 17:57 | OR.RPT ---
Operative Report
Operative Report
DATE OF OPERATION: 05/10/2024
SURGEON: Bi Churchill MD
PREOPERATIVE DIAGNOSIS: Stage 4 colon cancer
POSTOPERATIVE DIAGNOSIS: Stage 4 colon cancer
OPERATION: Right subclavian Mediport insertion
ASSISTANTS:
1. None
ANESTHESIA: MAC w/ local
ESTIMATED BLOOD LOSS: 5 mL
FINDINGS:
1. After placement, the tip of port catheter visualized at level of the cavoatrial junction on fluoroscopy
2. Once sutured in position, port tested with Ortiz needle and there was good withdrawal of blood and instillation of heparinized saline without resistance
SPECIMENS: None
DRAINS: None
COMPLICATIONS: No immediate complications.
INDICATIONS: The patient is a 63-year-old male with stage 4 colon cancer. Infusional chemotherapy was recommended. Therefore, I recommended port placement. The operation was discussed with the patient in detail including risks and benefits. Risks
discussed included, but are not limited to, bleeding, infection, pneumothorax, post-operative malposition or movement of catheter, need for second surgery, DVT/PE, and anesthetic risks. The patient understood and agreed to proceed. The consent was
signed and placed in the chart.
PROCEDURE: Patient was taken to the operating room and placed on the operating table in supine position. Sequential compression devices were placed bilaterally. Sedation was commenced without complication. Bilateral arms were tucked and the head
was tilted toward the left. The right neck and chest wall area were shaved, prepped and draped in a sterile fashion. A time-out was then performed verifying the correct patient, procedure, operative site, positioning, and special equipment.
The patient was placed in Trendelenburg position. Local anesthetic consisting of 1% lidocaine with epinephrine was used to numb the skin and soft tissue near the angle of the right clavicle. Using bony landmarks as a guide, I passed the needle with
10mL syringe under the right clavicle in the direction of the sternal notch while simultaneously aspirating. On the first pass, good venous return was noted indicating that I had accessed the right subclavian vein. Under fluoroscopic guidance, a
guidewire was passed through the needle into the patient down to the superior vena cava. This went smoothly.
The needle was removed over the guidewire and a skin opening was enlarged with an 11 blade scalpel. Next, I advanced the dilator and peel-away sheath together over the guidewire into the patient. This went smoothly as well. Next, the guidewire and
inner dilator were removed leaving the outer sheath in place. I advanced the white tubing through the outer sheath into the patient under fluoroscopic guidance to the superior vena cava near the right atrium. Next, the outer sheath was peeled away
while maintaining the white tubing in place. The location of the catheter tip was confirmed on fluoroscopy.
I injected more 1% lidocaine with epinephrine into the planned subcutaneous port pocket. Using a 15 blade scalpel, I made a 3 cm incision over the chest wall. A subcutaneous pocket was created inferiorly to the incision with a combination of Bovie
electrocautery and blunt dissection. There was good hemostasis. The white tubing was connected to the tunneling device and brought through a newly created tunnel to the pocket area, taking care to avoid kinking of the tube. I confirmed with
fluoroscopy that the tip was still at the cavoatrial junction after this manipulation. The white tubing was trimmed, connected to the the port reservoir and secured with the locking mechanism. The port reservoir was accessed with good venous return
and flushed with heparinized saline. One last round of fluoroscopy was performed. The tip of the white tubing was at the level of the cavoatrial junction and there was no kink in the tubing.
The reservoir was secured to the chest wall with two 3-0 Prolene stitches. The port was accessed once more with the Ortiz needle and heparinized saline. The port withdrew promptly and flushed easily. The subcutaneous layer was closed with deep
dermal interrupted 3-0 Vicryl and the skin was closed with a running subcuticular 4-0 Vicryl. The remaining local was injected around the subcutaneous pocket, port incision and stab incision. Dermabond was used to dress the port incision and stab
incision.
At this point, the procedure was complete. All sponge, needle and instrument counts were correct. The patient tolerated the procedure well and was transferred to the recovery room in stable condition. A portable chest x-ray was ordered in recovery
to confirm port position and rule-out pneumothorax.
DICTATED BY: Bi Churchill MD
== END ==
LOC: MRI 07:18
PROVIDERS: ATTENDING PHYSICIAN Surgery; FAMILY PHYSICIAN Family Medicine; REFERRING PHYSICIAN Internal Medicine Hematology & Oncology
DX: C18.7 Malignant neoplasm of sigmoid colon (principal)
CPT/HCPCS: 74183; 76000; A9585

== ENCOUNTER 2024-06-24 14:31 | Emergency (ER) | payer OTHER, SELFPAY ==
[2024-06-24 14:33] VITALS: BP 214/102
--- NOTE | 2024-06-24 15:17 | ED TECH ---
unable to draw labs in triage.
[2024-06-24 17:03] LABS: % Basophils 0.7 % (0-2); % Eosinophils 2.4 % (0-6); % Immature Granulocytes 0.2 % (0-0.5); % Lymphocytes 28.5 % (20.5-51.1); % Neutrophils 60.2 % (42.2-75.2); Absolute Eosinophils 0.1 10^3/uL (0-0.7); Absolute Lymphocytes 1.2 10^3/uL (1.2-3.4); Absolute Monocytes 0.3 10^3/uL (0.1-0.6); Absolute Neutrophils 2.5 10^3/uL (1.4-6.5); Hematocrit 37.9 % (39.0-52.0); Mean Corp Hgb Conc. 31.7 g/dL (33.0-37.0); Mean Corpuscular Hgb 26.6 pg (27.0-31.0); Mean Platelet Volume 9.5 fL (7.4-10.4); Nucleated Red Blood Cells % 0 % (-); Platelet Count 180 10^3/uL (130-400); Red Blood Cell Count 4.51 10^6/uL (4.70-6.10); Red Cell Dist. Width 21.5 % (11.5-14.5); White Blood Cell Count 4.1 10^3/uL (4.8-10.8)
--- NOTE | 2024-06-24 17:13 | ED.GENMED ---
History of Present Illness
General
Chief Complaint: Blood Pressure Problem
Source: patient
Exam Limitations: none
Time Seen by Provider: 06/24/24 16:43
Nursing documentation reviewed up to this point in time: agreed with
History of Present Illness
History of Present Illness:
This is a 63-year-old male with a past medical history of stage IV colon cancer, sarcoidosis, presents emergency department today with concerns of hypertension. Patient reports that he was at home today sitting on a couch when his visiting nurse
came and took his blood pressure and noticed that his systolic blood pressure was in the 200s. Patient states that he has never had blood pressure this high before. Patient's home nurse advised patient to report to the emergency department.
Patient reports that 3 days ago, he was started on metoprolol for his blood pressure by his oncologist Dr. Ramsey. He was told that the type of chemotherapy he is on right now is known to cause high blood pressure. Patient never had problems
with his blood pressure prior to this. Patient states that today he also started to develop a headache and patient states that he usually does not get headaches. Patient denies any dizziness or lightheadedness, nausea or vomiting, any abdominal
pain, chest pain, shortness of breath, fevers or chills, diarrhea or constipation, visual changes, neck pain.
Past History
Past History
ED Past Medical History: None
ED Past Surgical History: None
Social History
Tobacco: Non-smoker
Alcohol: Occasional
Drug: None
Employment: Employed
Review of Systems
Review of Systems
All Other Systems: ROS reviewed and negative except as documented in HPI and ROS
Phy Exam
Physical Exam
Physical Exam:
General: Patient is well appearing and in no acute distress; non-toxic
Skin: Warm and dry, no rashes or lesions
Head: Normocephalic, atraumatic
Eyes: Sclera non-icteric. EOMs intact. PERRLA.
Cardiac: Regular rate and rhythm, no murmurs
Peripheral Vascular: No lower extremity swelling or edema
Pulm: Normal respiratory effort, no murmurs
Neuro: CN II-XII intact, no focal neurologic deficits. Normal finger to nose.
Psychiatric: Appropriate mood and affect.
Course
Orders/Labs/Results
Orders:
Orders
06/24/24 14:36
Electrocardiogram (*1) Urgent
Reason for Study: Hypertension, Benign
EKG- Treatment ONCE
06/24/24 16:57
CMP [Comprehensive Metabolic Panel] Urgent
Complete Blood Count/With Diff Urgent
06/24/24 17:22
CT Head W/o Iv Contrast Urgent
Comment:
Reason For Exam: frontal headache, HTN
Abnormal Lab Results
06/24/24
16:57
WBC 4.1 L 10^3/uL
(4.8-10.8)
RBC 4.51 L 10^6/uL
(4.70-6.10)
Hgb 12.0 L g/dL
(13.0-18.0)
Hct 37.9 L %
(39.0-52.0)
MCH 26.6 L pg
(27.0-31.0)
MCHC 31.7 L g/dL
(33.0-37.0)
RDW 21.5 H %
(11.5-14.5)
Carbon Dioxide 31 H mmol/L
(22-30)
BUN 21 H mg/dl
(9-20)
Glucose 100 H mg/dl
(70-99)
ALT 80 H U/L
(0-50)
06/24/24 16:57
06/24/24 16:57
Vital Signs
Initial and Last Documented VS:
Initial Vital Signs
Temp Pulse Resp BP Pulse Ox
98.1 F 69 20 214/102 98
06/24/24 14:33 06/24/24 14:33 06/24/24 14:33 06/24/24 14:33 06/24/24 14:33
Last Documented Vital Signs
Temp Pulse Resp BP Pulse Ox
98.1 F 69 20 163/84 98
06/24/24 14:33 06/24/24 14:33 06/24/24 14:33 06/24/24 19:22 06/24/24 14:33
MDM/Problems Addressed
Differential Diagnosis Includes:
ddx include intraparenchymal hemorrhage, brain metastasis, essential hypertension, tension headache
MDM/Problems Addressed:
63-year-old male with past medical history of sarcoidosis, stage IV colon cancer presents emergency department today from home for concerns of high blood pressure and headache. His oncologist started him on metoprolol for blood pressure management
3 days ago. His home nurse visited today and noticed that his blood pressure was systolically in the 200s and sent him to the emergency department. On arrival to emergency department, patient's blood pressure was 214/119. His blood pressure is
since come down without intervention to 163/84. On physical exam he is well-appearing no acute distress he has no focal neurologic deficits. CT scan negative for any acute bleeding or any signs of previous stroke. Patient does have a follow-up
with his oncologist regarding his blood pressure in 7 days. Return precautions discussed. Patient stable for discharge.
*Pulse Oximetry
Patient hypoxic: no
*Critical Care Note
Total Time (30-74mins, 75-104mins- exclusive of procedures): Not Applicable
Data Reviewed
Review of Other/Old Records Reveals: Records (Reviewed discharge summary from 05/19/2024 patient seen for perforated sigmoid colon)
Source: patient
Patient Management
Escalation/DeEscalation of care consider admission/obs:
Case discussed with my attending, patient stable for discharge
ED Attending Note
-
Portions of this chart may have been created with voice recognition software.� Occasional wrong word or��sound alike� substitutions may have occurred due to the inherent limitations of voice recognition software.
Discharge Plan
Departure
Patient Disposition: Home (Routine Discharge)
Date of Disposition: 06/24/24
Time of Disposition: 20:29
Patient with high blood pressure during this ER visit?: Yes
Condition: Good
Discharge Problem:
Hypertension, Headache
Instructions: Tension Headache, BLOOD PRESSURE
Prescriptions:
No Action
coenzyme Q10 [CoQ-10] 100 mg Capsule
300 mg PO DAILY Qty: 0
ferrous sulfate [FeroSul] 325 mg (65 mg iron) Tablet
325 mg PO DAILY Qty: 30 0RF
tramadol 50 mg Tablet
50 mg PO Q6HPRN PRN (Reason: moderate pain) Qty: 20 0RF
fish oil-dha-epa 1,200-144-216 mg Capsule
1 cap PO BID
turmeric root extract 500 mg Capsule
500 mg PO BID
fluticasone propionate 1 SPRAY spray,suspension
1 spray intranasal DAILY PRN (Reason: allergy symptoms)
Patient Comments:
uses occasionally
Referrals:
Alejo England DO [Family Provider] -
Activity Restrictions/Additional Instructions:
Your blood pressure lowered without acute intervention.
Your CT of the head showed no acute abnormalities.
Please follow up with your oncology appointment as scheduled.
PLEASE RETURN TO THE EMERGENCY DEPARTMENT SHOULD YOU DEVELOP CHEST PAIN, SHORTNESS OF BREATH, INTRACTABLE NAUSEA VOMITING, DECREASED ABILITY TO TOLERATE ORAL INTAKE, WEAKNESS IN ONE-SIDED BODY VERSUS THE OTHER, INABILITY TO AMBULATE, OR ANY OTHER
SIGNS OR SYMPTOMS WORRISOME TO YOU.
You can take Tylenol as needed for your headaches.
Interventions
Interventions:
*Risk Screen - Suicide Last Done: 06/24/24 18:09
*General Assessment Last Done: 06/24/24 14:33
*Neglect/Abuse Screening Last Done: 06/24/24 18:09
*ED- Fall Risk Assessment Last Done: 06/24/24 20:47
*Nursing Disposition Last Done: 06/24/24 20:47
ED- Cardiac Assessment Last Done: 06/24/24 18:09
ED- Neurological Assessment Last Done: 06/24/24 18:09
ED- Pulmonary Assessment Last Done: 06/24/24 18:09
Discharge Date and Time
Discharge Date/Time: 06/24/24 20:48
Print Language: TURKMEN
[2024-06-24 17:24] LABS: ALT (SGPT) 80 U/L (0-50); AST (SGOT) 51 U/L (17-59); Albumin 4.5 g/dl (3.5-5.0); Alkaline Phosphatase 66 U/L (38-126); Blood Urea Nitrogen 21 mg/dl (9-20); Calcium 9.4 mg/dl (8.4-10.2); Carbon Dioxide 31 mmol/L (22-30); Chloride 99 mmol/L (98-107); Glucose 100 mg/dl (70-99); Potassium 4.3 mmol/L (3.5-5.1); Sodium 136 mmol/L (135-145); Total Bilirubin 0.8 mg/dl (0.2-1.3); Total Protein 6.9 g/dl (6.3-8.2); eGFR > 60.00
[2024-06-24 18:03] VITALS: BP 163/84
[2024-06-24 19:22] VITALS: BP 163/84
== END 2024-06-24 20:48 | disposition home or self-care (01) ==
LOC: EMR 14:31
PROVIDERS: Student in an Organized Health Care Education/Training Program; EMERGENCY PHYSICIAN Emergency Medicine; FAMILY PHYSICIAN Family Medicine
DX: I10 Essential (primary) hypertension (principal); R51.9 Headache, unspecified; C18.9 Malignant neoplasm of colon, unspecified; D86.9 Sarcoidosis, unspecified; Z79.60 Long term (current) use of unspecified immunomodulators and immunosuppressants
CPT/HCPCS: 99284; 70450; 80053; 85025; 93005

== ENCOUNTER 2024-06-30 15:11 | Emergency (ER) | payer OTHER, SELFPAY ==
[2024-06-30 15:13] VITALS: BP 198/104
[2024-06-30 16:30] VITALS: BMI 37.7
[2024-06-30 19:16] VITALS: BP 180/97
[2024-06-30] MEDS: APRESOLINE 10 MG IV (19:19)
[2024-06-30] MEDS: LOPRESSOR 25 MG PO (19:19)
[2024-06-30] MEDS: NSS 500 IV (19:20)
[2024-06-30 19:39] LABS: Blood Urea Nitrogen 14 mg/dl (9-20); Calcium 9.2 mg/dl (8.4-10.2); Carbon Dioxide 30 mmol/L (22-30); Chloride 101 mmol/L (98-107); Estimated Creatinine Clearance 123 ml/min; Glucose 102 mg/dl (70-99); Potassium 4.2 mmol/L (3.5-5.1); Sodium 138 mmol/L (135-145); eGFR > 60.00
--- NOTE | 2024-06-30 19:59 | ED.GENMED ---
History of Present Illness
General
Chief Complaint: Blood Pressure Problem
Source: patient
Exam Limitations: none
Time Seen by Provider: 06/30/24 16:38
Nursing documentation reviewed up to this point in time: agreed with
History of Present Illness
History of Present Illness:
Patient with history of metastatic liver cancer, currently receiving chemotherapy, started on metoprolol secondary to elevated blood pressure as known side effect from his chemo agent recently, presents to ED after visiting nurse found his blood
pressure to be severely elevated this afternoon, with systolic blood pressure greater than 220. Patient denies chest pain or shortness of breath. Denies nausea or vomiting. Denies dizziness. Patient does report chronic intermittent headache.
Denies loss of sensation or weakness. Denies blurred vision. Patient is currently taking metoprolol 25 mg daily in AM. Patient was evaluated in ED for similar complaint last week. Patient does have a follow-up appointment with his oncologist
tomorrow morning.
Past History
Past History
ED Past Medical History: None
ED Past Surgical History: None
Social History
Tobacco: Non-smoker
Alcohol: Occasional
Drug: None
Employment: Employed
Review of Systems
Review of Systems
Allergies reviewed?: Yes
All Other Systems: ROS reviewed and negative except as documented in HPI and ROS
Constitutional: Reports no symptoms
EENT: Reports no symptoms
Respiratory: Reports no symptoms; Denies trouble breathing
Cardiac: Reports no symptoms; Denies chest pain
ABD/GI: Reports no symptoms
Musculoskeletal: Reports no symptoms
Skin: Reports no symptoms
Neurological: Reports headache; Denies dizzy or weakness
Phy Exam
Physical Exam
Physical Exam:
Physical Exam
General: no apparent distress, not acutely ill. afebrile. hypertensive
Head: nc/at. eomi
Neck: supple. normal range of motion.
Heart: s1/s2 regular rate and rhythm, no murmur.
Lungs: no acute respiratory distress. clear bilaterally
Abdomen: normal bowel sounds. not tender.
Neuro: alert and oriented x 3. no focal neurological deficits
Skin: no rash
Psychiatric: well kept. interactive and cooperative
Extremities: no edema. no calf tenderness.
Course
Orders/Labs/Results
Orders:
Orders
06/30/24 18:55
0.9% Sodium Chloride 500 ml [Nss] 500 ml IV BOLUS
HydrALAZINE [Apresoline] 10 mg IV NOW STA
Metoprolol [Lopressor] 25 mg PO NOW STA
06/30/24 19:16
Basic Metabolic Panel Urgent
Magnesium Urgent
Abnormal Lab Results
06/30/24
19:16
Glucose 102 H mg/dl
(70-99)
06/30/24 19:16
Vital Signs
Initial and Last Documented VS:
Initial Vital Signs
Temp Pulse Resp BP Pulse Ox
98.0 F 66 16 198/104 98
06/30/24 15:13 06/30/24 15:13 06/30/24 15:13 06/30/24 15:13 06/30/24 15:13
Last Documented Vital Signs
Temp Pulse Resp BP Pulse Ox
98.0 F 58 21 171/92 97
06/30/24 15:13 06/30/24 21:15 06/30/24 21:15 06/30/24 21:00 06/30/24 21:15
MDM/Problems Addressed
MDM/Problems Addressed:
Patient remains asymptomatic with improved blood pressure with treatment. Discussed with patient about following up with his oncologist tomorrow morning, to discuss medication adjustment. Patient otherwise is afebrile, hemodynamically stable, and
neurologically intact, at time of discharge.
*Critical Care Note
Total Time (30-74mins, 75-104mins- exclusive of procedures): Not Applicable
ED Attending Note
-
Portions of this chart may have been created with voice recognition software.� Occasional wrong word or��sound alike� substitutions may have occurred due to the inherent limitations of voice recognition software.
Discharge Plan
Departure
Patient Disposition: Home (Routine Discharge)
Date of Disposition: 06/30/24
Time of Disposition: 21:14
Patient with high blood pressure during this ER visit?: Yes
Condition: Good
Discharge Problem:
Hypertension
Instructions: High Blood Pressure (DC)
Prescriptions:
No Action
coenzyme Q10 [CoQ-10] 100 mg Capsule
300 mg PO DAILY Qty: 0
ferrous sulfate [FeroSul] 325 mg (65 mg iron) Tablet
325 mg PO DAILY Qty: 30 0RF
tramadol 50 mg Tablet
50 mg PO Q6HPRN PRN (Reason: moderate pain) Qty: 20 0RF
fish oil-dha-epa 1,200-144-216 mg Capsule
1 cap PO BID
turmeric root extract 500 mg Capsule
500 mg PO BID
fluticasone propionate 1 SPRAY spray,suspension
1 spray intranasal DAILY PRN (Reason: allergy symptoms)
Patient Comments:
uses occasionally
Referrals:
Alejo England DO [Family Provider] -
Activity Restrictions/Additional Instructions:
As discussed, please follow-up with your oncologist tomorrow morning as scheduled, for reevaluation.
Interventions
Interventions:
*Risk Screen - Suicide Last Done: 06/30/24 15:13
*General Assessment Last Done: 06/30/24 19:26
*Neglect/Abuse Screening Last Done: 06/30/24 19:26
*ED- Fall Risk Assessment Last Done: 06/30/24 19:26
*ED COVID-19 Vaccine History Last Done: 06/30/24 19:31
*Nursing Disposition Last Done: 06/30/24 21:32
ED- Cardiac Assessment Last Done: 06/30/24 16:31
ED- Neurological Assessment Last Done: 06/30/24 16:31
ED- Pulmonary Assessment Last Done: 06/30/24 16:31
Discharge Date and Time
Discharge Date/Time: 06/30/24 21:35
Print Language: COMORAN
[2024-06-30 20:00] VITALS: BP 188/85
[2024-06-30 21:00] VITALS: BP 171/92
== END 2024-06-30 21:35 | disposition home or self-care (01) ==
LOC: EMR 15:11
PROVIDERS: EMERGENCY PHYSICIAN Emergency Medicine; FAMILY PHYSICIAN Family Medicine
DX: I10 Essential (primary) hypertension (principal); R51.9 Headache, unspecified; C22.8 Malignant neoplasm of liver, primary, unspecified as to type; C79.9 Secondary malignant neoplasm of unspecified site; Z79.60 Long term (current) use of unspecified immunomodulators and immunosuppressants; Z79.899 Other long term (current) drug therapy
CPT/HCPCS: 96374; 96361; 99284; 80048; 83735

== ENCOUNTER → 2024-07-18 11:40 | Outpatient (REF) | payer OTHER, SELFPAY ==
[2024-07-18 12:03] LABS: % Basophils 0.5 % (0-2); % Eosinophils 3.9 % (0-6); % Lymphocytes 29.2 % (20.5-51.1); % Monocytes 11.2 % (1.7-9.3); % Neutrophils 55.2 % (42.2-75.2); Absolute Eosinophils 0.2 10^3/uL (0-0.7); Absolute Lymphocytes 1.7 10^3/uL (1.2-3.4); Absolute Monocytes 0.6 10^3/uL (0.1-0.6); Absolute Neutrophils 3.1 10^3/uL (1.4-6.5); Hematocrit 42.9 % (39.0-52.0); Hemoglobin 13.8 g/dL (13.0-18.0); Mean Corp Hgb Conc. 32.2 g/dL (33.0-37.0); Mean Corpuscular Hgb 26.8 pg (27.0-31.0); Mean Corpuscular Volume 83.5 fL (80.0-94.0); Mean Platelet Volume 8.7 fL (7.4-10.4); Platelet Count 180 10^3/uL (130-400); Red Blood Cell Count 5.14 10^6/uL (4.70-6.10); Red Cell Dist. Width 20.1 % (11.5-14.5); White Blood Cell Count 5.7 10^3/uL (4.8-10.8)
[2024-07-18 13:33] LABS: ALT (SGPT) 29 U/L (0-50); AST (SGOT) 33 U/L (17-59); Albumin 4.8 g/dl (3.5-5.0); Alkaline Phosphatase 85 U/L (38-126); Blood Urea Nitrogen 19 mg/dl (9-20); Calcium 9.5 mg/dl (8.4-10.2); Carbon Dioxide 22 mmol/L (22-30); Chloride 110 mmol/L (98-107); Glucose 133 mg/dl (70-99); Potassium 4.2 mmol/L (3.5-5.1); Sodium 145 mmol/L (135-145); Total Bilirubin 0.4 mg/dl (0.2-1.3); eGFR > 60.00
[2024-07-18 21:56] LABS: CEA 38.4 ng/ml
== END ==
LOC: OIDL 11:40
PROVIDERS: ATTENDING PHYSICIAN Internal Medicine Hematology & Oncology; FAMILY PHYSICIAN Family Medicine
DX: D50.9 Iron deficiency anemia, unspecified (principal)
CPT/HCPCS: 36415; 80053; 82378; 85025

== ENCOUNTER → 2024-07-29 07:56 | Outpatient (REF) | payer OTHER, SELFPAY | LOC: RCS 07:56 | PROVIDERS: ATTENDING PHYSICIAN Internal Medicine Cardiovascular Disease; FAMILY PHYSICIAN Family Medicine | DX: I10 Essential (primary) hypertension (principal); C18.9 Malignant neoplasm of colon, unspecified | CPT/HCPCS: 93306; 93356 ==

== ENCOUNTER → 2024-08-01 12:10 | Outpatient (REF) | payer OTHER, SELFPAY ==
[2024-08-01 13:34] LABS: % Basophils 0.8 % (0-2); % Eosinophils 1.5 % (0-6); % Immature Granulocytes 0.2 % (0-0.5); % Lymphocytes 24.2 % (20.5-51.1); % Monocytes 13.1 % (1.7-9.3); % Neutrophils 60.2 % (42.2-75.2); Absolute Basophils 0.1 10^3/uL (0-0.2); Absolute Eosinophils 0.1 10^3/uL (0-0.7); Absolute Lymphocytes 1.5 10^3/uL (1.2-3.4); Absolute Monocytes 0.8 10^3/uL (0.1-0.6); Absolute Neutrophils 3.6 10^3/uL (1.4-6.5); Hematocrit 43.3 % (39.0-52.0); Hemoglobin 14.2 g/dL (13.0-18.0); Mean Corp Hgb Conc. 32.8 g/dL (33.0-37.0); Mean Corpuscular Hgb 27.7 pg (27.0-31.0); Mean Corpuscular Volume 84.4 fL (80.0-94.0); Mean Platelet Volume 9.3 fL (7.4-10.4); Nucleated Red Blood Cells % 0 % (-); Platelet Count 186 10^3/uL (130-400); Red Blood Cell Count 5.13 10^6/uL (4.70-6.10); Red Cell Dist. Width 19.6 % (11.5-14.5)
[2024-08-01 15:25] LABS: ALT (SGPT) 38 U/L (0-50); AST (SGOT) 41 U/L (17-59); Alkaline Phosphatase 81 U/L (38-126); Blood Urea Nitrogen 14 mg/dl (9-20); Calcium 9.6 mg/dl (8.4-10.2); Carbon Dioxide 27 mmol/L (22-30); Chloride 102 mmol/L (98-107); Glucose 117 mg/dl (70-99); Potassium 4.6 mmol/L (3.5-5.1); Sodium 143 mmol/L (135-145); Total Bilirubin 0.4 mg/dl (0.2-1.3); Total Protein 7.4 g/dl (6.3-8.2); eGFR > 60.00
[2024-08-01 20:18] LABS: CEA 24.1 ng/ml
[2024-08-03 09:46] LABS: Aldosterone, Serum 13.7 ng/dL; Aldosterone/Renin Activ Ratio 22.8 ratio (<=25.0); Renin Activity Results 0.6 ng/mL/hr
== END ==
LOC: REG 12:10
PROVIDERS: ATTENDING PHYSICIAN Internal Medicine Cardiovascular Disease; FAMILY PHYSICIAN Family Medicine; REFERRING PHYSICIAN Internal Medicine Hematology & Oncology
DX: I10 Essential (primary) hypertension (principal); C18.9 Malignant neoplasm of colon, unspecified; T45.1X5D Adverse effect of antineoplastic and immunosuppressive drugs, subsequent encounter; D50.9 Iron deficiency anemia, unspecified; C18.0 Malignant neoplasm of cecum; C78.7 Secondary malignant neoplasm of liver and intrahepatic bile duct
CPT/HCPCS: 36415; 80053; 82088; 82378; 84244; 85025

== ENCOUNTER → 2024-08-11 13:51 | Outpatient (REF) | payer OTHER, SELFPAY ==
[2024-08-11 14:46] LABS: Hematocrit 46.9 % (39.0-52.0); Hemoglobin 16.5 g/dL (13.0-18.0); Mean Corp Hgb Conc. 35.2 g/dL (33.0-37.0); Mean Corpuscular Hgb 28.3 pg (27.0-31.0); Mean Corpuscular Volume 80.4 fL (80.0-94.0); Mean Platelet Volume 9.4 fL (7.4-10.4); Platelet Count 188 10^3/uL (130-400); Red Blood Cell Count 5.83 10^6/uL (4.70-6.10); Red Cell Dist. Width 18.7 % (11.5-14.5); White Blood Cell Count 6.3 10^3/uL (4.8-10.8)
[2024-08-11 15:01] LABS: Blood Urea Nitrogen 30 mg/dl (9-20); Calcium 8.7 mg/dl (8.4-10.2); Carbon Dioxide 24 mmol/L (22-30); Chloride 103 mmol/L (98-107); Glucose 146 mg/dl (70-99); Potassium 3.3 mmol/L (3.5-5.1); Sodium 136 mmol/L (135-145); eGFR > 60.00
[2024-08-11 15:24] LABS: Absolute Neutrophils -Man Diff 2.5 10^3/uL (1.4-6.5); Atypical Lymphocytes 4 %; Band Neutrophils 0 % (0-3); Lymphocytes 32 % (20-51); Monocytes 24 % (2-9); Normal RBC Morphology Yes; Platelets Checked Yes; Segmented Neutrophils 40 % (42-75); Total Cells Counted 100
== END ==
LOC: OIDL 13:51
PROVIDERS: ATTENDING PHYSICIAN Internal Medicine Hematology & Oncology
DX: D50.9 Iron deficiency anemia, unspecified (principal); C18.0 Malignant neoplasm of cecum; C78.7 Secondary malignant neoplasm of liver and intrahepatic bile duct
CPT/HCPCS: 36415; 80048; 85025; 86850; 86900; 86901

== ENCOUNTER → 2024-08-12 08:22 | Outpatient (REF) | payer OTHER, SELFPAY | LOC: HWRAD 08:22 | PROVIDERS: ATTENDING PHYSICIAN Internal Medicine Cardiovascular Disease; PRIMARYCARE PHYSICIAN Family Medicine | DX: I10 Essential (primary) hypertension (principal); C18.9 Malignant neoplasm of colon, unspecified; T45.1X5D Adverse effect of antineoplastic and immunosuppressive drugs, subsequent encounter | CPT/HCPCS: 93975 ==

== ENCOUNTER → 2024-08-15 09:34 | Outpatient (REF) | payer OTHER, SELFPAY ==
[2024-08-15 10:54] LABS: % Basophils 0.8 % (0-2); % Eosinophils 1.5 % (0-6); % Immature Granulocytes 2.3 % (0-0.5); % Lymphocytes 34.8 % (20.5-51.1); % Monocytes 18.6 % (1.7-9.3); Absolute Basophils 0.1 10^3/uL (0-0.2); Absolute Eosinophils 0.1 10^3/uL (0-0.7); Absolute Immature Granulocytes 0.1 10^3/uL (0-0.05); Absolute Lymphocytes 2.1 10^3/uL (1.2-3.4); Absolute Monocytes 1.1 10^3/uL (0.1-0.6); Absolute Neutrophils 2.6 10^3/uL (1.4-6.5); Hematocrit 41.2 % (39.0-52.0); Hemoglobin 14.3 g/dL (13.0-18.0); Mean Corp Hgb Conc. 34.7 g/dL (33.0-37.0); Mean Corpuscular Hgb 28.4 pg (27.0-31.0); Mean Corpuscular Volume 81.9 fL (80.0-94.0); Mean Platelet Volume 9.4 fL (7.4-10.4); Nucleated Red Blood Cells % 0 % (-); Platelet Count 205 10^3/uL (130-400); Red Blood Cell Count 5.03 10^6/uL (4.70-6.10); Red Cell Dist. Width 17.6 % (11.5-14.5); White Blood Cell Count 6.1 10^3/uL (4.8-10.8)
[2024-08-15 12:31] LABS: ALT (SGPT) 27 U/L (0-50); AST (SGOT) 30 U/L (17-59); Albumin 4.1 g/dl (3.5-5.0); Alkaline Phosphatase 64 U/L (38-126); Blood Urea Nitrogen 9 mg/dl (9-20); Calcium 8.9 mg/dl (8.4-10.2); Carbon Dioxide 27 mmol/L (22-30); Chloride 97 mmol/L (98-107); Glucose 105 mg/dl (70-99); Potassium 3.4 mmol/L (3.5-5.1); Sodium 137 mmol/L (135-145); Total Bilirubin 0.5 mg/dl (0.2-1.3); Total Protein 6.2 g/dl (6.3-8.2); eGFR > 60.00
[2024-08-15 19:00] LABS: CEA 14.9 ng/ml
== END ==
LOC: REG 09:34
PROVIDERS: ATTENDING PHYSICIAN Internal Medicine Hematology & Oncology; FAMILY PHYSICIAN Family Medicine
DX: D50.9 Iron deficiency anemia, unspecified (principal); C18.0 Malignant neoplasm of cecum; C78.7 Secondary malignant neoplasm of liver and intrahepatic bile duct
CPT/HCPCS: 36415; 80053; 82378; 85025

== ENCOUNTER → 2024-09-02 10:47 | Outpatient (REF) | payer OTHER, SELFPAY ==
[2024-09-02 11:31] LABS: Hematocrit 41.4 % (39.0-52.0); Hemoglobin 13.5 g/dL (13.0-18.0); Mean Corp Hgb Conc. 32.6 g/dL (33.0-37.0); Mean Corpuscular Hgb 28.7 pg (27.0-31.0); Mean Corpuscular Volume 87.9 fL (80.0-94.0); Mean Platelet Volume 9.5 fL (7.4-10.4); Platelet Count 250 10^3/uL (130-400); Red Blood Cell Count 4.71 10^6/uL (4.70-6.10); Red Cell Dist. Width 17.6 % (11.5-14.5); White Blood Cell Count 2.9 10^3/uL (4.8-10.8)
[2024-09-02 11:53] LABS: Atypical Lymphocytes 1 %; Band Neutrophils 2 % (0-3); Eosinophils 7 % (0-6); Lymphocytes 54 % (20-51); Monocytes 11 % (2-9); Segmented Neutrophils 25 % (42-75)
[2024-09-02 11:54] LABS: Anisocytosis 1+; Hypochromasia 1+; Normal RBC Morphology No; Ovalocytes 1+; Platelets Checked Yes; Polychromasia 1+; Total Cells Counted 100
[2024-09-02 11:57] LABS: Absolute Neutrophils -Man Diff 0.7 10^3/uL (1.4-6.5)
[2024-09-02 12:00] LABS: ALT (SGPT) 40 U/L (0-50); AST (SGOT) 42 U/L (17-59); Albumin 4.4 g/dl (3.5-5.0); Alkaline Phosphatase 78 U/L (38-126); Blood Urea Nitrogen 13 mg/dl (9-20); Calcium 9.5 mg/dl (8.4-10.2); Carbon Dioxide 33 mmol/L (22-30); Chloride 104 mmol/L (98-107); Glucose 101 mg/dl (70-99); Potassium 4.3 mmol/L (3.5-5.1); Sodium 142 mmol/L (135-145); Total Bilirubin 0.6 mg/dl (0.2-1.3); Total Protein 6.9 g/dl (6.3-8.2); eGFR > 60.00
[2024-09-02 12:29] LABS: CEA 16.5 ng/ml
== END ==
LOC: REG 10:47
PROVIDERS: ATTENDING PHYSICIAN Internal Medicine Hematology & Oncology; FAMILY PHYSICIAN Family Medicine
DX: D50.9 Iron deficiency anemia, unspecified (principal); C18.0 Malignant neoplasm of cecum; C78.7 Secondary malignant neoplasm of liver and intrahepatic bile duct
CPT/HCPCS: 36415; 80053; 82378; 85025

== ENCOUNTER → 2024-09-07 12:07 | Outpatient (REF) | payer OTHER, SELFPAY | LOC: MRI 3T 12:07 | PROVIDERS: ATTENDING PHYSICIAN Internal Medicine Hematology & Oncology; FAMILY PHYSICIAN Family Medicine | DX: D50.9 Iron deficiency anemia, unspecified (principal); C18.0 Malignant neoplasm of cecum; C78.7 Secondary malignant neoplasm of liver and intrahepatic bile duct | CPT/HCPCS: 74183; A9585 ==

== ENCOUNTER → 2024-09-13 10:13 | Outpatient (REF) | payer OTHER, SELFPAY ==
[2024-09-13 11:05] LABS: % Basophils 0.7 % (0-2); % Eosinophils 1.2 % (0-6); % Immature Granulocytes 0.5 % (0-0.5); % Lymphocytes 22.6 % (20.5-51.1); % Monocytes 12.1 % (1.7-9.3); % Neutrophils 62.9 % (42.2-75.2); Absolute Eosinophils 0.1 10^3/uL (0-0.7); Absolute Lymphocytes 1.3 10^3/uL (1.2-3.4); Absolute Monocytes 0.7 10^3/uL (0.1-0.6); Absolute Neutrophils 3.7 10^3/uL (1.4-6.5); Hematocrit 39.6 % (39.0-52.0); Hemoglobin 13.4 g/dL (13.0-18.0); Mean Corp Hgb Conc. 33.8 g/dL (33.0-37.0); Mean Corpuscular Hgb 29.9 pg (27.0-31.0); Mean Corpuscular Volume 88.4 fL (80.0-94.0); Mean Platelet Volume 9.8 fL (7.4-10.4); Nucleated Red Blood Cells % 0 % (-); Platelet Count 186 10^3/uL (130-400); Red Blood Cell Count 4.48 10^6/uL (4.70-6.10); Red Cell Dist. Width 17.2 % (11.5-14.5); White Blood Cell Count 5.9 10^3/uL (4.8-10.8)
[2024-09-13 11:23] LABS: ALT (SGPT) 51 U/L (0-50); AST (SGOT) 47 U/L (17-59); Albumin 4.4 g/dl (3.5-5.0); Alkaline Phosphatase 75 U/L (38-126); Blood Urea Nitrogen 19 mg/dl (9-20); Calcium 9.6 mg/dl (8.4-10.2); Carbon Dioxide 26 mmol/L (22-30); Chloride 106 mmol/L (98-107); Glucose 125 mg/dl (70-99); Sodium 139 mmol/L (135-145); Total Bilirubin 0.6 mg/dl (0.2-1.3); Total Protein 6.8 g/dl (6.3-8.2); eGFR > 60.00
[2024-09-13 11:51] LABS: CEA 12.1 ng/ml
== END ==
LOC: REG 10:13
PROVIDERS: ATTENDING PHYSICIAN Internal Medicine Hematology & Oncology; FAMILY PHYSICIAN Family Medicine
DX: D50.9 Iron deficiency anemia, unspecified (principal); C18.0 Malignant neoplasm of cecum; C78.7 Secondary malignant neoplasm of liver and intrahepatic bile duct
CPT/HCPCS: 36415; 80053; 82378; 85025

== ENCOUNTER → 2024-09-27 09:35 | Outpatient (REF) | payer OTHER, SELFPAY ==
[2024-09-27 10:57] LABS: % Basophils 0.9 % (0-2); % Immature Granulocytes 0.2 % (0-0.5); % Lymphocytes 24.5 % (20.5-51.1); % Monocytes 13.4 % (1.7-9.3); Absolute Basophils 0.1 10^3/uL (0-0.2); Absolute Eosinophils 0.2 10^3/uL (0-0.7); Absolute Lymphocytes 1.3 10^3/uL (1.2-3.4); Absolute Monocytes 0.7 10^3/uL (0.1-0.6); Absolute Neutrophils 3.1 10^3/uL (1.4-6.5); Hematocrit 38.9 % (39.0-52.0); Hemoglobin 13.1 g/dL (13.0-18.0); Mean Corp Hgb Conc. 33.7 g/dL (33.0-37.0); Mean Corpuscular Hgb 30.5 pg (27.0-31.0); Mean Corpuscular Volume 90.7 fL (80.0-94.0); Mean Platelet Volume 9.4 fL (7.4-10.4); Nucleated Red Blood Cells % 0 % (-); Platelet Count 214 10^3/uL (130-400); Red Blood Cell Count 4.29 10^6/uL (4.70-6.10); Red Cell Dist. Width 16.4 % (11.5-14.5); White Blood Cell Count 5.5 10^3/uL (4.8-10.8)
[2024-09-27 11:20] LABS: ALT (SGPT) 41 U/L (0-50); AST (SGOT) 43 U/L (17-59); Albumin 4.5 g/dl (3.5-5.0); Alkaline Phosphatase 74 U/L (38-126); Blood Urea Nitrogen 9 mg/dl (9-20); Calcium 9.4 mg/dl (8.4-10.2); Carbon Dioxide 24 mmol/L (22-30); Chloride 107 mmol/L (98-107); Glucose 121 mg/dl (70-99); Sodium 141 mmol/L (135-145); Total Bilirubin 0.8 mg/dl (0.2-1.3); Total Protein 6.9 g/dl (6.3-8.2); eGFR > 60.00
[2024-09-27 11:46] LABS: CEA 14.8 ng/ml
== END ==
LOC: REG 09:35
PROVIDERS: ATTENDING PHYSICIAN Internal Medicine Hematology & Oncology; FAMILY PHYSICIAN Family Medicine
DX: D50.9 Iron deficiency anemia, unspecified (principal); C18.0 Malignant neoplasm of cecum; C78.7 Secondary malignant neoplasm of liver and intrahepatic bile duct
CPT/HCPCS: 36415; 80053; 82378; 85025

== ENCOUNTER 2024-10-13 06:11 | Day surgery (SDC) | payer OTHER, SELFPAY ==
[2024-10-13 13:02] VITALS: BMI 39.8
[2024-10-13 13:04] VITALS: BMI 39.8
[2024-10-13 13:05] VITALS: BP 169/73
[2024-10-13 15:07] VITALS: BP 126/71
[2024-10-13 15:15] VITALS: BP 124/65
[2024-10-13 15:30] VITALS: BP 111/71
[2024-10-13 15:45] VITALS: BP 125/85
== END 2024-10-13 16:08 | disposition home or self-care (01) ==
LOC: GI 06:11
PROVIDERS: ATTENDING PHYSICIAN Surgery; FAMILY PHYSICIAN Family Medicine; REFERRING PHYSICIAN Internal Medicine Cardiovascular Disease
DX: K64.4 Residual hemorrhoidal skin tags (principal); K64.8 Other hemorrhoids; C18.9 Malignant neoplasm of colon, unspecified; K62.89 Other specified diseases of anus and rectum; D12.7 Benign neoplasm of rectosigmoid junction; D12.0 Benign neoplasm of cecum; D12.3 Benign neoplasm of transverse colon; D12.8 Benign neoplasm of rectum
CPT/HCPCS: 45385; 45380; 88305; J1610

== ENCOUNTER 2024-10-14 05:54 | Inpatient (IN) | payer OTHER, SELFPAY ==
[2024-10-07 08:47] LABS: Hematocrit 39.1 % (39.0-52.0); Mean Corp Hgb Conc. 33.2 g/dL (33.0-37.0); Mean Corpuscular Hgb 31.5 pg (27.0-31.0); Mean Corpuscular Volume 94.7 fL (80.0-94.0); Mean Platelet Volume 9.3 fL (7.4-10.4); Platelet Count 224 10^3/uL (130-400); Red Blood Cell Count 4.13 10^6/uL (4.70-6.10); Red Cell Dist. Width 15.6 % (11.5-14.5); White Blood Cell Count 4.7 10^3/uL (4.8-10.8)
[2024-10-07 09:00] LABS: INR 0.95
[2024-10-07 09:01] LABS: APTT 31.1 Sec (23.4-35.0)
[2024-10-07 09:04] LABS: ALT (SGPT) 40 U/L (0-50); AST (SGOT) 37 U/L (17-59); Albumin 4.2 g/dl (3.5-5.0); Alkaline Phosphatase 70 U/L (38-126); Blood Urea Nitrogen 13 mg/dl (9-20); Calcium 9.7 mg/dl (8.4-10.2); Carbon Dioxide 30 mmol/L (22-30); Chloride 109 mmol/L (98-107); Glucose 99 mg/dl (70-99); Potassium 4.6 mmol/L (3.5-5.1); Sodium 143 mmol/L (135-145); Total Bilirubin 0.7 mg/dl (0.2-1.3); Total Protein 6.8 g/dl (6.3-8.2); eGFR > 60.00
[2024-10-07 13:53] VITALS: BMI 41.0
[2024-10-12 10:52] VITALS: BMI 41.0
--- NOTE | 2024-10-12 13:17 | CM ---
CM received call from PAT RN regarding patient's discharge planning. CM spoke with patient. Patient has had a history of VN with [facility]. Patient further stated that he has a history of respite care at [facility]. Patient does have
ostomy supplies, but has reported difficulty with ostomy care. Patient understands that [facility] may not be available for discharge as PT has to make the recommendation.
Patient stated that he would be agreeable to SNF if recommended.
Patient lives next door to his brother who has been supportive during patient's treatments. CM will remain available as needed.
PLAN: Pending post operative course and PT recommendations.
[2024-10-14] VITALS (13 sets, daily range): BP systolic 115–144; BP diastolic 61–84; BMI 41.0
[2024-10-14] MEDS: LYRICA 150 MG PO (06:26)
[2024-10-14] MEDS: ENTEREG 12 MG PO (06:26)
[2024-10-14] MEDS: HEPARIN 5000 UNITS SC (06:26)
[2024-10-14] MEDS: CELEBREX 200 MG PO (06:26)
[2024-10-14] MEDS: TYLENOL 1000 MG PO ×2 (06:26→18:02)
[2024-10-14] MEDS: NORMOSOL-R/PLASMALYTE-A 1000 IV ×2 (06:55→14:37)
--- NOTE | 2024-10-14 12:40 | W.IMMPOSTOP ---
Addendum entered and electronically signed by Bi Churchill MD 10/14/24 13:05:
updated Lesly over the phone
Original Note:
Surgical Immed Post Op Note
-
Primary Surgeon: Bi Churchill MD
Assisting Surgeon: LOIS Mehta
Pre-op Diagnosis: History of end-colostomy, metastatic colon cancer
Post-op Diagnosis: History of end-colostomy, metastatic colon cancer
Procedure Performed: Robotic colostomy reversal, lysis of adhesions, mesenteric angiography with ICG, flexible sigmoidoscopy, laparoscopic TAP block
Anesthesia Type: General
Specimen / Cultures: Colostomy
Estimated Blood Loss: 50
IVF: 2.2 L
UOP: 200 mL
Complications: None
Operative Findings: Took down end colostomy and placed anvil with 3-0 Prolene pursestring; pulled in serosal injury with 3-0 Vicryl pursestring; insufflated abdomen and placed ports; lysed adhesions from the omentum to anterior abdominal wall as
well as omentum to the descending colon; freed up adhesions from the small bowel to the pelvic brim; mobilized the rectosigmoid posteriorly and took this up laterally, staying above the peritoneal reflection; flexible sigmoidoscopy showed healthy
rectum up to staple line; passed sizers, which reached easily; removed previously placed 3-0 Prolene and ensured hemostasis; performed EEA stapled anastomosis, negative leak test, intact on flexible sigmoidoscopy, donuts intact; oversewed anterior
portion of staple line with 2-0 Vicryl's; hemostasis was confirmed; robot undocked and performed laparoscopic TAP block; cleaned up fascial edges of ostomy wound and closed posterior fascia with 0 Vicryl and anterior fascia with 0 stratafix
--- NOTE | 2024-10-14 12:46 | OR.RPT ---
Operative Report
Operative Report
DATE OF OPERATION: 10/14/2024
SURGEON: Bi Churchill MD
PREOPERATIVE DIAGNOSIS: History of colostomy, metastatic colon cancer
POSTOPERATIVE DIAGNOSIS: History of colostomy, metastatic colon cancer
OPERATION: Robotic colostomy reversal, adhesiolysis greater than 1 hour, mesenteric angiography with ICG, flexible sigmoidoscopy, laparoscopic TAP block
ASSISTANTS:
1. LOIS Mehta
ANESTHESIA: General
ESTIMATED BLOOD LOSS: 50 mL
IVF: 2.2 L
URINE OUTPUT: 200 mL
FINDINGS:
1. Significant adhesions from the colostomy, descending colon and anterior abdominal wall to the omentum; additional interloop adhesions and adhesions from the small bowel to the pelvic brim
2. Performed EEA stapled anastomosis at about 20 cm from the anal verge; donuts intact x 2, negative leak test, anastomosis intact on flexible sigmoidoscopy
SPECIMENS:
1. Colostomy
DRAINS: None
COMPLICATIONS: No immediate complications.
INDICATIONS: The patient is a 64-year-old male who initially presented in March 2024 with abdominal pain and bloating, found to have a perforated colon cancer with local invasion into small bowel. He underwent urgent sigmoidectomy with en bloc
small bowel resection x 2. He was found to have lesions in the liver, one of which was biopsied and confirmed metastatic disease. He has undergone 7 cycles of FOLFOX as well as 2 months of combination therapy with Avastin. His liver lesions
improved, but there was one new small focus of hypermetabolic activity in the liver. Due to the effect on his quality of life that the colostomy has had, which was severe, the multidisciplinary team felt it in his best interest to take a break from
chemotherapy to proceed with colostomy reversal. After discussing with surgical oncology, it was determined to proceed with colostomy reversal separate from liver lesion resections. The operation was discussed with the patient in detail, including
the risks, benefits and alternatives. Risks described included, but not limited to, bleeding, infection, anastomotic leak, damage to nearby structures (i.e.- ureter, bowel, solid organs), incisional hernia, need for diverting ostomy creation,
conversion to open, inability to reverse ostomy, progression of his disease while off chemotherapy and anesthetic risks, including but not limited to OH, stroke, DVT/PE, respiratory failure and . The patient and patient's 3 siblings understood
and agreed to proceed.
PROCEDURE IN DETAIL: The patient was taken to the operating room and placed on the operating table in supine position. Sequential compression devices were placed bilaterally. General anesthesia was induced and the patient was intubated without
complication. The patient was placed in lithotomy position with both arms tucked. Urology performed a cystoscopy, placed bilateral ureteral stents, injected each ureter with 2.5mL of ICG and placed a hughes. The ostomy site was sutured closed with
2-0 Vicryl. The abdomen was shaved, prepped and draped in a sterile fashion. A time-out was performed verifying the correct patient, procedure, operative site, positioning, and special equipment. Anesthesia placed an orogastric tube. Preoperative
antibiotics were given. A marking pen was used to jenny out the midline.
Using electrocautery, the mucocutaneous junction was divided circumferentially around the colostomy. This was taken down to the level of the fascia with meticulous dissection, in order to prevent injury to the colon. Hemostasis was achieved. I
entered the abdominal cavity and cleared the surrounding area of adhesions using a finger sweep. There were significant adhesions from the omentum to the colostomy that were taken down with Johanne clamps, Metzenbaum scissors and 2-0 Vicryl ties. I
selected a point proximal from the colostomy. A window was created in the mesentery, which was divided using clamps, Metzenbaum scissors and 0 Vicryl ties. The colon was divided with Bovie electrocautery. Within the colostomy, I identified a 8 mm
benign�appearing polyp. The colostomy with polyp was passed off as specimen. A 3-0 Prolene was sutured in a pursestring around the edge of the colon in a running Irving fashion. The anvil was placed and the pursestring was closed around it. The
anvil staple line was cleared from any intervening mesentery and fat. A diverticulum and small serosal injury was noted that would intervene with the anvil staple line. This was tightened to the post of the anvil using a 2-0 Vicryl. The tissue
around the anvil did not appear too bulky. The anvil and colon was then returned to the abdomen. A small Amando with port cap was placed and a robotic 12 mm port was placed through the port cap. The abdomen was insufflated. The robotic endoscope
was advanced and the abdomen was explored.
There were multiple adhesions noted from the omentum and bowel to the anterior abdominal wall, but the areas for my ports were clear. Three 8mm robotic ports were placed under direct visualization in a diagonal fashion from Goodrich's point to the
right lower quadrant, as well as an 8mm assist port in the right lateral mid abdomen, taking care to avoid injury to the right epigastric vessels. The left upper quadrant port was changed to the air seal port. The patient was placed in 26 degrees
Trendelenburg (10 degrees was level) and 10 degrees [id number]. The robot was docked from the patient's left side. From the RLQ to Goodrich's point, the instruments introduced were the scissors, camera, bipolar grasper and tip-up grasper,
respectively.
I took down the adhesions from the omentum to the anterior abdominal wall using sharp dissection. I divided the adhesions from the omentum to the descending colon. I checked the reach from the descending colon and the reach was plenty adequate. I
continued lysing adhesions from the small bowel to the left lower quadrant and pelvic brim. The staple line at the rectosigmoid was easily identified and there were no significant adhesions to it. I mobilized the rectosigmoid, starting posteriorly
and taken this up laterally on each side, taking care to avoid injury to the ureters, which were easily identified on firefly. I scored the peritoneum along the proximal rectum, a few centimeters superior to the anterior pelvic reflection.
Hemostasis was assured. I performed flexible sigmoidoscopy, which showed healthy rectum up to the staple line, at about 20 cm from the anal verge. There was no stool. I passed EEA sizers up the rectum to ensure adequate circumference and length.
The Key's pouch was ready for the anastomosis except for the 3-0 Prolene that I had placed during the index surgery to help identify the staple line. This was crossing into the intended anastomosis. I returned to the robotic console and
removed the tails from the knot. I checked the operative field for hemostasis, which was assured.
The EEA stapler was passed transanally to the distal staple line. The pin was extended and was connected with the anvil. After ensuring there was no twist to the mesentery and there was no tension, the EEA stapler was closed for 1 minute and then
fired. Both donuts were intact. A leak test was performed by filling the pelvis with saline, occluding the proximal lumen and insufflating with the flexible sigmoidoscope. There was no evidence of leak from the anastomosis. Endoscopically, the
anastomosis was intact without evidence of bleeding. The colorectum was desufflated and the flexible sigmoidoscope removed. The anterior aspect of the anastomosis was oversewn with interrupted Lemberts using 2-0 Vicryl's.
The robotic instruments were removed and the robot was undocked. Using laparoscopic visualization, a TAP block was performed using a total of 30 mL of 0.25% Marcaine with epinephrine mixed with dexamethasone and injecting in the transverse
abdominis plane bilaterally. The remaining ports were removed under direct visualization and no bleeding was noted. The colostomy site was closed in layers. First, the edges of the anterior fascia were cleaned from the subcutaneous fat. The
peritoneum and posterior sheath was closed with a running 0-Vicryl stitch. The anterior fascia was closed using an 0 Stratafix suture. The incisions were irrigated. The skin opening of the colostomy wound was tightened by running a 2-0 Vicryl
stitch in a deep dermal pursestring fashion. The wound was packed with plain packing soaked in Betadine. The remaining 30 cc of 0.25% Marcaine with epinephrine mixed with dexamethasone were injected around the incisions. The incisions were closed
with running subcuticular 4-0 Monocryl and dressed with Dermabond. The ostomy wound was dressed with gauze and Tegaderm.
At this point, the procedure was complete. The patient was awoken and extubated without complication. The right stent was removed, and the left stent and Hughes were left in place. All needle, sponge and instrument counts were reported as correct.
The patient tolerated the procedure well and was transferred to the recovery room in stable condition.
DICTATED BY: Bi Churchill MD
[2024-10-14 12:59] LABS: Glucose - Point of Care 164 mg/dl (70-99)
[2024-10-14] MEDS: TORADOL 15 MG IV ×2 (14:40→20:10)
[2024-10-14] MEDS: FLOMAX 0.4 MG PO (14:40)
--- NOTE | 2024-10-14 15:00 | PTCARENOTE ---
Pt arrived to 2S in bed. Full assessment completed. Telemetry applied, nasal cannula maintained. IVF infusing per order. Pt drowsy with slow speech but easily arouses to verbal stimuli. Abdominal lap sites C/D/I, ostomy takedown site with gauze and
tegederm C/D/I. Laws catheter clean and intact draining blood tinged urine. Pt educated on CLD, diet advancement, and to ring for assistance getting OOB, pt verbalized understanding. Bed locked and in the lowest position, safety maintained.
[2024-10-14] MEDS: APRESOLINE 50 MG PO ×2 (18:02→21:36)
[2024-10-15] VITALS (7 sets, daily range): BP systolic 110–157; BP diastolic 60–89; PULSE 86; O2SAT 96; BMI 40.1
[2024-10-15] MEDS: TYLENOL 1000 MG PO ×4 (01:09→18:17)
[2024-10-15] MEDS: TORADOL 15 MG IV ×4 (01:09→21:09)
[2024-10-15 06:18] LABS: % Basophils 0.1 % (0-2); % Immature Granulocytes 0.5 % (0-0.5); % Lymphocytes 7.3 % (20.5-51.1); % Monocytes 10.3 % (1.7-9.3); % Neutrophils 81.8 % (42.2-75.2); Absolute Immature Granulocytes 0.1 10^3/uL (0-0.05); Absolute Lymphocytes 0.9 10^3/uL (1.2-3.4); Absolute Monocytes 1.3 10^3/uL (0.1-0.6); Absolute Neutrophils 10.6 10^3/uL (1.4-6.5); Hemoglobin 11.9 g/dL (13.0-18.0); Mean Corpuscular Hgb 31.5 pg (27.0-31.0); Mean Corpuscular Volume 92.6 fL (80.0-94.0); Mean Platelet Volume 9.6 fL (7.4-10.4); Nucleated Red Blood Cells % 0 % (-); Platelet Count 168 10^3/uL (130-400); Red Blood Cell Count 3.78 10^6/uL (4.70-6.10); Red Cell Dist. Width 14.5 % (11.5-14.5)
[2024-10-15 06:49] LABS: Blood Urea Nitrogen 16 mg/dl (9-20); Carbon Dioxide 21 mmol/L (22-30); Chloride 108 mmol/L (98-107); Estimated Creatinine Clearance > 125 ml/min; Glucose 129 mg/dl (70-99); Magnesium 2.9 mg/dl (1.6-2.3); Potassium 4.2 mmol/L (3.5-5.1); Sodium 138 mmol/L (135-145); eGFR > 60.00
[2024-10-15] MEDS: TOPROL XL 25 MG PO (08:31)
[2024-10-15] MEDS: ENTEREG 12 MG PO ×2 (08:32→21:10)
[2024-10-15] MEDS: FLOMAX 0.4 MG PO (08:32)
[2024-10-15] MEDS: NORVASC 5 MG PO (08:32)
[2024-10-15] MEDS: APRESOLINE 50 MG PO ×3 (08:32→21:09)
[2024-10-15] MEDS: NORMOSOL-R/PLASMALYTE-A IV (10:15)
--- NOTE | 2024-10-15 12:53 | CM ---
Addendum entered by Lola Pereira 10/15/24 13:50:
CM observed pt independently ambulating throughout hallways
Original Note:
CM met with pt bedside
Pt resides alone in [place] with 4 JANNA
Notes independence with use of a rollator, drives+
His brother lives next door
He has hx with [facility] and outpt therapy, denies SNF hx
PCP- Alejo England
rx- Ryan Oden
PT following with VN vs rehab recs
Pt ambulating 100 ft sup level
He is hopeful for SNF as he wants to learn how to get off the ground should he fall
Educated on SNF skillable needs/care and potential insurance denial
Discussed outpt vs VN
Will follow PT progress, he likely will dc with outpt therapy as he feels he will get more therapy than with VN
Discharge Disposition- TBD, anticipate home with outpt
--- NOTE | 2024-10-15 13:00 | W.PN.CRS1 ---
Addendum entered and electronically signed by Bi Churchill MD 10/15/24 15:27:
64-year-old male with PMH of sarcoidosis, HTN, and metastatic colon cancer to the liver (underwent exploratory laparotomy with sigmoidectomy and en bloc SBR x 2, and liver biopsy, consistent with metastatic adenocarcinoma; s/p 7 cycles of FOLFOX,
last dose 4 weeks ago, as well as 2 months of Avastin, held 8 weeks ago) who presented for a palliative colostomy reversal
Tolerating regular diet without N/V, passing flatus. Pain controlled
POD 1 robotic end colostomy reversal
AFVSS, ABD soft, nondistended, appropriately tender near incisions; port incisions well-approximated without erythema or drainage; ostomy wound clean without erythema or drainage, packing removed and dressed with gauze; Hughes in place, remove stent
WBC 13.0, Hb 11.9, CR 0.8
�Continue regular diet
� Pain control, continue Entereg
� Start DVT PPx with Lovenox
� Hold hydrochlorothiazide for 1 additional day, blood pressure has been WNL
� DC Hughes, monitor for void; continue Flomax per Dr. Carbajal (identified large bladder during cystoscopy)
� Encourage OOB/IS
�Appreciate PT
Original Note:
Today's Communication / Plan
-
Voiding trial
Regular diet
Assessment/Plan
-
63-year-old male with PMH of metastatic colon ca with prior colostomy creation and chemotherapy
POD #1 Robotic colostomy reversal, lysis of adhesions, mesenteric angiography with ICG, flexible sigmoidoscopy, laparoscopic TAP block
Mild leukocytosis, reactive
Stable labs
AFVSS
Good UO and PO intake
Plan:
Ureteral cath removed at bedside
D/C hughes for voiding trial
Continue regular diet
Multimodal analgesics
D/C IVF
Lovenox and SCD's for VTE ppx
Subjective Data
Procedure
10/14/24 Robotic colostomy reversal, lysis of adhesions, mesenteric angiography with ICG, flexible sigmoidoscopy, laparoscopic TAP block
Subjective Data
Date of Service: October 15, 2024
Patient seen and examined at bedside with Dr. Churchill. Martha n/kelly. OOB to chair. Passing gas. Minimal pain. Tolerating diet thus far.
Objective Data
-
Vital Signs
Temp Pulse Resp BP Pulse Ox
97.9 F 81 18 131/79 97
10/15/24 11:23 10/15/24 11:23 10/15/24 11:23 10/15/24 11:23 10/15/24 11:23
Intake & Output
10/14/24 10/15/24 10/16/24
06:59 06:59 06:59
Intake Total 2340 / 2340 480 / 480
Output Total 1375 / 1375
Balance 965 / 965 480 / 480
Intake:
Oral fluids 1440 / 1440 480 / 480
IV fluids (Total) 900 / 900
Normosol 100 / 100
Output:
Urine, Hughes 1375 / 1375
Lab Results
10/15/24 05:52
10/15/24 05:52
Physical Exam
-
General: No Acute Distress
HEENT: Grossly Normal
Abdomen: Soft, Non Distended, Tender (minimal to prior ostomy site (expected)) and Other (hughes with pink urine, ureteral catheter removed)
Skin: Warm and Dry
Wound: Dressing Changed (packing removed, prior stoma site without erythema)
Incision: Clear, Dry, Intact (dermabond to incisions)
[2024-10-15] MEDS: LOVENOX 40 MG SC (18:17)
[2024-10-16] MEDS: TYLENOL PO (01:24)
[2024-10-16 03:11] VITALS: BP 150/90
[2024-10-16] MEDS: TORADOL IV (03:23)
[2024-10-16] MEDS: TYLENOL 1000 MG PO (04:37)
[2024-10-16 06:00] VITALS: BMI 40.9
[2024-10-16 06:13] LABS: Hematocrit 35.8 % (39.0-52.0); Hemoglobin 12.1 g/dL (13.0-18.0); Mean Corp Hgb Conc. 33.8 g/dL (33.0-37.0); Mean Corpuscular Hgb 31.8 pg (27.0-31.0); Mean Corpuscular Volume 94.2 fL (80.0-94.0); Mean Platelet Volume 9.8 fL (7.4-10.4); Platelet Count 178 10^3/uL (130-400); Red Cell Dist. Width 14.4 % (11.5-14.5); White Blood Cell Count 9.8 10^3/uL (4.8-10.8)
[2024-10-16] MEDS: TORADOL 15 MG IV (06:30)
[2024-10-16] MEDS: FLUSH (NSS) 2 FLUSH IV (06:31)
[2024-10-16 06:41] LABS: Blood Urea Nitrogen 12 mg/dl (9-20); Calcium 8.5 mg/dl (8.4-10.2); Carbon Dioxide 26 mmol/L (22-30); Chloride 108 mmol/L (98-107); Estimated Creatinine Clearance > 125 ml/min; Glucose 95 mg/dl (70-99); Potassium 3.5 mmol/L (3.5-5.1); Sodium 141 mmol/L (135-145); eGFR > 60.00
[2024-10-16 08:07] VITALS: BP 150/76
[2024-10-16] MEDS: APRESOLINE 50 MG PO (08:35)
[2024-10-16] MEDS: ENTEREG 12 MG PO (08:36)
[2024-10-16] MEDS: ORETIC 25 MG PO (08:36)
[2024-10-16] MEDS: NORVASC 5 MG PO (08:36)
[2024-10-16] MEDS: TOPROL XL 25 MG PO (08:36)
[2024-10-16] MEDS: FLOMAX 0.4 MG PO (08:36)
[2024-10-16 10:16] VITALS: BP 132/71; PULSE 83
--- NOTE | 2024-10-16 11:19 | W.PN.CRS1 ---
Addendum entered and electronically signed by Bi Churchill MD 10/16/24 23:48:
I saw and examined the patient.
The CARBOY FILLER's note was reviewed and I agree with the note.
Comment:
64-year-old male with PMH of sarcoidosis, HTN, and metastatic colon cancer to the liver (underwent exploratory laparotomy with sigmoidectomy and en bloc SBR x 2, and liver biopsy, consistent with metastatic adenocarcinoma; s/p 7 cycles of FOLFOX,
last dose 4 weeks ago, as well as 2 months of Avastin, held 8 weeks ago) who presented for a palliative colostomy reversal
POD 2 robotic end colostomy reversal
AFVSS, ABD soft, nondistended, appropriately tender near incisions; port incisions well-approximated without erythema or drainage; ostomy wound clean without erythema or drainage
WBC 9.8, Hb stable
�Continue regular diet
� Pain control, continue Entereg
� Continue DVT PPx with Lovenox
� Restart hydrochlorothiazide
� Patient voiding, okay to DC Flomax
� Encourage OOB/IS
�Appreciate PT; cleared for discharge home with outpatient PT
Dispo�tolerating regular diet, okay for DC; spoke with sister Mar over the phone; will DC with 4 weeks of Eliquis 2.5 mg for extended DVT PPx
Original Note:
Today's Communication / Plan
-
dispo planning
Assessment/Plan
-
63-year-old male with PMH of metastatic colon ca with prior colostomy creation and chemotherapy
POD #2 Robotic colostomy reversal, lysis of adhesions, mesenteric angiography with ICG, flexible sigmoidoscopy, laparoscopic TAP block
Leukocytosis resolved
Stable labs
AFVSS
voiding well
tolerating diet with evidence of bowel recovery
Plan:
Continue regular diet
Multimodal analgesics
PT/OT following
Lovenox and SCD's for VTE ppx
d/c planning
Subjective Data
Procedure
10/14/24 Robotic colostomy reversal, lysis of adhesions, mesenteric angiography with ICG, flexible sigmoidoscopy, laparoscopic TAP block
Subjective Data
Date of Service: October 16, 2024
Patient seen and examined at bedside with Dr. Churchill. Denies nausea and vomiting. Tolerating diet. Minimal discomfort. Ambulating in room, took a shower today. Voiding well. Passing stools and flatus.
Objective Data
-
Vital Signs
Temp Pulse Resp BP Pulse Ox
98.7 F 75 18 150/76 99
10/16/24 08:07 10/16/24 08:07 10/16/24 08:07 10/16/24 08:07 10/16/24 08:07
Intake & Output
10/15/24 10/16/24 10/17/24
06:59 06:59 06:59
Intake Total 2340 / 2340 1680 / 1680
Output Total 1375 / 1375 1360 / 1360
Balance 965 / 965 320 / 320
Intake:
Oral fluids 1440 / 1440 1680 / 1680
IV fluids (Total) 900 / 900
Normosol 100 / 100
Output:
Urine, Laws 1375 / 1375 500 / 500
Urine, Voided 860 / 860
Other:
Number of approximated MODERATE 1
amounts of urine
How many times incontinent 1
SATURATED amount urine
Number of unmeasured liquid
stools
Rectum 2
Lab Results
10/16/24 05:55
10/16/24 05:55
Physical Exam
-
General: No Acute Distress
HEENT: Grossly Normal
Abdomen: Soft, Non Distended and Non Tender
Skin: Warm and Dry
Wound: Dressing Changed (prior stoma site without erythema, minimal ss drainage (expected))
Incision: Clear, Dry, Intact (dermabond to incisions)
[2024-10-16 11:55] VITALS: BP 154/81
--- NOTE | 2024-10-16 12:11 | W.DS.TRANS ---
Addendum entered and electronically signed by IVY Sibley 10/17/24 10:17:
dictated #[id number]
Original Note:
DC Summary - Records Management Analyst
-
Discharge Instructions:
Discharge Diagnosis/Procedures Robotic colostomy reversal, lysis of adhesions
Diet Regular,As tolerated
Additional Diets Eat small meals at first as bloating is common
Activity No strenuous activity
Additional Activity Do not lift over 10lbs (gallon of milk)
Bathing Restrictions OK to Shower
Other Services PT,OT
Wound Care Ok to shower and wash incisions gently with soap
and water. Do not scrub or pick off the glue.
Avoid soaking or swimming in tubs/pools etc for
minimum of 6 weeks.
Cover your prior ostomy site with a clean gauze
dressing, apply tape to hold in place. Change
daily and as needed if dressing soiled.
Instructions:
Stand-Alone Forms:
Changes to Home Medications: No
Discharge Medications:
DC Medications w/original date entered in [facility]
turmeric root extract 500 mg capsule 500 mg PO BID 05/09/24
amlodipine 5 mg tablet 5 mg PO DAILY Blood Pressure 10/12/24
hydralazine 50 mg tablet 50 mg PO TID Blood Pressure 10/12/24
hydrochlorothiazide 25 mg tablet 25 mg PO DAILY Blood Pressure 10/12/24
metoprolol succinate 25 mg tablet,extended release 24 hr 25 mg PO DAILY Blood Pressure 10/12/24
acetaminophen 325 mg tablet 650 mg (2 x 325 mg) PO Q4HPRN PRN mild pain #1 tab 10/16/24
apixaban 2.5 mg tablet (Eliquis) 2.5 mg PO BID 28 days #56 tabs 10/16/24
ibuprofen 200 mg tablet 400 - 600 mg (2 - 3 x 200 mg) PO Q6HPRN PRN moderate pain #1 tab 10/16/24
tramadol 50 mg tablet 25 - 50 mg (0.5 - 1 x 50 mg) PO Q6HPRN PRN severe pain/breakthrough pain #20 tabs 10/16/24
Home Medication Changes
Pending Results: No
--- NOTE | 2024-10-16 13:00 | CM ---
CM reviewed chart and noted dc order
Outp recs by therapy and pt in agreement
Script provided to pt
IMM verbally reveiwed- copy provided
Brother will transport home
Discharge Disposition- home with outpt PT/OT, family transport
== END 2024-10-16 12:45 | disposition home or self-care (01) | DRG 331 ==
LOC: 2 SOUTH 05:54
PROVIDERS: Registered Nurse; ADMITTING PHYSICIAN Surgery; FAMILY PHYSICIAN Family Medicine
PROC: 0DNW4ZZ Release Peritoneum, Percutaneous Endoscopic Approach (ICD-10-PCS; 2024-10-14)
PROC: 0DQN4ZZ Repair Sigmoid Colon, Percutaneous Endoscopic Approach (ICD-10-PCS; 2024-10-14)
PROC: 8E0W4CZ Robotic Assisted Procedure of Trunk Region, Percutaneous Endoscopic Approach (ICD-10-PCS; 2024-10-14)
DX: C18.9 Malignant neoplasm of colon, unspecified (principal); Z43.3 Encounter for attention to colostomy; N40.0 Benign prostatic hyperplasia without lower urinary tract symptoms; K66.0 Peritoneal adhesions (postprocedural) (postinfection); K76.9 Liver disease, unspecified
CPT/HCPCS: 71046; 80048; 80053; 82962; 83735; 85025; 85027; 85610; 85730; 86850; 86900; 86901; 88304; 97116; 97163; 97530

== ENCOUNTER → 2024-11-08 07:51 | Outpatient (REF) | payer OTHER, SELFPAY ==
[2024-11-08 10:02] LABS: Hematocrit 41.7 % (39.0-52.0); Hemoglobin 14.2 g/dL (13.0-18.0); Mean Corp Hgb Conc. 34.1 g/dL (33.0-37.0); Mean Corpuscular Volume 94.1 fL (80.0-94.0); Nucleated Red Blood Cells % 0 % (-); Platelet Count 213 10^3/uL (130-400); Red Cell Dist. Width 12.8 % (11.5-14.5)
[2024-11-08 10:46] LABS: ALT (SGPT) 27 U/L (0-50); AST (SGOT) 31 U/L (17-59); Albumin 4.7 g/dl (3.5-5.0); Alkaline Phosphatase 74 U/L (38-126); Blood Urea Nitrogen 17 mg/dl (9-20); Calcium 9.4 mg/dl (8.4-10.2); Carbon Dioxide 32 mmol/L (22-30); Chloride 102 mmol/L (98-107); Glucose 97 mg/dl (70-99); Potassium 4.1 mmol/L (3.5-5.1); Sodium 140 mmol/L (135-145); Total Protein 7.4 g/dl (6.3-8.2); eGFR > 60.00
[2024-11-08 11:19] LABS: CEA 33.5 ng/ml
== END ==
LOC: REG 07:51
PROVIDERS: ATTENDING PHYSICIAN Internal Medicine Hematology & Oncology; FAMILY PHYSICIAN Family Medicine
DX: D50.9 Iron deficiency anemia, unspecified (principal); C18.0 Malignant neoplasm of cecum; C78.7 Secondary malignant neoplasm of liver and intrahepatic bile duct
CPT/HCPCS: 36415; 80053; 82378; 85025

== ENCOUNTER → 2024-11-21 07:40 | Outpatient (REF) | payer OTHER, SELFPAY ==
[2024-11-21 08:13] LABS: Hematocrit 40.5 % (39.0-52.0); Hemoglobin 13.6 g/dL (13.0-18.0); Mean Corp Hgb Conc. 33.6 g/dL (33.0-37.0); Mean Corpuscular Volume 95.5 fL (80.0-94.0); Nucleated Red Blood Cells % 0 % (-); Platelet Count 202 10^3/uL (130-400); Red Cell Dist. Width 12.6 % (11.5-14.5)
[2024-11-21 08:47] LABS: ALT (SGPT) 31 U/L (0-50); AST (SGOT) 32 U/L (17-59); Albumin 4.6 g/dl (3.5-5.0); Alkaline Phosphatase 72 U/L (38-126); Blood Urea Nitrogen 17 mg/dl (9-20); Calcium 9.5 mg/dl (8.4-10.2); Carbon Dioxide 30 mmol/L (22-30); Chloride 105 mmol/L (98-107); Glucose 105 mg/dl (70-99); Potassium 4.7 mmol/L (3.5-5.1); Sodium 142 mmol/L (135-145); Total Protein 7.1 g/dl (6.3-8.2); eGFR > 60.00
[2024-11-21 09:15] LABS: CEA 45.9 ng/ml
== END ==
LOC: REG 07:40
PROVIDERS: ATTENDING PHYSICIAN Internal Medicine Hematology & Oncology; FAMILY PHYSICIAN Family Medicine
DX: D50.9 Iron deficiency anemia, unspecified (principal); C18.0 Malignant neoplasm of cecum; C78.7 Secondary malignant neoplasm of liver and intrahepatic bile duct
CPT/HCPCS: 36415; 80053; 82378; 85025

== ENCOUNTER → 2024-11-23 09:58 | Outpatient (REF) | payer OTHER, SELFPAY | LOC: OIDL 09:58 | PROVIDERS: ATTENDING PHYSICIAN Internal Medicine Hematology & Oncology | DX: D50.9 Iron deficiency anemia, unspecified (principal); C18.0 Malignant neoplasm of cecum; C78.7 Secondary malignant neoplasm of liver and intrahepatic bile duct | CPT/HCPCS: 82570; 84156 ==

== ENCOUNTER → 2024-12-05 07:25 | Outpatient (REF) | payer OTHER, SELFPAY ==
[2024-12-05 09:07] LABS: Hematocrit 42.3 % (39.0-52.0); Hemoglobin 14.6 g/dL (13.0-18.0); Mean Corp Hgb Conc. 34.5 g/dL (33.0-37.0); Mean Corpuscular Volume 91.2 fL (80.0-94.0); Nucleated Red Blood Cells % 0 % (-); Platelet Count 169 10^3/uL (130-400); Red Cell Dist. Width 12.9 % (11.5-14.5)
[2024-12-05 09:47] LABS: ALT (SGPT) 30 U/L (0-50); AST (SGOT) 31 U/L (17-59); Albumin 4.5 g/dl (3.5-5.0); Alkaline Phosphatase 72 U/L (38-126); Blood Urea Nitrogen 13 mg/dl (9-20); Calcium 9.1 mg/dl (8.4-10.2); Carbon Dioxide 27 mmol/L (22-30); Chloride 103 mmol/L (98-107); Glucose 99 mg/dl (70-99); Potassium 3.7 mmol/L (3.5-5.1); Sodium 139 mmol/L (135-145); Total Protein 7.0 g/dl (6.3-8.2); eGFR > 60.00
[2024-12-05 19:45] LABS: CEA 51.3 ng/ml
== END ==
LOC: REG 07:25
PROVIDERS: ATTENDING PHYSICIAN Internal Medicine Hematology & Oncology; FAMILY PHYSICIAN Family Medicine
DX: D50.9 Iron deficiency anemia, unspecified (principal); C18.0 Malignant neoplasm of cecum; C78.7 Secondary malignant neoplasm of liver and intrahepatic bile duct
CPT/HCPCS: 36415; 80053; 82378; 82570; 84156; 85025

== ENCOUNTER → 2024-12-27 07:31 | Outpatient (REF) | payer OTHER, SELFPAY ==
[2024-12-27 08:54] LABS: Hematocrit 41.3 % (39.0-52.0); Hemoglobin 14.2 g/dL (13.0-18.0); Mean Corp Hgb Conc. 34.4 g/dL (33.0-37.0); Mean Corpuscular Volume 91.8 fL (80.0-94.0); Nucleated Red Blood Cells % 0 % (-); Platelet Count 176 10^3/uL (130-400); Red Cell Dist. Width 13.6 % (11.5-14.5)
[2024-12-27 10:05] LABS: CEA 21.2 ng/ml
[2024-12-27 10:21] LABS: ALT (SGPT) 57 U/L (0-50); AST (SGOT) 47 U/L (17-59); Albumin 4.4 g/dl (3.5-5.0); Alkaline Phosphatase 87 U/L (38-126); Blood Urea Nitrogen 12 mg/dl (9-20); Calcium 9.4 mg/dl (8.4-10.2); Carbon Dioxide 28 mmol/L (22-30); Chloride 106 mmol/L (98-107); Glucose 102 mg/dl (70-99); HDL Cholesterol 51 mg/dl; LDL Cholesterol, Calculated 92 mg/dl; Potassium 4.4 mmol/L (3.5-5.1); Sodium 140 mmol/L (135-145); Total Protein 6.9 g/dl (6.3-8.2); Very Low Density Lipoprotein 35 mg/dl (0-30); eGFR > 60.00
== END ==
LOC: REG 07:31
PROVIDERS: ATTENDING PHYSICIAN Internal Medicine Cardiovascular Disease; FAMILY PHYSICIAN Family Medicine; OTHER PHYSICIAN Internal Medicine Hematology & Oncology
DX: D50.9 Iron deficiency anemia, unspecified (principal); C18.0 Malignant neoplasm of cecum; C78.7 Secondary malignant neoplasm of liver and intrahepatic bile duct; E78.5 Hyperlipidemia, unspecified
CPT/HCPCS: 36415; 80053; 80061; 82378; 82570; 84156; 85025

== ENCOUNTER → 2025-01-10 07:50 | Outpatient (REF) | payer OTHER, SELFPAY ==
[2025-01-10 09:24] LABS: Hematocrit 42.4 % (39.0-52.0); Hemoglobin 14.5 g/dL (13.0-18.0); Mean Corp Hgb Conc. 34.2 g/dL (33.0-37.0); Mean Corpuscular Volume 90.2 fL (80.0-94.0); Nucleated Red Blood Cells % 0 % (-); Platelet Count 148 10^3/uL (130-400); Red Cell Dist. Width 15.3 % (11.5-14.5)
[2025-01-10 09:52] LABS: ALT (SGPT) 33 U/L (0-50); AST (SGOT) 34 U/L (17-59); Albumin 4.7 g/dl (3.5-5.0); Alkaline Phosphatase 109 U/L (38-126); Blood Urea Nitrogen 17 mg/dl (9-20); Calcium 10.1 mg/dl (8.4-10.2); Carbon Dioxide 25 mmol/L (22-30); Chloride 108 mmol/L (98-107); Glucose 101 mg/dl (70-99); Potassium 4.2 mmol/L (3.5-5.1); Sodium 141 mmol/L (135-145); Total Protein 7.5 g/dl (6.3-8.2); eGFR > 60.00
[2025-01-10 10:21] LABS: CEA 17.0 ng/ml
== END ==
LOC: REG 07:50
PROVIDERS: ATTENDING PHYSICIAN Internal Medicine Hematology & Oncology; FAMILY PHYSICIAN Family Medicine
DX: D50.9 Iron deficiency anemia, unspecified (principal); C18.0 Malignant neoplasm of cecum; C78.7 Secondary malignant neoplasm of liver and intrahepatic bile duct
CPT/HCPCS: 36415; 80053; 82378; 82570; 84156; 85025

== ENCOUNTER → 2025-01-23 07:41 | Outpatient (REF) | payer OTHER, SELFPAY ==
[2025-01-23 08:55] LABS: Hematocrit 42.7 % (39.0-52.0); Hemoglobin 13.8 g/dL (13.0-18.0); Mean Corp Hgb Conc. 32.3 g/dL (33.0-37.0); Mean Corpuscular Volume 94.3 fL (80.0-94.0); Nucleated Red Blood Cells % 0 % (-); Platelet Count 197 10^3/uL (130-400); Red Cell Dist. Width 17.0 % (11.5-14.5)
[2025-01-23 09:47] LABS: ALT (SGPT) 84 U/L (0-50); AST (SGOT) 72 U/L (17-59); Albumin 4.5 g/dl (3.5-5.0); Alkaline Phosphatase 116 U/L (38-126); Blood Urea Nitrogen 12 mg/dl (9-20); Calcium 9.4 mg/dl (8.4-10.2); Carbon Dioxide 29 mmol/L (22-30); Chloride 109 mmol/L (98-107); Glucose 104 mg/dl (70-99); Potassium 4.7 mmol/L (3.5-5.1); Sodium 146 mmol/L (135-145); Total Protein 6.9 g/dl (6.3-8.2); eGFR > 60.00
[2025-01-23 19:33] LABS: CEA 15.5 ng/ml
== END ==
LOC: REG 07:41
PROVIDERS: ATTENDING PHYSICIAN Internal Medicine Hematology & Oncology; FAMILY PHYSICIAN Family Medicine
DX: D50.9 Iron deficiency anemia, unspecified (principal); C18.0 Malignant neoplasm of cecum; C78.7 Secondary malignant neoplasm of liver and intrahepatic bile duct
CPT/HCPCS: 36415; 80053; 82378; 82570; 84156; 85025

== ENCOUNTER → 2025-02-06 07:36 | Outpatient (REF) | payer OTHER, SELFPAY ==
[2025-02-06 08:40] LABS: Hematocrit 40.0 % (39.0-52.0); Hemoglobin 13.4 g/dL (13.0-18.0); Mean Corp Hgb Conc. 33.5 g/dL (33.0-37.0); Mean Corpuscular Volume 95.7 fL (80.0-94.0); Nucleated Red Blood Cells % 0 % (-); Platelet Count 187 10^3/uL (130-400); Red Cell Dist. Width 17.5 % (11.5-14.5)
[2025-02-06 09:07] LABS: ALT (SGPT) 78 U/L (0-50); AST (SGOT) 80 U/L (17-59); Albumin 4.4 g/dl (3.5-5.0); Alkaline Phosphatase 129 U/L (38-126); Blood Urea Nitrogen 14 mg/dl (9-20); Calcium 9.4 mg/dl (8.4-10.2); Carbon Dioxide 28 mmol/L (22-30); Chloride 109 mmol/L (98-107); Glucose 102 mg/dl (70-99); Potassium 4.5 mmol/L (3.5-5.1); Sodium 144 mmol/L (135-145); Total Protein 7.0 g/dl (6.3-8.2); eGFR > 60.00
[2025-02-06 19:49] LABS: CEA 10.9 ng/ml
== END ==
LOC: REG 07:36
PROVIDERS: ATTENDING PHYSICIAN Internal Medicine Hematology & Oncology; FAMILY PHYSICIAN Family Medicine
DX: D50.9 Iron deficiency anemia, unspecified (principal); C18.0 Malignant neoplasm of cecum; C78.7 Secondary malignant neoplasm of liver and intrahepatic bile duct
CPT/HCPCS: 36415; 80053; 82378; 82570; 84156; 85025

== ENCOUNTER → 2025-02-20 07:47 | Outpatient (REF) | payer OTHER, SELFPAY ==
[2025-02-20 08:38] LABS: Hematocrit 41.5 % (39.0-52.0); Hemoglobin 14.2 g/dL (13.0-18.0); Mean Corp Hgb Conc. 34.2 g/dL (33.0-37.0); Mean Corpuscular Volume 94.7 fL (80.0-94.0); Nucleated Red Blood Cells % 0 % (-); Platelet Count 214 10^3/uL (130-400); Red Cell Dist. Width 17.2 % (11.5-14.5)
[2025-02-20 09:15] LABS: ALT (SGPT) 39 U/L (0-50); AST (SGOT) 31 U/L (17-59); Albumin 4.6 g/dl (3.5-5.0); Alkaline Phosphatase 142 U/L (38-126); Blood Urea Nitrogen 10 mg/dl (9-20); Calcium 9.3 mg/dl (8.4-10.2); Carbon Dioxide 27 mmol/L (22-30); Chloride 102 mmol/L (98-107); Glucose 106 mg/dl (70-99); Potassium 3.9 mmol/L (3.5-5.1); Sodium 140 mmol/L (135-145); Total Protein 7.2 g/dl (6.3-8.2); eGFR > 60.00
[2025-02-20 09:36] LABS: CEA 9.52 ng/ml
== END ==
LOC: REG 07:47
PROVIDERS: ATTENDING PHYSICIAN Internal Medicine Hematology & Oncology; FAMILY PHYSICIAN Family Medicine
DX: D50.9 Iron deficiency anemia, unspecified (principal); C18.0 Malignant neoplasm of cecum; C78.7 Secondary malignant neoplasm of liver and intrahepatic bile duct
CPT/HCPCS: 36415; 80053; 82378; 82570; 84156; 85025

== ENCOUNTER → 2025-03-06 07:20 | Outpatient (REF) | payer OTHER, SELFPAY ==
[2025-03-06 08:02] LABS: Hematocrit 37.9 % (39.0-52.0); Hemoglobin 12.8 g/dL (13.0-18.0); Mean Corp Hgb Conc. 33.8 g/dL (33.0-37.0); Mean Corpuscular Volume 95.2 fL (80.0-94.0); Nucleated Red Blood Cells % 0 % (-); Platelet Count 191 10^3/uL (130-400); Red Cell Dist. Width 16.2 % (11.5-14.5)
[2025-03-06 11:19] LABS: ALT (SGPT) 30 U/L (0-50); AST (SGOT) 32 U/L (17-59); Albumin 4.2 g/dl (3.5-5.0); Alkaline Phosphatase 118 U/L (38-126); Blood Urea Nitrogen 7 mg/dl (9-20); Calcium 8.9 mg/dl (8.4-10.2); Carbon Dioxide 26 mmol/L (22-30); Chloride 106 mmol/L (98-107); Glucose 98 mg/dl (70-99); Potassium 3.8 mmol/L (3.5-5.1); Sodium 137 mmol/L (135-145); Total Protein 6.7 g/dl (6.3-8.2); eGFR > 60.00
[2025-03-06 11:33] LABS: CEA 6.67 ng/ml
== END ==
LOC: REG 07:20
PROVIDERS: ATTENDING PHYSICIAN Internal Medicine Hematology & Oncology; FAMILY PHYSICIAN Family Medicine
DX: D50.9 Iron deficiency anemia, unspecified (principal); C18.0 Malignant neoplasm of cecum; C78.7 Secondary malignant neoplasm of liver and intrahepatic bile duct
CPT/HCPCS: 36415; 80053; 82378; 82570; 84156; 85025

== ENCOUNTER → 2025-03-20 07:37 | Outpatient (REF) | payer OTHER, SELFPAY ==
[2025-03-20 08:22] LABS: Hematocrit 40.6 % (39.0-52.0); Hemoglobin 13.5 g/dL (13.0-18.0); Mean Corp Hgb Conc. 33.3 g/dL (33.0-37.0); Mean Corpuscular Volume 99.3 fL (80.0-94.0); Nucleated Red Blood Cells % 0 % (-); Platelet Count 200 10^3/uL (130-400); Red Cell Dist. Width 16.1 % (11.5-14.5)
[2025-03-20 09:03] LABS: ALT (SGPT) 35 U/L (0-50); AST (SGOT) 29 U/L (17-59); Albumin 4.5 g/dl (3.5-5.0); Alkaline Phosphatase 130 U/L (38-126); Blood Urea Nitrogen 10 mg/dl (9-20); Calcium 9.2 mg/dl (8.4-10.2); Carbon Dioxide 31 mmol/L (22-30); Chloride 104 mmol/L (98-107); Glucose 96 mg/dl (70-99); Potassium 4.1 mmol/L (3.5-5.1); Sodium 139 mmol/L (135-145); Total Protein 7.1 g/dl (6.3-8.2); eGFR > 60.00
[2025-03-20 09:29] LABS: CEA 5.84 ng/ml
== END ==
LOC: REG 07:37
PROVIDERS: ATTENDING PHYSICIAN Internal Medicine Hematology & Oncology; FAMILY PHYSICIAN Family Medicine
DX: D50.9 Iron deficiency anemia, unspecified (principal); C18.0 Malignant neoplasm of cecum; C78.7 Secondary malignant neoplasm of liver and intrahepatic bile duct
CPT/HCPCS: 36415; 80053; 82378; 82570; 84156; 85025

== ENCOUNTER → 2025-03-29 08:00 | Outpatient (REF) | payer OTHER, SELFPAY | LOC: RAD 08:00 | PROVIDERS: FAMILY PHYSICIAN Family Medicine | DX: C78.7 Secondary malignant neoplasm of liver and intrahepatic bile duct (principal) | CPT/HCPCS: 74178; Q9967 ==

== ENCOUNTER → 2025-04-04 07:25 | Outpatient (REF) | payer OTHER, SELFPAY ==
[2025-04-04 08:21] LABS: Hematocrit 39.2 % (39.0-52.0); Hemoglobin 13.3 g/dL (13.0-18.0); Mean Corp Hgb Conc. 33.9 g/dL (33.0-37.0); Mean Corpuscular Volume 96.6 fL (80.0-94.0); Nucleated Red Blood Cells % 0 % (-); Platelet Count 193 10^3/uL (130-400); Red Cell Dist. Width 15.0 % (11.5-14.5)
[2025-04-04 08:47] LABS: ALT (SGPT) 24 U/L (0-50); AST (SGOT) 28 U/L (17-59); Albumin 4.4 g/dl (3.5-5.0); Alkaline Phosphatase 123 U/L (38-126); Blood Urea Nitrogen 12 mg/dl (9-20); Calcium 9.3 mg/dl (8.4-10.2); Carbon Dioxide 30 mmol/L (22-30); Chloride 102 mmol/L (98-107); Glucose 94 mg/dl (70-99); Potassium 3.9 mmol/L (3.5-5.1); Sodium 139 mmol/L (135-145); Total Protein 7.0 g/dl (6.3-8.2); eGFR > 60.00
[2025-04-04 09:14] LABS: CEA 4.23 ng/ml
== END ==
LOC: REG 07:25
PROVIDERS: ATTENDING PHYSICIAN Internal Medicine Hematology & Oncology; FAMILY PHYSICIAN Family Medicine
DX: D50.9 Iron deficiency anemia, unspecified (principal); C18.0 Malignant neoplasm of cecum; C78.7 Secondary malignant neoplasm of liver and intrahepatic bile duct
CPT/HCPCS: 36415; 80053; 82378; 82570; 84156; 85025